=== PATIENT | female | born 1955 | race Caucasian/White ===

== ENCOUNTER 2019-11-09 16:48 | Inpatient (IN) | payer MEDICARE, OTHER ==
[~2019-11-09] VITALS: Ht 170.2 cm; Wt 130.2 kg
[~2019-11-09 16:48] MED LIST: AMBIEN10 MG PO; ATORVASTATIN CA20 MG PO; CARBAMAZEPINE200 MG PO; CIPRO500 MG PO; DIAZEPAM5 MG PO; DIAZEPAM5 MG/1 M1 IV; DOXYCYCLINE HY100 MG PO; FUROSEMIDE40 MG PO; GLIPIZIDE ER5 MG PO; HYDROCODON-ACE1 EAC9 PO; INVOKANA PO; LEVOCETIRIZINE D5 MG PO; LOSARTAN POTAS100 MG PO; METFORMIN HCL500 MG PO; POTASSIUM99 M1 PO; PRENATAL FORMU1 EACH PO; PROMETHAZINE12.5 M1 PO; SOMA350 MG PO
--- OUTSIDE RECORDS SUMMARY | 2019-11-09 16:52 | XMS REPORT ---
Author Author [facility] Organization [facility] Address [address] [place] [address] Phone Unavailable Care Team Providers Care Alterations Supervisor Name Role Phone HALIMA SOMMERS, S (NS) BARRY PCP DAHU, S JIRIES Attphys Unavailable Nunu Howell Attphys TuesdayYvonne Attphys DAJOAO, S JIRIES Admphys Unavailable Payers Payer Name Policy Type Policy Number Effective Date Expiration Date Venita alvarez [facility] [id number] 2017 00:00:00 MICHELLE Nathan [facility] Medicare A & B [id number] 2002 00:00:00 [facility] Problems Condition Name Condition Details Condition Category Status Onset Date Resolution Date Last Treatment Date Treating Clinician Comments Source Congestive heart failure CHF (congestive heart failure) Problem Active [facility] Dyspnea Dyspnea Problem Active [facility] Fever Fever Problem Active [facility] Hypertension Hypertension Problem Active [facility] Obesity Obesity Problem Active [facility] Osteomyelitis Osteomyelitis Problem Active [facility] Type 2 diabetes mellitus Type 2 diabetes mellitus Problem Active [facility] Urinary tract infection UTI (urinary tract infection) Problem Active [facility] Allergies, Adverse Reactions, Alerts Allergy Name Allergy Type Status Severity Reaction(s) Onset Date Inacti ve Date Treating Clinician Comments Source Lisinopril Allergy to Substance Active Unknown 2019-05-23 00:00:00 [facility] Albuterol Allergy to Substance Active Unknown 2019-05-23 00:00:00 [facility] Topiramate Allergy to Substance Active Moderate 2019-05-23 00:00:0 0 [facility] Medications Ordered Medication Name Filled Medication Name Start Date Stop Da te Current Medication? Ordering Clinician Indication Dosage Frequency Signature (SIG) Comments Components Source Atorvastatin Calcium 20 Mg Tablet Atorvastatin Calcium 20 Mg Tablet Yes 20 Bedtime [facility] Carbamazepine 200 Mg Tablet Carbamazepine 200 Mg Tablet Yes [address] [facility] Carisoprodol (Soma) 350 Mg Tablet Carisoprodol (Soma) 350 Mg Tablet Yes 350 Every 6 Hours [facility] Ciprofloxacin Hcl (Cipro) 500 Mg Tablet Ciprofloxacin Hcl (C ipro) 500 Mg Tablet Yes 500 Every 12 Hours [facility] Diazepam 5 Mg Tablet Diazepam 5 Mg Tablet Yes 10 Twice A Day [facility] Doxycycline Hyclate 100 Mg Capsule Doxycycline Hyclate 100 Mg Capsule Yes 100 Twice A Day [facility] Furosemide 40 Mg Tablet Furosemide 40 Mg Tablet Yes 40 Daily [facility] Glipizide (Glipizide Er) 5 Mg Tab.er.24 Glipizide (Glipizide Er) 5 Mg Tab.er.24 Yes 10 Before Supper [facility] Hydrocodone Bit/Acetaminophen (Hydrocodon-Acetaminophn 10-325) 1 Each Tablet Hydrocodone Bit/Acetaminophen (Hydrocodon-Acetaminophn 10-325) 1 Each Tablet Yes Four Times Daily as needed for P ain [facility] Invokana Invokana Yes 100 Before Lunch [facility] Losartan Potassium 100 Mg Tablet Losartan Potassium 100 Mg Tablet Yes 50 Daily for High Blood Pressure [facility] Metformin Hcl 500 Mg Tablet Metformin Hcl 500 Mg Tablet Yes [address] [facility] Potassium Gluconate (Potassium) 99 Mg Tablet Potassium Gluconate (Potassium) 99 Mg Tablet Yes 99 Daily [facility] Vits W-Ca,Fe,Fa(<1MG) ( Formula) 1 Ea ch Tablet Vits W- Ca,Fe,Fa(<1MG) ( Formula) 1 Each Tablet Yes Daily [facility] Promethazine Hcl 12.5 Mg Tablet Promethazine Hcl 12.5 Mg Tablet Yes 12.5 As Needed as needed for Nausea [facility] Zolpidem Tartrate (Ambien) 10 Mg Tablet Zolpidem Tartrate (A mbien) 10 Mg Tablet Yes 10 Bedtime as needed for Insomnia [facility] Levocetirizine Dihydrochloride 5 Mg Tablet, 5 Mg Oral Levocetirizine Dihydrochloride 5 Mg Tablet, 5 Mg Oral 2017-06-23 00:00:00 No [address] [facility] Diazepam 5 Mg/1 Ml Vial, 5 Mg Intraven Diazepam 5 Mg/1 Ml Vial, 5 Mg Intraven 2016-09-23 00:00:00 No 5 As Needed as needed for Anxiety [facility] Procedures Procedure Date / Time Performed Performing Clinician [facility] Excision of neuroma 2019-05-31 00:00:00 DORIE MARQUEZ [facility] MRI (magnetic resonance imaging) 2019-05-30 00:00:00 MANOJ MOBLEY [facility] Computed tomography, lower extremity; with contrast aidan fields(s) 2019-05-28 00:00:00 RAIZA IBARRA S [facility] Computed tomography of chest with contrast 2019-05-23 00:00:00 H MARYBEL LUIS [facility] Encounters Start Date/Time End Date/Time Encounter Type Admission Type Attendi [facility] Care Department Encounter ID Source 2019-05-23 18:32:00 2019-06-01 16:15:00 Discharged Inpatient 1 RAIZA IBARRA [facility] [id number] [facility] 2016-09-03 10:44:00 2016-09-03 23:59:00 Outpatient Harsh Howell [facility] [id number] [facility] 2016-08-25 11:06:00 2016-08-25 23:59:00 Outpatient Harsh Howell [facility] [id number] [facility] 2014-04-12 11:52:00 2014-04-12 23:59:00 Outpatient Tuesday, Rosy Russell BALAJIMAHarsh [facility] [id number] 2014-03-25 08:44:00 2014-03-25 23:59:00 Outpatient Tuesday, Rosy Russell [facility] [id number] Results Test Description Test Time Test Comments Results Result Comments Source Bedside Glucose 2019-06-01 16:15:00 Test Item Bedside Glucose (test code = 49343-8) 133 70-120 Meter ID: [id number] [facility] 2019-06-01 07:03:00* Test Item Value Reference Range Interpretation Comments Sodium Level (test code = 2951-2) 134 136-145 [facility]assium Lbhhn6652-52-64 07:03:00* Test Item Value Reference Range Interpretation Comments Potassium Level (test code = 2823-3) 3.2 3.5-5.1 [facility]Chloride Kpqot7675-72-10 07:03:00* Test Item Value Reference Range Interpretation Comments Chloride Level (test code = 2075-0) 104 98-107 [facility] HeightsCarbon Dioxide Sglus8198-95-23 07:03:00* Test Item Value Reference Range Interpretation Comments Carbon Dioxide Level (test code = 2028-9) 23 22-29 [facility] HeightsAnion Ohc6481-10-25 07:03:00* Test Item Value Reference Range Interpretation Comments Anion Gap (test code = 26372-9) 10.2 8-16 [facility] Urea Nytsefms5043-10-87 07:03:00* Test Item Value Reference Range Interpretation Comments Blood Urea Nitrogen (test code = 3094-0) 10 7-26 [facility]Creatinine2019-12-06 07:03:00* Test Item Value Reference Range Interpretation Comments Creatinine (test code = 2160-0) 0.59 0.57-1.11 [facility]UN/Creatinine Yvwpn5791-86-96 07:03:00* Test Item Value Reference Range Interpretation Comments BUN/Creatinine Ratio (test code = 3097-3) 17 6 [facility] HeightsEstimat Glomerular Filtration Rate 2019-06-01 07:03:00* Test Item Value Reference Range Interpretation Comments Estimat Glomerular Filtration Rate (test code = 875123848) > 60 >60 Ranges were taken from the National Kidney Disease Education Program and the [facility] literature.Reference ranges:60 or greater: Hyyevq27-39 ( for 3 consecutive months): Chronic kidney disease 15 or less: Kidney failureSet[facility] HeightsGlucose Tlnuw8046-25-27 07:03:00* Test Item Value Reference Range Interpretation Comments Glucose Level (test code = FMM2866) 148 74-118 [facility] HeightsCalcium Jliby2792-25-35 07:03:00* Test Item Value Reference Range Interpretation Comments Calcium Level (test code = 64600-6) 8.0 8.4-10.2 [facility] HeightsVancomycin Level Usuupa7144-66-00 06:33:00* Test Item Value Reference Range Interpretation Comments Vancomycin Level Trough (test code = 4092-3) 14.1 5.0-10.0 Results repeated and called to ABDIAS REYNOSO at 0633 on 06/01/19 by Flakito Robertson . Read back and verified.[facility] HeightsWhite Blood Xhzmu9883-99-15 06:17:00* Test Item Value Reference Range Interpretation Comments White Blood Count (test code = 6690-2) 6.80 4.8-10.8 [facility] HeightsRed Blood Jfgli9779-90-69 06:17:00* Test Item Value Reference Range Interpretation Comments Red Blood Count (test code = 789-8) 3.46 3.6-5.1 [facility]Hemoglobin2019-12-06 06:17:00* Test Item Value Reference Range Interpretation Comments Hemoglobin (test code = 08108-4) 10.8 12.0-16.0 [facility] HeightsHematocrit2019-12-06 06:17:00* Test Item Value Reference Range Interpretation Comments Hematocrit (test code = 4544-3) 34.6 34.2-44.1 [facility] HeightsMean Corpuscular Zdsmuv0335-36-71 06:17:00* Test Item Value Reference Range Interpretation Comments Mean Corpuscular Volume (test code = 787-2) 100.0 81-99 [facility] HeightsMean Corpuscular Erwroluznc9008-40-59 06:17:00* Test Item Value Reference Range Interpretation Comments Mean Corpuscular Hemoglobin (test code = 785-6) 31.2 28-32 [facility] HeightsMean Corpuscular Hemoglobin Concent 2019-06-01 06:17:00* Test Item Value Reference Range Interpretation Comments Mean Corpuscular Hemoglobin Concent (test code = 786-4) 31.2 31-35 [facility] HeightsRed Cell Distribution Ynbtd2010-07-09 06:17:00* Test Item Value Reference Range Interpretation Comments Red Cell Distribution Width (test code = 21648-1) 13.8 11.7 -14.4 [facility] HeightsPlatelet Xnycd3585-31-92 06:17:00* Test Item Value Reference Range Interpretation Comments Platelet Count (test code = 777-3) 236 140-360 [facility] HeightsNeutrophils (%) (Auto)2019-06-01 06:17:00 * Test Item Value Reference Range Interpretation Comments Neutrophils (%) (Auto) (test code = 32540-0) 69.5 38.7-80.0 [facility] HeightsLymphocytes (%) (Auto)2019-06-01 06:17:00 * Test Item Value Reference Range Interpretation Comments Lymphocytes (%) (Auto) (test code = 736-9) 16.8 18.0-39.1 [facility]Monocytes (%) (Auto)2019-06-01 06:17:00* Test Item Value Reference Range Interpretation Comments Monocytes (%) (Auto) (test code = 5905-5) 9.6 4.4-11.3 [facility]Eosinophils (%) (Auto)2019-06-01 06:17:00 * Test Item Value Reference Range Interpretation Comments Eosinophils (%) (Auto) (test code = 713-8) 1.8 0.0-6.0 [facility]Basophils (%) (Auto)2019-06-01 06:17:00* Test Item Value Reference Range Interpretation Comments Basophils (%) (Auto) (test code = 706-2) 0.4 0.0-1.0 [facility] HeightsIM GRANULOCYTES %2019-06-01 06:17:00* Test Item Value Reference Range Interpretation Comments IM GRANULOCYTES % (test code = IM GRANULOCYTES %) 1.9 0.0- 1.0 [facility] HeightsNeutrophils # (Auto)2019-06-01 06:17:00* Test Item Value Reference Range Interpretation Comments Neutrophils # (Auto) (test code = 751-8) 4.7 2.1-6.9 [facility] HeightsLymphocytes # (Auto)2019-06-01 06:17:00* Test Item Value Reference Range Interpretation Comments Lymphocytes # (Auto) (test code = 69812-2) 1.1 1.0-3.2 [facility] HeightsMonocytes # (Auto)2019-06-01 06:17:00* Test Item Value Reference Range Interpretation Comments Monocytes # (Auto) (test code = 742-7) 0.7 0.2-0.8 [facility]Eosinophils # (Auto)2019-06-01 06:17:00* Test Item Value Reference Range Interpretation Comments Eosinophils # (Auto) (test code = 711-2) 0.1 0.0-0.4 [facility]Basophils # (Auto)2019-06-01 06:17:00* Test Item Value Reference Range Interpretation Comments Basophils # (Auto) (test code = 704-7) 0.0 0.0-0.1 [facility] HeightsAbsolute Immature Granulocyte (auto 2019-06-01 06:17:00* Test Item Value Reference Range Interpretation Comments Absolute Immature Granulocyte (auto (anil t code = Absolute Immature Granulocyte (auto) 0.13 0-0.1 [facility] HeightsClostridium Difficile Toxin A & B 2019-05-31 14:19:00* Test Item Value Reference Range Interpretation Comments Clostridium Difficile Toxin A & B (test code = 376293436) POSI TIVE NEGATIVE Results called to JOHNNY THOMPSON at 1418 on 05/31/19 by Dominique Hagan. RB OK.Resu lts called to ARMANDO LUNA in infection control at 1418 on 05/31/19 by Dominique orona.PT had 3 bm in 24 hours;no previous positiveTesting on stool aspirate spe cimens is outside industrial accountant claims since specimen type not validated on this assay.[facility] HeightsTotal Tztpdndlr2221-44-25 06:14:00 * Test Item Value Reference Range Interpretation Comments Total Bilirubin (test code = 1975-2) 0.3 0.2-1.2 [facility] HeightsAspartate Amino Transf (AST/SGOT) 2019-05-31 06:14:00* Test Item Value Reference Range Interpretation Comments Aspartate Amino Transf (AST/SGOT) (test code = Aspartate Amino Transf (AST/SGOT)) 22 5-34 [facility] HeightsAlanine Aminotransferase (ALT/SGPT) 2019-05-31 06:14:00* Test Item Value Reference Range Interpretation Comments Alanine Aminotransferase (ALT/SGPT) (test code = 1742-6) 19 0-55 [facility] HeightsTotal Csraqix3440-25-55 06:14:00* Test Item Value Reference Range Interpretation Comments Total Protein (test code = 2885-2) 6.7 6.5-8.1 [facility] HeightsAlbumin2019-12-05 06:14:00* Test Item Value Reference Range Interpretation Comments Albumin (test code = 1751-7) 2.3 3.5-5.0 [facility] HeightsGlobulin2019-12-05 06:14:00* Test Item Value Reference Range Interpretation Comments Globulin (test code = 60755-3) 4.4 2.3-3.5 [facility] HeightsAlbumin/Globulin Wtceh9237-11-96 06:14:00 * Test Item Value Reference Range Interpretation Comments Albumin/Globulin Ratio (test code = 1759-0) 0.5 0.8-2.0 [facility] HeightsAlkaline Gfwkfmdwmnm1101-49-25 06:14:00* Test Item Value Reference Range Interpretation Comments Alkaline Phosphatase (test code = 6768-6) 80 40-150 [facility] HeightsDifferential Total Cells Counted 2019-05-30 08:15:00* Test Item Value Reference Range Interpretation Comments Differential Total Cells Counted (test code = Differeleuterio tial Total Cells Counted) 100 [facility] HeightsNeutrophils % (Manual)2019-05-30 08:15:00 * Test Item Value Reference Range Interpretation Comments Neutrophils % (Manual) (test code = 86953-3) 72 40-74 [facility] HeightsBand Neutrophils %2019-05-30 08:15:00* Test Item Value Reference Range Interpretation Comments Band Neutrophils % (test code = 764-1) 3 [facility]Lymphocytes % (Manual)2019-05-30 08:15:00 * Test Item Value Reference Range Interpretation Comments Lymphocytes % (Manual) (test code = 737-7) 13 19-48 [facility]Monocytes % (Manual)2019-05-30 08:15:00* Test Item Value Reference Range Interpretation Comments Monocytes % (Manual) (test code = 744-3) 10 3.4-9.0 [facility]Eosinophils % (Manual)2019-05-30 08:15:00 * Test Item Value Reference Range Interpretation Comments Eosinophils % (Manual) (test code = 714-6) 2 0-7 [facility] HeightsPlatelet Dylgrzpc1072-94-55 08:15:00* Test Item Value Reference Range Interpretation Comments Platelet Estimate (test code = 89399-0) ADEQUATE [facility] HeightsPlatelet Morphology Wgrdfyf0179-99-07 08:15:00* Test Item Value Reference Range Interpretation Comments Platelet Morphology Comment (test code = 31828-9) NORMAL [facility] HeightsPoikilocytosis2019-12-04 08:15:00* Test Item Value Reference Range Interpretation Comments Poikilocytosis (test code = 779-9) SLIGHT [facility] HeightsAnisocytosis2019-12-04 08:15:00* Test Item Value Reference Range Interpretation Comments Anisocytosis (test code = 702-1) SLIGHT [facility] HeightsOvalocytes2019-12-04 08:15:00* Test Item Value Reference Range Interpretation Comments Ovalocytes (test code = 774-0) FEW [facility] HeightsRed Cell Morphology Bmwwobo4585-48-44 08:15:00* Test Item Value Reference Range Interpretation Comments Red Cell Morphology Comment (test code = 6742-1) ABNORMAL [facility] HeightsBlood Yuccdet4166-66-49 12:32:00* Test Item Value Reference Range Interpretation Comments Blood Culture (test code = 31818016) NO GROWTH AFTER 5 DAYS, FINAL REPORT [facility] HeightsCT FOOT LEFT [id number] 13:12:00 [place] [address] Patient Name: ALEXANDRE HARDY MR #: [id number] : 1955 Age/Sex: 63/F Req #: [id number] Adm Physician: RAIZA IBARRA MD Ordered by: RAIZA IBARRA MD Report #: [id number] Location: MED/SURG2 Room/Bed: [facility] Procedure: [id number] C T/CT FOOT LEFT W Exam Date: 05/28/19 Exam Time: 1215 REPORT STATUS: Signed TECHNIQUE: Computed tomography imaging of the LEFT foot was performed with injected c ontrast. 100 cc of Isovue-370.Dose modulation, iterative reconstruction, and/o r weight based adjustment of the mA/kV was utilized to reduce the radiation do se to as low as reasonably achievable. HISTORY: Pain, evaluate for infecti on COMPARISON: None available. DISCUSSION: Soft tissue ulceration o f the lateral foot extending to the underlying bone. The cortical erosion a nd periostitis involving the anterolateral calcaneus, lateral cuboid, and fift h metatarsal base. Soft tissue phlegmon/small abscess measuring approximate ly 1.3 cm adjacent to the calcaneus. Skin thickening. Joint soft tissue s welling. IMPRESSION: Soft tissue ulceration of the lateral foot with osteomyelitis of the calcaneus, cuboid, and fifth metatarsal base Signed by: Dr. Marcelino Stewart M.D. on 05/28/2019 1:18 PM Dictated By: MARCELINO SCHULTZ MD 1318 Trans cribed By: INDU on 05/28/19 1318 COPY TO: RAIZA IBARRA MD Reactive Pyprenooqum4239-09-60 08:50:00* Test Item Value Reference Range Interpretation Comments Reactive Lymphocytes (test code = 81684-2) 1 [facility] HeightsCreatine Kinase UG4134-70-00 18:03:00* Test Item Value Reference Range Interpretation Comments Creatine Kinase MB (test code = 56642-0) 1.60 0-5.0 [facility] HeightsTroponin P0074-60-37 18:03:00* Test Item Value Reference Range Interpretation Comments Troponin I (test code = IYX6750) 0.028 0-0.300 [facility] HeightsCreatine Uhyoij2444-04-69 17:56:00* Test Item Value Reference Range Interpretation Comments Creatine Kinase (test code = 2157-6) 288 29-168 [facility] HeightsTriglycerides Qkpjn7792-76-88 09:45:00* Test Item Value Reference Range Interpretation Comments Triglycerides Level (test code = 2571-8) 113 0-149 [facility] HeightsCholesterol Bhbpe8683-81-17 09:45:00* Test Item Value Reference Range Interpretation Comments Cholesterol Level (test code = 2093-3) 92 0-199 Less than 200 mg/dL Low Mdbn752 - 239 mg/dL Borderline Scro097 m g/dl and greater High Risk [facility] HeightsLDL Ydfazcjiqac2437-20-26 09:45:00* Test Item Value Reference Range Interpretation Comments LDL Cholesterol (test code = 2089-1) 54 60-130 [facility] HeightsHDL Jtteunrrely5527-26-86 09:45:00* Test Item Value Reference Range Interpretation Comments HDL Cholesterol (test code = 2085-9) 15 40-60 [facility] HeightsCholesterol/HDL Yuegs9411-10-04 09:45:00 * Test Item Value Reference Range Interpretation Comments Cholesterol/HDL Ratio (test code = 9830-1) 6.1 3.0-3.6 [facility] HeightsArterial Blood bP6191-61-05 09:13:00* Test Item Value Reference Range Interpretation Comments Arterial Blood pH (test code = 2744-1) 7.46 7.31-7.41 [facility] HeightsArterial Blood Partial Pressure CO2 2019-05-26 09:13:00* Test Item Value Reference Range Interpretation Comments Arterial Blood Partial Pressure CO2 (test code = 2019-01) 47 41-51 [facility] HeightsArterial Blood Partial Pressure O2 2019-05-26 09:13:00* Test Item Value Reference Range Interpretation Comments Arterial Blood Partial Pressure O2 (test code = 2019-8) 91 80-105 [facility] HeightsArterial Blood IQO59629-36-14 09:13:00* Test Item Value Reference Range Interpretation Comments Arterial Blood HCO3 (test code = 1960-4) 33 23-28 [facility] HeightsArterial Blood Base Ogdhhj8745-26-79 09:13:00* Test Item Value Reference Range Interpretation Comments Arterial Blood Base Excess (test code = 1925-7) 9.0 -2-3 [facility] HeightsArterial Blood Oxygen Saturation 2019-05-26 09:13:00* Test Item Value Reference Range Interpretation Comments Arterial Blood Oxygen Saturation (test code = 2708-6) 97.0 95-98 [facility] HeightsFiO22019-11-30 09:13:00* Test Item Value Reference Range Interpretation Comments FiO2 (test code = FiO2) 36 [facility] GOPOFXNQ2166-30-48 15:42:00 [place] [address] Patient Name: ALEXANDRE HARDY MR #: [id number] : 1955 Age/Sex: 63/F Req #: [id number] Adm Physician: RAIZA IBARRA MD Ordered by: DORIE MARQUEZ DPM Report #: [id number] Location: ICU Room/Bed: [place] [address] Procedure: [id number] DX/FOOT LEFT COMPLETE Exam Date: Exam Time: REPORT STATUS: Signed EXAMINATION: FO OT LEFT COMPLETE INDICATION: Lateral foot wound COMPARISON: None FINDINGS: Portable radiographs of the left foot were obtained. The re are erosive changes along the base of the fifth metatarsal and the proximal fifth metatarsal shaft width sclerosis suggesting a component of chronic oste omyelitis as well as periosteal reaction suggesting possible acute component. There is extensive associated diffuse soft tissue swelling. No acute fracture or dislocation. Scattered degenerative changes. IMPRESSION: Erosion, s clerotic changes, and periosteal reaction along the base of the fifth metatars al concerning can be seen with acute on chronic osteomyelitis. Significant ass ociated diffuse soft tissue swelling. Signed by: Gianluca Hurt MD on 05/25/20 3:45 PM Dictated By: GIANLUCA HURT MD 44 Transcribed By: INDU on 05/25/191544 COPY TO: DOIRE MARQUEZ DPM Magnesium Oydpy1909-07-77 06:47:00* Test Item Value Reference Range Interpretation Comments Magnesium Level (test code = 83599-5) 1.8 1.3-2.1 [facility] SINGLE (PORTABLE)2019-05-24 13:33:00 [place] [address] Patient Name: ALEXANDRE HARDY MR #: [id number] : 1955 Age/Sex: 63/F Req #: [id number] Adm Physician: RAIZA IBARRA MD Ordered by: MARYBEL RIOJAS MD Report #: [id number] Location: ICU Room/Bed: [place] [address] Procedure: [id number] DX/ CHEST SINGLE (PORTABLE) Exam Date: 05/24/19 Exam Jaspal e: 1315 REPORT STATUS: Signed ` Examination: Single AP view of the chest. COMPARISON: Portable chest 2018 INDICATION: PICC placement IMPRESSION: 1. Lines and Tu bes: Interval placement of right-sided PICC line, which has its distal tip pro jecting in the mid SVC. 2. Otherwise, no interval change in low lung volumes, central venous congestion and bibasilar patchy airspace opacities, likely refl ecting atelectasis Signed by: Dr. Antonio Sun M.D. on 05/24/2019 1:3 9 PM Dictated By: ANTONIO SUN MD 133 Transcribed By: INDU on 05/24/19 1339 COPY TO : MARYBEL RIOJAS MD CHEST SINGLE (PORTABLE)2019-05-24 06:32:00 [place] [address] Patient Name: ALEXANDRE HARDY MR #: [id number] : 1955 Age/Sex: 63/F Req #: [id number] Adm Physician: RAIZA IBARRA MD Ordered by: VICKY SOMMERS, NICK SOMMERS Report #: [id number] Location: ICU Room/Bed: ICU [facility] Procedure: 1128-00 [id number] DX/CHEST SINGLE (PORTABLE) Exam Date: 05/24/19 Ex am Time: 0450 REPORT STATUS: Signed EXAMINATION: CHEST SINGLE (PORTABLE) INDICATION: CHF, pneumonia. COMPARISON: Chest radiograph 05/23/2019, CT Chest 05/23/2019. FINDINGS: AP view TUBES and LINES: None. LUNGS: Low lung volumes . There is perihilar fullness and indistinctness of the pulmonary vasculature . Linear and patchy opacities at the lung bases, likely atelectasis. No new co nsolidation. PLEURA: No pleural effusion or pneumothorax. HEART AND M EDIASTINUM: Unremarkable cardiomediastinal silhouette. BONES AND SOFT TISSU ES: No acute osseous lesion. Soft tissues are unremarkable. UPPER ABDOM EN: No free air under the diaphragm. IMPRESSION: Low lung volumes wi th mild pulmonary interstitial edema. Opacities at the lung bases, more likely atelectasis than pneumonia. Signed by: Dr. David Carreon MD on 05/24/2019 6: 34 AM Dictated By: DAVID CARREON MD 3 Transcribed By: INDU on 05/24/19633 COPY TO: NICK BARRAZA Carbamazepine (Tegretol) Wwmci6877-25-29 05:55:00* Test Item Value Reference Range Interpretation Comments Carbamazepine (Tegretol) Level (test code = 3432-2) 6.43 4. 0-12.0 [facility] [id number] 22:13:00 [place] [address] Patient Name: ALEXANDRE HARDY MR #: [id number] : 1955 Age/Sex: 63/F Req #: [id number] Adm Physician: RAIZA IBARRA MD Ordered by: MARYBEL RIOJAS MD Report #: [id number] Location: ICU Room/Bed: ICU [facility] Procedure: [id number] CT/ CT CHEST W Exam Date: 05/23/19 Exam Time: 2146 REPORT STATUS: Signed EXAM: CT Chest WITH contrast- Pulmonary Embolism Protocol INDICATION: Shortness of breath. COMPARISON: Chest radiograph 05/23/2019. TECHNIQUE: Chest was sca nned utilizing a multidetector helical scanner from the lung apex through the level of the diaphragm after administration of IV contrast. Thin section recon structions were obtained with special concentration on the pulmonary arteries. Coronal and sagittal reformations were obtained. Pulmonary embolism protocol was performed. IV CONTRAST: 100 cc of Isovue 370 RADIA TION DOSE: Total DLP: 551.3 mGy*cm Dose modulation, iterative r econstruction, and/or weight based adjustment of the mA/kV was utilized to red uce the radiation dose to as low as reasonably achievable. CO MPLICATIONS: None FINDINGS: LINES/ TUBES: None. PULMONARY ARTERIE S: Motion artifact and contrast opacification limits evaluation of the segment al and subsegmental pulmonary arteries. No evidence of main or lobar pulmonary embolism. Main pulmonary artery measures 3.7 cm in diameter. LUNGS AND A IRWAYS: The central airways are patent. Linear subsegmental atelectasis in the lung bases. Motion artifact limits evaluation for underlying pulmonary nodule. Mild smooth interlobular septal in the upper lobes with patchy ground glass opacities. PLEURA: The pleural spaces are clear. HEART AND MEDIASTINUM : The thyroid gland is normal. No mediastinal, hilar or axillary lymphadenopa thy. No cardiomegaly or pericardial effusion. Scattered coronary and aortic at herosclerotic calcifications. UPPER ABDOMEN: Limited contrast-enhanced view s of the upper abdomen. Reflux of contrast into the IVC, suggestive of right h eart dysfunction. BONES: No acute osseous abnormality. Bilateral cervical ribs. Old healed bilateral rib fractures. SOFT TISSUES: Unremarkable. IMPRESSION: Motion artifact and contrast opacification limits evaluation of the segmental and subsegmental pulmonary arteries. No evidence of main or lob ar pulmonary embolism. Dilated main pulmonary artery, suggestive of pulmo nary arterial hypertension. Coronary atherosclerosis. Mild pulmonary i nterstitial edema in the upper lobes. Signed by: Dr. David Carreon MD on 04/28 10:21 PM Dictated By: DAVID CARREON MD 20 Transcribed By: INDU on 05/23/192220 COPY TO: MARYBEL RIOJAS MD Influenza Virus Types A,B Fzkeqpv9979-04-62 20:31:00* Test Item Value Reference Range Interpretation Comments Influenza Virus Types A,B Antigen (test code = 73526-2) NEGATIVE NEGATIVE [facility] (PORTABLE)2019-05-23 19:28:00 [facility] [address] [place] [address] Patient Name: ALEXANDRE HARDY MR #: [id number] : 1955 Age/Sex: 63/F Req #: [id number] Adm Physician: RAIZA IBARRA MD Ordered by: NICK PERRY MD, MD Report #: [id number] Location: [facility] Room/Bed: [place] [address] Procedure: 1127-00 38 DX/CHEST SINGLE (PORTABLE) Exam Date: 05/23/19 Ex am Time: 1814 REPORT STATUS: Signed EXAMINATION: CHEST SINGLE (PORTABLE) INDICATION: ERMD OR SHERRIE [id number] Y COMPARISON: Chest radiograph 06/26/2017 FINDINGS: AP view TUBES and LINES: None. LUNGS: Low lung volumes. Bilateral interstitial edema. No lobar consolidations. PLEU RA: No pleural effusion or pneumothorax. HEART AND MEDIASTINUM: Mild enla rgement of the cardiac silhouette. BONES AND SOFT TISSUES: No acute osse ous lesion. Soft tissues are unremarkable. UPPER ABDOMEN: No free air un sherrie the diaphragm. IMPRESSION: Bilateral interstitial edema. Signed by: Dr. Joy Paez M.D. on 05/23/2019 7:29 PM Dicta ankush By: JOY PAEZ MD 28 Transcribed By: INDU on 05/23/191928 COPY T O: NICK PERRY Thyroid Stimulating Hormone (TSH)2019-05-23 18:21:00 * Test Item Value Reference Range Interpretation Comments Thyroid Stimulating Hormone (TSH) (test code = 80342-7) 0.406 0.350-4.940 [facility]-Type Natriuretic Twaghrx5936-32-75 18:14:00* Test Item Value Reference Range Interpretation Comments B-Type Natriuretic Peptide (test code = 84844-4) 116.4 0-100 [facility]2019-[facility] 17:59:00* Test Item Value Reference Range Interpretation Comments Lipase (test code = 3040-3) < 4 8-78 [facility] VFL3274-89-03 17:58:00* Test Item Value Reference Range Interpretation Comments Urine WBC (test code = 5821-4) 11-20 0-5 [facility] VFX1029-42-16 17:58:00* Test Item Value Reference Range Interpretation Comments Urine RBC (test code = 48723-5) 6-10 0-5 [facility] Exvepshm4355-29-88 17:58:00* Test Item Value Reference Range Interpretation Comments Urine Bacteria (test code = 29695-7) MANY NONE [facility] Epithelial Rwvkx7019-99-23 17:58:00 * Test Item Value Reference Range Interpretation Comments Urine Epithelial Cells (test code = 83738-1) NONE NONE [facility] Amorphous Bpthlxsg5465-80-23 17:58:00* Test Item Value Reference Range Interpretation Comments Urine Amorphous Sediment (test code = 8246-1) MODERATE FEW [facility] Xmdyj4016-42-21 17:54:00* Test Item Value Reference Range Interpretation Comments Lactic Acid Level (test code = Lactic Acid Level) 1.7 0.5- 2.0 [facility] Ervk8032-04-44 17:49:00* Test Item Value Reference Range Interpretation Comments Prothrombin Time (test code = 5902-2) 15.5 11.9-14.5 [facility] International Ratio 2019-05-23 17:49:00* Test Item Value Reference Range Interpretation Comments Prothromb Time International Ratio (test code = 6301-6) 1.17 Oral Anticoagulant Therapy INR Values:1. Low Intensity Therapy 1.5 - 2.02 . Moderate Intensity Therapy 2.0 - 3.03. High Intensity Therapy(1) 2.5 - 3. 54. High Intensity Therapy(2) 3.0 - 4.05. Panic Value INR > 5.0 [facility] Partial Thromboplast Time 2019-05-23 17:49:00* Test Item Value Reference Range Interpretation Comments Activated Partial Thromboplast Time (test code = 64616-9) 33.2 23.8-35.5 [facility] Xoylk1456-21-70 17:46:00* Test Item Value Reference Range Interpretation Comments Urine Color (test code = 5778-6) YELLOW YELLOW [facility] Tujkmje1454-24-07 17:46:00* Test Item Value Reference Range Interpretation Comments Urine Clarity (test code = 30066-1) CLOUDY CLEAR [facility] Specific Empufwy3559-03-64 17:46:00 * Test Item Value Reference Range Interpretation Comments Urine Specific [place] (test code = 5811-5) 1.020 1.010-1.02 5 [facility] yC9913-14-03 17:46:00* Test Item Value Reference Range Interpretation Comments Urine pH (test code = 64997-3) 6 5-7 [facility] Leukocyte Fztobiol5590-54-14 17:46:00* Test Item Value Reference Range Interpretation Comments Urine Leukocyte Esterase (test code = 29143-0) NEGATIVE NEGATIV E [facility] Werksel0457-81-05 17:46:00* Test Item Value Reference Range Interpretation Comments Urine Nitrite (test code = 45840-7) POSITIVE NEGATIVE [facility] Uglwgxl5734-12-50 17:46:00* Test Item Value Reference Range Interpretation Comments Urine Protein (test code = 26902-3) 2+ NEGATIVE [facility] Glucose (UA)2019-05-23 17:46:00* Test Item Value Reference Range Interpretation Comments Urine Glucose (UA) (test code = 91070-8) 2+ NEGATIVE [facility] Faqyerm9303-84-80 17:46:00* Test Item Value Reference Range Interpretation Comments Urine Ketones (test code = 73484-4) 1+ NEGATIVE [facility] Hlhmhwebeyri8416-35-73 17:46:00* Test Item Value Reference Range Interpretation Comments Urine Urobilinogen (test code = 46394-3) 0.2 0.2-1 [facility] Gmrngmemr5809-14-39 17:46:00* Test Item Value Reference Range Interpretation Comments Urine Bilirubin (test code = 1977-8) NEGATIVE NEGATIVE [facility] Gltgy1736-73-45 17:46:00* Test Item Value Reference Range Interpretation Comments Urine Blood (test code = 95295-5) 1+ NEGATIVE [facility] [address] [place] [address] Patient Name: ALEXANDRE HARDY MR #: [id number] : 1955 Age/Sex: 61/F Req #: [id number] Adm Physician: RAIZA IBARRA MD Ordered by: RAIZA IBARRA MD Report #: [id number] [facility]: [facility] Room/Bed: [facility] Procedure: [id number] M RI/MRI FOOT LEFT WOW Exam Date: 06/28/17 Exam Time: 1015 REPORT STATUS: Signed MRI of the left foot with and without contra st. History: Foot pain. Osteomyelitis. Infection. Technique: Multiplan ar multisequence MRI of the foot with and without intravenous contrast. 10 cc IV gadolinium contrast material was administered. Comparison: Radiographs 06/23/2017. MRI 09/24/2016 Findings: There is a large skin defect/ulcera tion at the lateral aspect of the foot at the level of the proximal fifth meta tarsal and cuboid bone. There is adjacent abnormal soft tissue edema. Th ere is adjacent abnormal contrast enhancement and a small amount of air within the soft tissues. The abnormal contrast enhancement of the surrounding soft t issues extends to the level of the adjacent bone. There is what appears to be an adjacent phlegmon. No well-formed abscess is seen. There is abnormal adj acent cortical destruction and bone marrow edema involving the cuboid bone and proximal fifth metatarsal. This is consistent with osteomyelitis. Additi onally, there is abnormal bone marrow edema in the anterior lateral calcaneus and in the cuneiform bones. This may be stress related. There is bone marrow e josh in the proximal second, third and fourth metatarsals which also could be stress related. There is diffuse muscle atrophy. Impression: Skin de fect/ulceration with associated cellulitis, phlegmon and osteomyelitis as desc ribed above. This predominantly involves the lateral aspect of the foot at the level of the proximal fifth metatarsal and adjacent cuboid bones. This is wor se when compared with the prior MRI dated 09/24/2016. Signed by: Dr. Renee Siegel M.D. on 06/28/2017 11:59 AM Dictated By: YARI SIEGEL MD, MD Elec tronically Signed By: YARI SIEGEL MD, MD on 06/28/17 115 Transcribed By: ISSA ARELLANO on 06/28/17 1159 COPY TO: RAIZA IBARRA MD CHEST XRAY LINE PLACEMENT [place] [address] Patient Name: ALEXANDRE HARDY MR #: [id number] : 1955 Age/Sex: 61/F Req #: [id number] Adm Physician: RAIZA IBARRA MD Ordered by: DARIUS RYAN MD Report #: [id number] Location: MED/SURG3 Room/Bed: [facility] Procedure: [id number] DX /CHEST XRAY LINE PLACEMENT Exam Date: 06/26/17 Exam Time: 0945 REPORT STATUS: Signed Portable chest x-ray CPT code 71 010 INDICATION: Line placement COMPARISON: Chest x-ray 09/24/2016 FINDINGS: Frontal view of the chest obtained at 0728 hours. The cardiac silhouette is top normal in size and stable. Right PICC line terminates in the SVC without pneumothorax. The pulmonary vascular marking are normal. T he lungs demonstrate chronic subsegmental atelectasis of the lingula and right lung base. No evidence of infiltrate or mass. There is blunting of the r ight lateral costophrenic angle. Blunting of the left lateral costophrenic ang le is stable. The osseous structures are stable. IMPRESSION: 1. Right PICC line as described above. No pneumothorax. 2. New blunting of the right lateral costophrenic angle is suggestive of pleural thickening or effusi on. 3. Subsegmental atelectasis of the lingula is stable. Signed by: Dr. Leonardo Lema MD on 06/26/2017 10:08 AM Dictated By: LEONARDO MCMAHON MD 1008 Transcri bed By: INDU on 06/26/17 1008 COPY TO: DARIUS RYAN MD [place] [address] Patient Name: ALEXANDRE HARDY MR #: [id number] : 1955 Age/Sex: 61/F Req #: [id number] Adm Physician: Ordered by: MEHDI PEREZ MD Report #: [id number] Location: ER Room/Bed: Procedure: [id number] DX/FOOT LEFT COMPLETE Exam Da te: 06/23/17 Exam Time: 1505 REPORT STATUS: Sig audi PROCEDURE: X-RAY LEFT FOOT, COMPLETE COMPARISON: None. IN DICATIONS: CELLULITIS FINDINGS: Markedly decreased mineralization, which limits evaluation of bony structures. Cortical erosion/destruction/ly sis involving the base of the fourth and fifth metatarsal bones, cuboid bone and possibly lateral aspect of the lateral cuneiform bone.. Other cortical surfaces are intact. No acute displaced fracture or dislocation. Large soft tissue defect in the plantar aspect of the foot at the level of the above-charlene cribed changes. Marked generalized soft tissue swelling CONCLUSION: Findings consistent with osteomyelitis involving the fourth and fifth met atarsal bones, cuboid bone, and possibly the lateral aspect of the lateral cu neiform bone. Antonio Sun M.D. Dictated by: Antonio Sun M.D. on 06/23/2017 at 15:54 Electronically approved by: Antonio peralta M.D. on 06/23/2017 at 15:54 Dictated By: NATONIO Jalloh [id number] Transcribed By: MANISH on 06/23/17 6213 COPY TO: MEHDI PEREZ MD
--- OUTSIDE RECORDS SUMMARY | 2019-11-09 16:52 | XMS REPORT | Continuity of Care Document ---
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 11/13/2013 [facility] [place] WHEELCHAIR FINAL FITTING Active 06/27/2000 [facility] PARAPLEGIA NOS Active [facility] LESION OF SCIATIC NERVE, RIGHT LOWER SHANKAR Active [facility] OTHER ABNORMALITIES OF GAIT AND MOBILITY Active [facility] Medications No Data Provided for This Section Allergies, Adverse Reactions, Alerts No Known Medication Allergies Immunizations No Data Provided for This Section Results No Data Provided for This Section Pathology Reports No Data Provided for This Section Diagnostic Reports Report Value Date Source Brain w/wo contrast MRI MRI BR AIN WITHOUT AND WITH CONTRAST COMPARISON: 03/25/2014 CT, 03/26/2011 MRI exam. COMMENTS: No acute intracranial hemorrhage, acute ischemia, or mass identified. No diffusion restriction is identified. Mild cerebral atrophy and partially empty sella turcica configuration are stable since 03/26/2011. Right anterior temporal small developmental venous anomaly or angioma is stable. Minimal right lateral temporal cortical gliosis is also stable, and likely due to prior surgical intervention. Dilated perivascular spaces are seen within the bilateral lentiform nuclei. The brainstem and cerebellum are free of signal abnormality. Mild paranasal sinus mucosal disease is seen without air-fluid level. The mastoid air cells are well aerated. IMPRESSION: 1. No acute hemorrhage, acute ischemia, or mass. 2. Stable right temporal small developme ntal venous anomaly or angioma and small cortical gliosis. 3. Mild paranasal sinusitis. 06/10/2014 [facility] [place] Carotid artery Doppler bilat US Exam: Bilateral Carotid Doppler Ultrasound Reason for Exam: Carotid stenosis Comparison Exam: None Discussion: Real time grayscale, color Doppler imaging, and spectral waveform analysis was performed of the bilateral extracranial carotid arterial system. Right: No significant intimal thickening or plaques seen within the right common carotid artery. Mild amount of plaque seen within the proximal ICA. The waveforms are within normal limits. The right vertebral artery is antegrade in flow. The highest velocity within the right ICA system is 88 cm/sec. The ICA/CCA ratio is 0.91. Left: No significant intimal thickening or plaques seen within the left common carotid artery. Mild amount of plaque seen within the proximal ICA. The waveforms are within normal limits. The left vertebral artery is antegrade in flow. The highest velocity within the left ICA system is 92 cm/sec. The ICA/CCA ratio is 0.71. Impression: 1. Mild amount of plaque seen within th e proximal right and left ICAs, without evidence for significant stenoses. 2. Vertebral arteries are antegrade in flow. 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 There is focal encephalomalacia of the right temporal lobe. The postcontrast sequence demonstrates a right temporal developmental venous anomaly, visible in the comparison MRI. No other enhancing abnormalities are seen. There are prominent perivascular spaces of the region of the bilateral basal ganglia. There is no evidence of acute vascular insults, space occupying lesions, hemorrhage, hydrocephalus, midline shift, or extra- axial collections. IMPRESSION: 1. Right temporal developmental venous a nomaly. 2. Focal encephalomalacia of the the rig ht temporal lobe. 3. No acute intracranial abnormalities a re visualized. SL: 16 03/25/2014 [facility] [place] Consultation Notes No Data Provided for This Section Discharge Summaries No Data Provided for This Section History and Physicals No Data Provided for This Section Vital Signs No Data Provided for This Section Encounters Location Location Details Encounter Type Encounter Number Reason For Visit Attending Provider ADM Date DC Date Status Source [facility] [place] [facility] [id number] Tuesday03/25/2014 03/26/2014 ERIC Magana [facility] - [place] [facility] [id number] 06 Rosy Tuesday04/12/2014 04/13/2014 [facility] [place] [facility] Outpatient [id number] Aston Howell 08/25/2016 08/26/2016 [facility] - [place] [facility] [id number] Aston Howell 09/03/2016 09/04/2016 [facility] [place] Procedures No Data Provided for This Section Assessment and Plan No Data Provided for This Section Plan of Care No Data Provided for This Section Social History Social History Date Source No data available for this section 09/04/2016 [facility] [place] No data available for this section 08/26/2016 [facility] Family History No Data Provided for This Section Advance Directives No Data Provided for This Section Functional Status No Data Provided for This Section
--- OUTSIDE RECORDS SUMMARY | 2019-11-09 16:52 | XMS REPORT | Summary of Care ---
Author Author [facility] Organization [facility] Address Unknown Phone Unavailable Encounter [facility] Jackyntr_cari(FIN) [id number] Date(s): 08/25/16 - 08/25/16 [facility] [address] [place] [address]- Discharge Disposition: Home or Self Care Attending Physician: Aston Howell MD Referring Physician: Aston Howell MD Vital Signs No data available for this section Problem List No data available for this section Allergies, Adverse Reactions, Alerts Substance Reaction Severity Status NKDA Active Medications No data available for this section Results No data available for this section Immunizations No data available for this section Procedures No data available for this section Social History No data available for this section Assessment and Plan No data available for this section
--- OUTSIDE RECORDS SUMMARY | 2019-11-09 16:52 | XMS REPORT | Summary of Care ---
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
--- OUTSIDE RECORDS SUMMARY | 2019-11-09 16:52 | XMS REPORT | Summary of Care ---
Author Author [facility] Outpatient Imaging - [facility] Organization [facility] Outpatient Imaging - [facility] Address Unknown Phone Unavailable Encounter [facility] Jackyntr_cari([facility]) [id number] Date(s): 09/03/16 - 09/03/16 [facility] Outpatient Imaging - [place] [address] [place] [phone] Discharge Disposition: Home or Self Care Attending Physician: Aston Howell MD Vital Signs No [...]
[2019-11-09] MEDS ORDERED: ONDANSETRON HCL INJ 2MG/ML 2ML 2 MG/ML VIAL IV STA (17:04)
[2019-11-09] MEDS ORDERED: MORPHINE SULFATE 2 MG/ML SYR 1ML IV STA (17:04)
[2019-11-09] MEDS ORDERED: PIPER-TAZ 3.375 GM 50 ML IV STA (17:04)
[2019-11-09] MEDS ORDERED: SODIUM CHLORIDE 0.9% 1000ML 1,000 ML IV STA ×2 (17:04→18:53)
[2019-11-09] MEDS ORDERED: MEROPENEM 1GRAM 1 GM in SODIUM CHLORIDE 0.9% 100 ML 100 ML IV STA (17:18)
[2019-11-09 17:30] LABS: BASOPHILS # (AUTO) 0.1 (0.0-0.1); BASOPHILS % 0.3 % (0.0-1.0); EOSINOPHILS # (AUTO) 0.2 (0.0-0.4); EOSINOPHILS % 1.1 % (0.0-6.0); HEMATOCRIT 36.2 % (34.2-44.1); HEMOGLOBIN 11.7 g/dL (12.0-16.0); LYMPHOCYTES # (AUTO) 0.7 (1.0-3.2); LYMPHOCYTES % 4.3 % (18.0-39.1); MEAN CORPUSCULAR HEMOGLOBIN 30.5 pg (28-32); MEAN CORPUSCULAR HGB CONC 32.3 g/dL (31-35); MEAN CORPUSCULAR VOLUME 94.5 fL (81-99); MONOCYTES % 6.3 % (4.4-11.3); NEUTROPHILS # (AUTO) 13.9 (2.1-6.9); NEUTROPHILS % 87.2 % (38.7-80.0); PLATELET COUNT 353 x10e3/uL (140-360); RED BLOOD COUNT 3.83 x10e6/uL (3.6-5.1); RED CELL DISTRIBUTION WIDTH 14.6 % (11.7-14.4)
[2019-11-09] MEDS ORDERED: MEROPENEM 1GM 100 ML IV ONE (17:30)
[2019-11-09] MEDS ORDERED: VANCOMYCIN 1GM/NS 250 ML 250 ML IV ONE (18:00)
[2019-11-09 18:45] LABS: INR 1.21; PROTHROMBIN TIME 16.1 seconds (11.9-14.5)
[2019-11-09] MEDS ORDERED: ONDANSETRON HCL INJ 2MG/ML 2ML 2 MG/ML VIAL IV PRN (18:45)
[2019-11-09] MEDS ORDERED: MORPHINE SULFATE INJ 4 MG/ML INJ 1ML IV PRN (18:45)
[2019-11-09 18:46] LABS: PARTIAL THROMBOPLASTIN TIME 39.6 seconds (23.8-35.5)
--- NOTE | 2019-11-09 18:46 | Diagnostic Imaging Report ---
ANKLE 3+ VIEWS LEFT - 3 views HISTORY: Pain COMPARISON: None available. FINDINGS: See impression. IMPRESSION: No definite evidence of acute displaced fracture. Subtalar and tarsometatarsal joints are obscured, consistent with Charcot arthropathy. Evaluation for underlying small erosions in these areas is limited due to deformities, however erosions along the lateral aspect of the tarsal bones are suspected. Diffuse soft tissue swelling. Signed by: Dr. Ross Vazquez MD on 11/09/2019 6:43 PM
--- NOTE | 2019-11-09 18:50 | Diagnostic Imaging Report ---
FOOT LEFT COMPLETE - 3 views HISTORY: Pain COMPARISON: 05/25/2019 FINDINGS: See impression. IMPRESSION: Diffuse soft tissue swelling, especially in the hindfoot and ankle area. Large soft tissue defect is seen in the lateral aspect of the hindfoot with underlying erosive changes of the base of the fifth metatarsal and lateral tarsal bones. Signed by: Dr. Ross Vazquez MD on 11/09/2019 6:47 PM
[2019-11-09 18:51] LABS: ALANINE AMINOTRANSFERASE 19 IU/L (0-55); ALBUMIN 1.6 g/dL (3.5-5.0); ALBUMIN/GLOBULIN RATIO 0.3 (0.8-2.0); ALKALINE PHOSPHATASE 95 IU/L (40-150); ANION GAP 17.6 mmol/L (8-16); BLOOD UREA NITROGEN 14 mg/dL (7-26); BUN/CREATININE RATIO 18 (6-25); CARBON DIOXIDE 27 mmol/L (22-29); CHLORIDE 94 mmol/L (98-107); CREATININE, SERUM 0.76 mg/dL (0.57-1.11); EST GLOMERULAR FILTRATION RATE > 60 ML/MIN (60-); GLUCOSE 209 mg/dL (74-118); SODIUM 136 mmol/L (136-145)
--- NOTE | 2019-11-09 18:52 | Diagnostic Imaging Report ---
EXAMINATION: CHEST SINGLE (PORTABLE) INDICATION: ^ERMD ORDER ^[id number] ^1820 ^Y COMPARISON: 05/24/2019 FINDINGS: AP view TUBES and LINES: None. LUNGS: Limited by low lung volumes and body habitus. Central vascular congestion. Unchanged left mid to lower lung field linear opacities, likely scarring. PLEURA: No significant pleural effusion or pneumothorax. HEART AND MEDIASTINUM: The cardiomediastinal silhouette is enlarged. BONES AND SOFT TISSUES: No acute osseous lesion. Soft tissues are unremarkable. UPPER ABDOMEN: No free air under the diaphragm. IMPRESSION: Limited as above. Enlarged cardiomediastinal silhouette and central vascular congestion, accentuated by low lung volumes. Left mid to lower lung field linear opacities, unchanged from prior exam, likely scarring. Signed by: Dr. Ross Vazquez MD on 11/09/2019 6:49 PM
[2019-11-09 18:58] LABS: CREATINE KINASE MB 0.4 ng/mL (0-5.0)
--- NOTE | 2019-11-09 19:00 | Emergency Department Note ---
History of Present Illnes History of Present Illness History of Present Illness This is a 63 year old female . c/o infected wound to left foot c/o pain to left foot hx chronic wound foul smelling oozing Historian: Patient Arrival Mode: ems Onset (how long ago): month(s) Radiation: extremity Severity: moderate Onset quality: unable to specify Duration (how long): month(s) Timing of current episode: constant Progression: worsening Relieving factors: none Exacerbating factors: none Associated symptoms: denies other symptoms Treatments prior to arrival: none Previous service: other Past Medical/Family History Physician Review I have reviewed the patient's past medical and family history. Any updates have been documented here. Past Medical History Recent Fever: No New/Unexplained Change in Ment: No Past Medical History: Hypertension, Diabetes, CHF, Hyperlipedemia, Chronic Back Pain Other Medical History: chronic infected left foot wound Past Surgical History: Appendectomy, Hernia Repair, Back Surgery Other Surgery: HERNIA REPAIR Social History Smoking Cessation: Never Smoker Alcohol Use: None Any Illegal Drug Use: No TB Exposure/Symptoms: No Physically hurt or threatened: No Family History Family history of heart diseas: No Other Last Tetanus: UNK Any Pre-Existing Lines (PICC,: No Review of Systems Review of Systems Constitutional: as per HPI EENTM: no symptoms Cardiovascular: no symptoms Respiratory: cough Gastrointestinal: no symptoms Genitourinary: no symptoms Musculoskeletal: other (noted chronic left foot wound stage 3 ulcer / lateral left foot area - foot swollen and red/ wound draining serious fluid and has foul oder) Neurological: no symptoms Psychological: no symptoms Endocrine: no symptoms Hematological/Lymphatic: no symptoms Review of other systems All other systems reviewed and negative. Physical Exam Related Data Allergies: Coded Allergies: topiramate (Verified Allergy, Intermediate, 05/23/19) albuterol (Verified Allergy, Unknown, 05/23/19) lisinopril (Verified Allergy, Unknown, 05/23/19) Triage Vital Signs Vital Signs Date Time Temp Pulse Resp B/P (MAP) Pulse Ox O2 Delivery O2 Flow Rate FiO2 11/09/19 17:09 99.6 89 20 150/68 99 Vital signs reviewed: Yes Physical Exam CONSTITUTIONAL Constitutional: obese HENT HENT: normocephalic, atraumatic, oropharynx clear/moist, nose normal HENT L/R: left ext ear normal, right ext ear normal EYES Eyes: conjunctivae normal, EOM normal NECK Neck: ROM normal PULMONARY Pulmonary: effort normal, breath sounds normal CARDIOVASCULAR Cardiovascular: regular rhythm, heart sounds normal, capillary refill normal, normal rate GASTROINTESTINAL Abdominal: soft, nontender, bowel sounds normal GENITOURINARY Genitourinary: exam deferred SKIN Skin: other (noted chronic left foot wound stage 3 ulcer / lateral left foot area - foot swollen and red/ wound draining serious fluid and has foul oder) MUSCULOSKELETAL Musculoskeletal: other (noted chronic left foot wound stage 3 ulcer / lateral left foot area - foot swollen and red/ wound draining serious fluid and has foul oder) NEUROLOGICAL Neurological: alert, oriented x 3 PSYCHOLOGICAL Psychological: mood/affect normal, judgement normal Results Laboratory Laboratory Laboratory Tests Test 11/09/19 18:21 11/09/19 17:40 11/09/19 17:10 Prothrombin Time 16.1 seconds (11.9-14.5) Prothromb Time International Ratio 1.21 Activated Partial Thromboplast Time 39.6 seconds (23.8-35.5) Sodium Level 136 mmol/L (136-145) Potassium Level 2.6 mmol/L (3.5-5.1) Chloride Level 94 mmol/L (98-107) Carbon Dioxide Level 27 mmol/L (22-29) Anion Gap 17.6 mmol/L (8-16) Blood Urea Nitrogen 14 mg/dL (7-26) Creatinine 0.76 mg/dL (0.57-1.11) Estimat Glomerular Filtration Rate > 60 ML/MIN (60-) BUN/Creatinine Ratio 18 (6-25) Glucose Level 209 mg/dL (74-118) Lactic Acid Level 2.9 mmol/L (0.5-2.0) Calcium Level 8.0 mg/dL (8.4-10.2) Total Bilirubin 0.4 mg/dL (0.2-1.2) Aspartate Amino Transf (AST/SGOT) 54 IU/L (5-34) Alanine Aminotransferase (ALT/SGPT) 19 IU/L (0-55) Alkaline Phosphatase 95 IU/L (40-150) Creatine Kinase 26 IU/L (29-168) Creatine Kinase MB 0.40 ng/mL (0-5.0) Troponin I 0.011 ng/mL (0-0.300) Total Protein 7.2 g/dL (6.5-8.1) Albumin 1.6 g/dL (3.5-5.0) Globulin 5.6 g/dL (2.3-3.5) Albumin/Globulin Ratio 0.3 (0.8-2.0) White Blood Count 15.97 x10e3/uL (4.8-10.8) Red Blood Count 3.83 x10e6/uL (3.6-5.1) Hemoglobin 11.7 g/dL (12.0-16.0) Hematocrit 36.2 % (34.2-44.1) Mean Corpuscular Volume 94.5 fL (81-99) Mean Corpuscular Hemoglobin 30.5 pg (28-32) Mean Corpuscular Hemoglobin Concent 32.3 g/dL (31-35) Red Cell Distribution Width 14.6 % (11.7-14.4) Platelet Count 353 x10e3/uL (140-360) Neutrophils (%) (Auto) 87.2 % (38.7-80.0) Lymphocytes (%) (Auto) 4.3 % (18.0-39.1) Monocytes (%) (Auto) 6.3 % (4.4-11.3) Eosinophils (%) (Auto) 1.1 % (0.0-6.0) Basophils (%) (Auto) 0.3 % (0.0-1.0) Neutrophils # (Auto) 13.9 (2.1-6.9) Lymphocytes # (Auto) 0.7 (1.0-3.2) Monocytes # (Auto) 1.0 (0.2-0.8) Eosinophils # (Auto) 0.2 (0.0-0.4) Basophils # (Auto) 0.1 (0.0-0.1) Absolute Immature Granulocyte (auto 0.12 x10e3/uL (0-0.1) Laboratory Tests Test 11/09/19 18:21 11/09/19 17:40 11/09/19 17:10 Prothrombin Time 16.1 seconds (11.9-14.5) Prothromb Time International Ratio 1.21 Activated Partial Thromboplast Time 39.6 seconds (23.8-35.5) Lactic Acid Level 2.9 mmol/L (0.5-2.0) White Blood Count 15.97 x10e3/uL (4.8-10.8) Red Blood Count 3.83 x10e6/uL (3.6-5.1) Hemoglobin 11.7 g/dL (12.0-16.0) Hematocrit 36.2 % (34.2-44.1) Mean Corpuscular Volume 94.5 fL (81-99) Mean Corpuscular Hemoglobin 30.5 pg (28-32) Mean Corpuscular Hemoglobin Concent 32.3 g/dL (31-35) Red Cell Distribution Width 14.6 % (11.7-14.4) Platelet Count 353 x10e3/uL (140-360) Neutrophils (%) (Auto) 87.2 % (38.7-80.0) Lymphocytes (%) (Auto) 4.3 % (18.0-39.1) Monocytes (%) (Auto) 6.3 % (4.4-11.3) Eosinophils (%) (Auto) 1.1 % (0.0-6.0) Basophils (%) (Auto) 0.3 % (0.0-1.0) Neutrophils # (Auto) 13.9 (2.1-6.9) Lymphocytes # (Auto) 0.7 (1.0-3.2) Monocytes # (Auto) 1.0 (0.2-0.8) Eosinophils # (Auto) 0.2 (0.0-0.4) Basophils # (Auto) 0.1 (0.0-0.1) Absolute Immature Granulocyte (auto 0.12 x10e3/uL (0-0.1) Laboratory Tests Test 11/09/19 18:21 11/09/19 17:40 11/09/19 17:10 Prothrombin Time 16.1 seconds (11.9-14.5) Prothromb Time International Ratio 1.21 Activated Partial Thromboplast Time 39.6 seconds (23.8-35.5) Lactic Acid Level 2.9 mmol/L (0.5-2.0) White Blood Count 15.97 x10e3/uL (4.8-10.8) Red Blood Count 3.83 x10e6/uL (3.6-5.1) Hemoglobin 11.7 g/dL (12.0-16.0) Hematocrit 36.2 % (34.2-44.1) Mean Corpuscular Volume 94.5 fL (81-99) Mean Corpuscular Hemoglobin 30.5 pg (28-32) Mean Corpuscular Hemoglobin Concent 32.3 g/dL (31-35) Red Cell Distribution Width 14.6 % (11.7-14.4) Platelet Count 353 x10e3/uL (140-360) Neutrophils (%) (Auto) 87.2 % (38.7-80.0) Lymphocytes (%) (Auto) 4.3 % (18.0-39.1) Monocytes (%) (Auto) 6.3 % (4.4-11.3) Eosinophils (%) (Auto) 1.1 % (0.0-6.0) Basophils (%) (Auto) 0.3 % (0.0-1.0) Neutrophils # (Auto) 13.9 (2.1-6.9) Lymphocytes # (Auto) 0.7 (1.0-3.2) Monocytes # (Auto) 1.0 (0.2-0.8) Eosinophils # (Auto) 0.2 (0.0-0.4) Basophils # (Auto) 0.1 (0.0-0.1) Absolute Immature Granulocyte (auto 0.12 x10e3/uL (0-0.1) Laboratory Tests Test 11/09/19 17:40 11/09/19 17:10 White Blood Count 15.97 x10e3/uL (4.8-10.8) Red Blood Count 3.83 x10e6/uL (3.6-5.1) Hemoglobin 11.7 g/dL (12.0-16.0) Hematocrit 36.2 % (34.2-44.1) Mean Corpuscular Volume 94.5 fL (81-99) Mean Corpuscular Hemoglobin 30.5 pg (28-32) Mean Corpuscular Hemoglobin Concent 32.3 g/dL (31-35) Red Cell Distribution Width 14.6 % (11.7-14.4) Platelet Count 353 x10e3/uL (140-360) Neutrophils (%) (Auto) 87.2 % (38.7-80.0) Lymphocytes (%) (Auto) 4.3 % (18.0-39.1) Monocytes (%) (Auto) 6.3 % (4.4-11.3) Eosinophils (%) (Auto) 1.1 % (0.0-6.0) Basophils (%) (Auto) 0.3 % (0.0-1.0) Neutrophils # (Auto) 13.9 (2.1-6.9) Lymphocytes # (Auto) 0.7 (1.0-3.2) Monocytes # (Auto) 1.0 (0.2-0.8) Eosinophils # (Auto) 0.2 (0.0-0.4) Basophils # (Auto) 0.1 (0.0-0.1) Absolute Immature Granulocyte (auto 0.12 x10e3/uL (0-0.1) Lab results reviewed: Yes Imaging Imaging results reviewed: Yes Impressions left foot IMPRESSION: Diffuse soft tissue swelling, especially in the hindfoot and ankle area. Large soft tissue defect is seen in the lateral aspect of the hindfoot with underlying erosive changes of the base of the fifth metatarsal and lateral tarsal bones. Signed by: Dr. Ross Daley MD on 11/09/2019 6:47 PM Dictated By: ROSS DALEY MD 46 Transcribed By: INDU on 11/09/191846 ANKLE 3+ VIEWS LEFT - 3 views HISTORY: Pain COMPARISON: None available. FINDINGS: See impression. IMPRESSION: No definite evidence of acute displaced fracture. Subtalar and tarsometatarsal joints are obscured, consistent with Charcot arthropathy. Evaluation for underlying small erosions in these areas is limited due to deformities, however erosions along the lateral aspect of the tarsal bones are suspected. Diffuse soft tissue swelling. Signed by: Dr. Ross Daley MD on 11/09/2019 6:43 PM Dictated By: ROSS DALEY MD 42 Transcribed By: INDU on 11/09/191842 cxr IMPRESSION: Limited as above. Enlarged cardiomediastinal silhouette and central vascular congestion, accentuated by low lung volumes. Left mid to lower lung field linear opacities, unchanged from prior exam, likely scarring. Signed by: Dr. Ross Daley MD on 11/09/2019 6:49 PM Assessment & Plan Assessment & Plan Problems: (1) Cellulitis of left foot (2) Diabetic ulcer of foot associated with diabetes mellitus due to underlying condition, with fat layer exposed (3) Sepsis (4) Hypokalemia Assessment & Plan suspected sepsis blood cultures lactic ordered at triage pt medicated w/ meropenem and vancomycin source left foot diabetic ulcer no SIRS criteria at this time 1710 wbs 15.97 1852 lactic 2.9 - pt given 2nd liter bolus 1941 lactic 2.5 bedside fluid reassessment done Dr Mendez spoke w/ Dr Floyd will consult Dr Mendez spoke w/ Dr Cárdenas will admit Depart Disposition: ADMITTED Last Vital Signs Vital Signs Date Time Temp Pulse Resp B/P (MAP) Pulse Ox O2 Delivery O2 Flow Rate FiO2 11/09/19 19:04 85 18 127/65 100 11/09/19 17:46 86 18 143/66 100 11/09/19 17:09 99.6 89 20 150/68 99 Home Meds Reported Medications [Invokana] No Conflict Check, 100 MG PO ACL 06/23/17 Doxycycline Hyclate (DOXYCYCLINE HYCLATE) 100 Mg Capsule, 100 MG PO BID, CAP 06/23/17 Ciprofloxacin Hcl (CIPRO) 500 Mg Tablet, 500 MG PO Q12H, #30 TAB 06/23/17 Potassium Gluconate (POTASSIUM) 99 Mg Tablet, 99 MG PO DAILY 09/23/16 Vits W-Ca,Fe,Fa(<1MG) ( FORMULA) 1 Each Tablet, PO DAILY 09/23/16 Metformin Hcl (METFORMIN HCL) 500 Mg Tablet, 1000 MG PO BID, #60 TAB 09/23/16 Zolpidem Tartrate (AMBIEN) 10 Mg Tablet, 10 MG PO HS PRN for INSOMNIA, #30 TAB 09/23/16 Diazepam (DIAZEPAM) 5 Mg Tablet, 10 MG PO BID, #30 TAB 09/23/16 Hydrocodone Bit/Acetaminophen (HYDROCODON-ACETAMINOPHN 10-325) 1 Each Tablet, 10-325 PO QID PRN for PAIN 09/23/16 Carisoprodol (SOMA) 350 Mg Tablet, 350 MG PO Q6H, TAB 09/23/16 Carbamazepine (CARBAMAZEPINE) 200 Mg Tablet, 400 MG PO BID, #30 TAB 09/23/16 Glipizide (GLIPIZIDE ER) 5 Mg Tab.er.24, 10 MG PO ACS 09/23/16 Atorvastatin Calcium (ATORVASTATIN CALCIUM) 20 Mg Tablet, 20 MG PO HS, #30 TAB 09/23/16 Furosemide (FUROSEMIDE) 40 Mg Tablet, 40 MG PO Daily, #30 TAB 09/23/16 Losartan Potassium (LOSARTAN POTASSIUM) 100 Mg Tablet, 50 MG PO DAILY for HIGH BLOOD PRESSURE, TAB 09/23/16 Promethazine Hcl (PROMETHAZINE HCL) 12.5 Mg Tablet, 12.5 MG PO PRN PRN for NAUSEA 09/23/16 DANDRE MENDOZA [employer] November 09, 2019 17:16
--- OUTSIDE RECORDS SUMMARY | 2019-11-09 19:06 | XMS REPORT | Continuity of Care Document ---
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 3. Mild paranasal sinusitis. 06/10/2014 [facility] [place] Carotid artery Doppler bilat US Exam: Bilateral [...] Provider ADM Date DC Date Status Source [facility] [place] [facility] [id number] Tuesday03/25/2014 03/26/2014 ERIC Magana [facility] - [place] [facility] [id number] 06 [place] Tuesday04/12/2014 04/13/2014 [facility] [place] [facility] [id number] [place] 08/25/2016 08/26/2016 [facility] - [place] [facility] [id number] 08 [place] 09/03/2016 09/04/2016 [facility] [place] Procedures No Data Provided for This Section Assessment and Plan No Data Provided for This Section Plan of Care No Data Provided for This Section Social History Social History Date Source No data available for this section 09/04/2016 [facility] [place] No data available for this section 08/26/2016 [facility] Family History No Data Provided for This Section Advance Directives No Data Provided for This Section Functional Status No Data Provided for This Section
--- OUTSIDE RECORDS SUMMARY | 2019-11-09 19:06 | XMS REPORT ---
Author Author [facility] Organization [facility] Address [address] [place] [address] Phone Unavailable Care Team Providers Care Community Education Coordinator Name Role Phone HALIMA SOMMERS, S (NS) BARYR PCP [phone] Venita QUICK Attphys Unavailable DAHU, S JIRIES Attphys Unavailable Nunu Howell Attphys TuesdayYvonne Attphys BUD QUIROZ Admphys Unavailable DAHU, S JIRIES Admphys Unavailable Payers Payer Name Policy Type Policy Number Effective Date Expiration Date Venita alvarez [facility] [id number] 2017 00:00:00 MICHELLE [facility] Medicare A & B [id number] 2002 00:00:00 [facility] Problems Condition Name Condition Details Condition Category Status Onset Date Resolution Date Last Treatment Date Treating Clinician Comments Source Congestive heart failure CHF (congestive heart failure) Problem Active [facility] Dyspnea Dyspnea Problem Active [facility] Fever Fever Problem Active [facility] Hypertension Hypertension Problem Active [facility] Obesity Obesity Problem Active [facility] Osteomyelitis Osteomyelitis Problem Active [facility] Type 2 diabetes mellitus Type 2 diabetes mellitus Problem Active [facility] Urinary tract infection UTI (urinary tract infection) Problem Active [facility] Allergies, Adverse Reactions, Alerts Allergy Name Allergy Type Status Severity Reaction(s) Onset Date Inacti ve Date Treating Clinician Comments Source Lisinopril Allergy to Substance Active Unknown 2019-05-23 00:00:00 [facility] Albuterol Allergy to Substance Active Unknown 2019-05-23 00:00:00 [facility] Topiramate Allergy to Substance Active Moderate 2019-05-23 00:00:0 0 [facility] Medications Ordered Medication Name Filled Medication Name Start Date Stop Da te Current Medication? Ordering Clinician Indication Dosage Frequency Signature (SIG) Comments Components Source Atorvastatin Calcium 20 Mg Tablet Atorvastatin Calcium 20 Mg Tablet Yes 20 Bedtime [facility] Carbamazepine 200 Mg Tablet Carbamazepine 200 Mg Tablet Yes 400 Twice A Day [facility] Carisoprodol (Soma) 350 Mg Tablet Carisoprodol (Soma) 350 Mg Tablet Yes 350 Every 6 Hours [facility] Ciprofloxacin Hcl (Cipro) 500 Mg Tablet Ciprofloxacin Hcl (C ipro) 500 Mg Tablet Yes 500 Every 12 Hours [facility] Diazepam 5 Mg Tablet Diazepam 5 Mg Tablet Yes 10 Twice A Day [facility] Doxycycline Hyclate 100 Mg Capsule Doxycycline Hyclate 100 Mg Capsule Yes 100 Twice A Day [facility] Furosemide 40 Mg Tablet Furosemide 40 Mg Tablet Yes 40 Daily [facility] Glipizide (Glipizide Er) 5 Mg Tab.er.24 Glipizide (Glipizide Er) 5 Mg Tab.er.24 Yes 10 Before Supper [facility] Hydrocodone Bit/Acetaminophen (Hydrocodon-Acetaminophn 10-325) 1 Each Tablet Hydrocodone Bit/Acetaminophen (Hydrocodon-Acetaminophn 10-325) 1 Each Tablet Yes Four Times Daily as needed for P ain [facility] Invokana Invokana Yes 100 Before Lunch [facility] Losartan Potassium 100 Mg Tablet Losartan Potassium 100 Mg Tablet Yes 50 Daily for High Blood Pressure [facility] Metformin Hcl 500 Mg Tablet Metformin Hcl 500 Mg Tablet Yes 1000 Twice A Day [facility] Potassium Gluconate (Potassium) 99 Mg Tablet Potassium Gluconate (Potassium) 99 Mg Tablet Yes 99 Daily [facility] Vits W-Ca,Fe,Fa(<1MG) ( Formula) 1 Ea ch Tablet Vits W- Ca,Fe,Fa(<1MG) ( Formula) 1 Each Tablet Yes Daily [facility] Promethazine Hcl 12.5 Mg Tablet Promethazine Hcl 12.5 Mg Tablet Yes 12.5 As Needed as needed for Nausea [facility] Zolpidem Tartrate (Ambien) 10 Mg Tablet Zolpidem Tartrate (A mbien) 10 Mg Tablet Yes 10 Bedtime as needed for Insomnia [facility] Levocetirizine Dihydrochloride 5 Mg Tablet, 5 Mg Oral Levocetirizine Dihydrochloride 5 Mg Tablet, 5 Mg Oral 2017-06-23 00:00:00 No 5 Daily for Sinus [facility] Diazepam 5 Mg/1 Ml Vial, 5 Mg Intraven Diazepam 5 Mg/1 Ml Vial, 5 Mg Intraven 2016-09-23 00:00:00 No 5 As Needed as needed for Anxiety [facility] Procedures Procedure Date / Time Performed Performing Clinician [facility] Excision of neuroma 2019-05-31 00:00:00 DORIE MARQUEZ [facility] MRI (magnetic resonance imaging) 2019-05-30 00:00:00 MANOJ MOBLEY [facility] Computed tomography, lower extremity; with contrast aidan fields(s) 2019-05-28 00:00:00 RAIZA IBARRA S [facility] Computed tomography of chest with contrast 2019-05-23 00:00:00 H MARYBEL LUIS [facility] Encounters Start Date/Time End Date/Time [facility] ID Source 2019-05-23 18:32:00 2019-06-01 16:15:00 Discharged Inpatient 1 RAIZA IBARRA [facility] [id number] [facility] 2016-09-03 10:44:00 2016-09-03 23:59:00 Outpatient Harsh Howell [facility] [id number] [facility] Outpatient Imaging [facility] 2016-08-25 11:06:00 2016-08-25 23:59:00 [id number] 2014-04-12 11:52:00 2014-04-12 23:59:00 [id number] 2014-03-25 08:44:00 2014-03-25 23:59:00 [facility] Tuesday[facility] [id number] Results Test Description Test Time Test Comments Results Result Comments Source CHEST SINGLE (PORTABLE) 2019-11-09 18:47:00 [facility] [address] [place] [address] Patient Name: ALEXANDRE HARDY MR #: [id number] : 1955 Age/Sex: 63/F Req #: [id number] Adm Physician: Ordered by: DANDRE MENDOZA AIR QUALITY TECHNICIAN Report #: [id number] Location: ER Room/Bed: Procedure: [id number] DX/CHEST SINGLE (PORTABLE) Exam Date: 11/09/19 Exam Time: 1819 REPORT STATUS: Signed EXAMINATION: CHEST SINGLE (PORTABLE) INDICATION: ERMD ORDER [id number] 1819 Y COMPARISON: 05/24/2019 FINDINGS: AP view TUBES and LINES: None. LUNGS: Limited by low lung volumes and body habitus. Central vascular congestion. Unchanged left mid to lower lung field linear opacities, likely scarring. PLEURA: No significant pleural effusion or pneumothorax. HEART AND MEDIASTINUM: The cardiomediastinal silhouette is enlarged. BONES AND SOFT TISSUES: No acute osseous lesion. Soft tissues are unremarkable. UPPER ABDOMEN: No free air under the diaphragm. IMPRESSION: Limited as above. Enlarged cardiomediastinal silhouette and central vascular congestion, accentuated by low lung volumes. Left mid to lower lung field linear opacities, unchanged from prior exam, likely scarring. Signed by: Dr. Ross Daley MD on 11/09/2019 6:49 PM Dictated By: ROSS DALEY MD 48 Transcribed By: INDU on 11/09/191848 COPY TO: DANDRE MENDOZA AIR QUALITY TECHNICIAN FOOT LEFT COMPLETE 2019-11-09 18:43:00 [place] [address] Patient Name: ALEXANDRE HARDY MR #: [id number] : 1955 Age/Sex: 63/F Req #: [id number] Adm Physician: Ordered by: DANDRE MENDOZA AIR QUALITY TECHNICIAN Report #: [id number] Location: ER Room/Bed: Procedure: DX/FOOT LEFT COMPLETE Exam Date: 11/09/19 Exam Time: 1819 REPORT STATUS: Signed FOOT LEFT COMPLETE - 3 views HISTORY: Pain COMPARISON: 05/25/2019 FINDINGS: See impression. IMPRESSION: Diffuse soft tissue swelling, especially in the hindfoot and ankle area. Large soft tissue defect is seen in the lateral aspect of the hindfoot with underlying erosive changes of the base of the fifth metatarsal and lateral tarsal bones. Signed by: Dr. Ross Daley MD on 11/09/2019 6:47 PM Dictated By: ROSS DALEY MD 46 Transcribed By: INDU on 11/09/191846 COPY TO: DANDRE MENDOZA NP ANKLE 3+ VIEWS LEFT 2019-11-09 18:35:00 [place] [address] Patient Name: ALEXANDRE HARDY MR #: [id number] : 1955 Age/Sex: 63/F Req #: [id number] Adm Physician: Ordered by: DANDRE MENDOZA AIR QUALITY TECHNICIAN Report #: [id number] Location: ER Room/Bed: Procedure: [id number] DX/ANKLE 3+ VIEWS LEFT Exam Date: 11/09/19 Exam Time: 1819 REPORT STATUS: Signed ANKLE 3+ VIEWS LEFT - 3 views HISTORY: Pain COMPARISON: None available. FINDINGS: See impression. IMPRESSION: No definite evidence of acute displaced fracture. Subtalar and tarsometatarsal joints are obscured, consistent with Charcot arthropathy. Evaluation for underlying small erosions in these areas is limited due to deformities, however erosions along the lateral aspect of the tarsal bones are suspected. Diffuse soft tissue swelling. Signed by: Dr. Ross Daley MD on 11/09/2019 6:43 PM Dictated By: ROSS DALEY MD 42 Transcribed By: INDU on 11/09/191842 COPY TO: DANDRE MENDOZA NP Bedside Glucose 2019-06-01 16:15:00 Test Item Bedside Glucose (test code = 58601-0) 133 70-120 Meter ID: [id number] Level 2019-06-01 07:03:00* Test Item Value Reference Range Interpretation Comments Sodium Level (test code = 2951-2) 134 136-145 [facility]assium Pzzjc9478-32-96 07:03:00* Test Item Value Reference Range Interpretation Comments Potassium Level (test code = 2823-3) 3.2 3.5-5.1 [facility] AreaChloride Axxkt3599-05-55 07:03:00* Test Item Value Reference Range Interpretation Comments Chloride Level (test code = 2075-0) 104 98-107 [facility] AreaCarbon Dioxide Ytcud4592-74-60 07:03:00* Test Item Value Reference Range Interpretation Comments Carbon Dioxide Level (test code = 2028-9) 23 22-29 [facility] AreaAnion Iou5998-96-75 07:03:00* Test Item Value Reference Range Interpretation Comments Anion Gap (test code = 63923-8) 10.2 8-16 [facility] AreaBlood Urea Qtrahsmv5055-43-56 07:03:00* Test Item Value Reference Range Interpretation Comments Blood Urea Nitrogen (test code = 3094-0) 10 7-26 [facility] AreaCreatinine2019-12-06 07:03:00* Test Item Value Reference Range Interpretation Comments Creatinine (test code = 2160-0) 0.59 0.57-1.11 [facility] AreaBUN/Creatinine Btzaq6697-08-38 07:03:00* Test Item Value Reference Range Interpretation Comments BUN/Creatinine Ratio (test code = 3097-3) 17 6-25 [facility] AreaEstimat Glomerular Filtration Rate 2019-06-01 07:03:00* Test Item Value Reference Range Interpretation Comments Estimat Glomerular Filtration Rate (test code = 481620132) > 60 >60 Ranges were taken from the National Kidney Disease Education Program and the [facility] Foundation literature.Reference ranges:60 or greater: Rgwciu89-50 ( for 3 consecutive months): Chronic kidney disease 15 or less: Kidney failureCorpus Christi Medical Center Bay AreaGlucose Puvuq8666-66-12 07:03:00* Test Item Value Reference Range Interpretation Comments Glucose Level (test code = SZP5303) 148 74-118 [facility] AreaCalcium Bmhiy8819-63-69 07:03:00* Test Item Value Reference Range Interpretation Comments Calcium Level (test code = 53271-2) 8.0 8.4-10.2 [facility] AreaVancomycin Level Bjwxzy1625-26-66 06:33:00* Test Item Value Reference Range Interpretation Comments Vancomycin Level Trough (test code = 4092-3) 14.1 5.0-10.0 Results repeated and called to ABDIAS REYNOSO at 0633 on 06/01/19 by Flakito Robertson . Read back and verified.[facility] AreaWhite Blood Pmcsl0871-07-96 06:17:00* Test Item Value Reference Range Interpretation Comments White Blood Count (test code = 6690-2) 6.80 4.8-10.8 [facility] AreaRed Blood Fxivg9760-25-24 06:17:00* Test Item Value Reference Range Interpretation Comments Red Blood Count (test code = 789-8) 3.46 3.6-5.1 [facility] AreaHemoglobin2019-12-06 06:17:00* Test Item Value Reference Range Interpretation Comments Hemoglobin (test code = 95002-1) 10.8 12.0-16.0 [facility] AreaHematocrit2019-12-06 06:17:00* Test Item Value Reference Range Interpretation Comments Hematocrit (test code = 4544-3) 34.6 34.2-44.1 [facility] AreaMean Corpuscular Gsvibp2610-91-39 06:17:00* Test Item Value Reference Range Interpretation Comments Mean Corpuscular Volume (test code = 787-2) 100.0 81-99 [facility] AreaMean Corpuscular Nkpumpdxqz6186-82-36 06:17:00* Test Item Value Reference Range Interpretation Comments Mean Corpuscular Hemoglobin (test code = 785-6) 31.2 28-32 [facility] AreaMean Corpuscular Hemoglobin Concent 2019-06-01 06:17:00* Test Item Value Reference Range Interpretation Comments Mean Corpuscular Hemoglobin Concent (test code = 786-4) 31.2 31-35 [facility] AreaRed Cell Distribution Cjojz9498-82-81 06:17:00* Test Item Value Reference Range Interpretation Comments Red Cell Distribution Width (test code = 70953-7) 13.8 11.7 -14.4 [facility] AreaPlatelet Ewkcv6186-56-29 06:17:00* Test Item Value Reference Range Interpretation Comments Platelet Count (test code = 777-3) 236 140-360 [facility] AreaNeutrophils (%) (Auto)2019-06-01 06:17:00 * Test Item Value Reference Range Interpretation Comments Neutrophils (%) (Auto) (test code = 19993-9) 69.5 38.7-80.0 [facility] AreaLymphocytes (%) (Auto)2019-06-01 06:17:00 * Test Item Value Reference Range Interpretation Comments Lymphocytes (%) (Auto) (test code = 736-9) 16.8 18.0-39.1 [facility] AreaMonocytes (%) (Auto)2019-06-01 06:17:00* Test Item Value Reference Range Interpretation Comments Monocytes (%) (Auto) (test code = 5905-5) 9.6 4.4-11.3 [facility] AreaEosinophils (%) (Auto)2019-06-01 06:17:00 * Test Item Value Reference Range Interpretation Comments Eosinophils (%) (Auto) (test code = 713-8) 1.8 0.0-6.0 [facility] AreaBasophils (%) (Auto)2019-06-01 06:17:00* Test Item Value Reference Range Interpretation Comments Basophils (%) (Auto) (test code = 706-2) 0.4 0.0-1.0 [facility] AreaIM GRANULOCYTES %2019-06-01 06:17:00* Test Item Value Reference Range Interpretation Comments IM GRANULOCYTES % (test code = IM GRANULOCYTES %) 1.9 0.0- 1.0 [facility] AreaNeutrophils # (Auto)2019-06-01 06:17:00* Test Item Value Reference Range Interpretation Comments Neutrophils # (Auto) (test code = 751-8) 4.7 2.1-6.9 [facility] AreaLymphocytes # (Auto)2019-06-01 06:17:00* Test Item Value Reference Range Interpretation Comments Lymphocytes # (Auto) (test code = 66734-0) 1.1 1.0-3.2 [facility] AreaMonocytes # (Auto)2019-06-01 06:17:00* Test Item Value Reference Range Interpretation Comments Monocytes # (Auto) (test code = 742-7) 0.7 0.2-0.8 [facility] AreaEosinophils # (Auto)2019-06-01 06:17:00* Test Item Value Reference Range Interpretation Comments Eosinophils # (Auto) (test code = 711-2) 0.1 0.0-0.4 [facility] AreaBasophils # (Auto)2019-06-01 06:17:00* Test Item Value Reference Range Interpretation Comments Basophils # (Auto) (test code = 704-7) 0.0 0.0-0.1 [facility] AreaAbsolute Immature Granulocyte (auto 2019-06-01 06:17:00* Test Item Value Reference Range Interpretation Comments Absolute Immature Granulocyte (auto (anil t code = Absolute Immature Granulocyte (auto) 0.13 0-0.1 [facility] AreaClostridium Difficile Toxin A & B 2019-05-31 14:19:00* Test Item Value Reference Range Interpretation Comments Clostridium Difficile Toxin A & B (test code = 817405986) POSI TIVE NEGATIVE Results called to JOHNNY THOMPSON at 1418 on 05/31/19 by Dominique Hagan. RB OK.Resu lts called to ARMANDO LUNA in infection control at 1418 on 05/31/19 by Dominique orona.PT had 3 bm in 24 hours;no previous positiveTesting on stool aspirate spe cimens is outside mechanical shovel operator claims since specimen type not validated on this assay.[facility] AreaTotal Tsfwtdubt2711-54-73 06:14:00 * Test Item Value Reference Range Interpretation Comments Total Bilirubin (test code = 1975-2) 0.3 0.2-1.2 [facility] AreaAspartate Amino Transf (AST/SGOT) 2019-05-31 06:14:00* Test Item Value Reference Range Interpretation Comments Aspartate Amino Transf (AST/SGOT) (test code = Aspartate Amino Transf (AST/SGOT)) 22 5-34 [facility] AreaAlanine Aminotransferase (ALT/SGPT) 2019-05-31 06:14:00* Test Item Value Reference Range Interpretation Comments Alanine Aminotransferase (ALT/SGPT) (test code = 1742-6) 19 0-55 [facility] AreaTotal Njzdayz6834-69-77 06:14:00* Test Item Value Reference Range Interpretation Comments Total Protein (test code = 2885-2) 6.7 6.5-8.1 [facility] AreaAlbumin2019-12-05 06:14:00* Test Item Value Reference Range Interpretation Comments Albumin (test code = 1751-7) 2.3 3.5-5.0 [facility] AreaGlobulin2019-12-05 06:14:00* Test Item Value Reference Range Interpretation Comments Globulin (test code = 95044-9) 4.4 2.3-3.5 [facility] AreaAlbumin/Globulin Uxfgv7531-07-74 06:14:00 * Test Item Value Reference Range Interpretation Comments Albumin/Globulin Ratio (test code = 1759-0) 0.5 0.8-2.0 [facility] AreaAlkaline Hagdlshtfze2008-05-53 06:14:00* Test Item Value Reference Range Interpretation Comments Alkaline Phosphatase (test code = 6768-6) 80 40-150 [facility] AreaDifferential Total Cells Counted 2019-05-30 08:15:00* Test Item Value Reference Range Interpretation Comments Differential Total Cells Counted (test code = Jamar tial Total Cells Counted) 100 [facility] AreaNeutrophils % (Manual)2019-05-30 08:15:00 * Test Item Value Reference Range Interpretation Comments Neutrophils % (Manual) (test code = 39091-9) 72 40-74 [facility] AreaBand Neutrophils %2019-05-30 08:15:00* Test Item Value Reference Range Interpretation Comments Band Neutrophils % (test code = 764-1) 3 [facility] AreaLymphocytes % (Manual)2019-05-30 08:15:00 * Test Item Value Reference Range Interpretation Comments Lymphocytes % (Manual) (test code = 737-7) 13 19-48 [facility] AreaMonocytes % (Manual)2019-05-30 08:15:00* Test Item Value Reference Range Interpretation Comments Monocytes % (Manual) (test code = 744-3) 10 3.4-9.0 [facility] AreaEosinophils % (Manual)2019-05-30 08:15:00 * Test Item Value Reference Range Interpretation Comments Eosinophils % (Manual) (test code = 714-6) 2 0-7 [facility] AreaPlatelet Fejwfwgt1375-89-16 08:15:00* Test Item Value Reference Range Interpretation Comments Platelet Estimate (test code = 82092-8) ADEQUATE [facility] AreaPlatelet Morphology Uqfibqf7693-33-24 08:15:00* Test Item Value Reference Range Interpretation Comments Platelet Morphology Comment (test code = 52533-2) NORMAL [facility] AreaPoikilocytosis2019-12-04 08:15:00* Test Item Value Reference Range Interpretation Comments Poikilocytosis (test code = 779-9) SLIGHT [facility] AreaAnisocytosis2019-12-04 08:15:00* Test Item Value Reference Range Interpretation Comments Anisocytosis (test code = 702-1) SLIGHT [facility] AreaOvalocytes2019-12-04 08:15:00* Test Item Value Reference Range Interpretation Comments Ovalocytes (test code = 774-0) FEW [facility] AreaRed Cell Morphology Uodsxnh4748-32-08 08:15:00* Test Item Value Reference Range Interpretation Comments Red Cell Morphology Comment (test code = 6742-1) ABNORMAL [facility] AreaBlood Seidxoh0786-43-19 12:32:00* Test Item Value Reference Range Interpretation Comments Blood Culture (test code = 32992482) NO GROWTH AFTER 5 DAYS, FINAL REPORT [facility] AreaCT FOOT LEFT F8842-66-11 13:12:00 [facility] [address] [place] [address] Patient Name: ALEXANDRE HARDY MR #: [id number] : 1955 Age/Sex: 63/F Req #: [id number] Adm Physician: RAIZA IBARRA MD Ordered by: RAIZA IBARRA MD Report #: [id number] Location: [facility] Room/Bed: [facility] Procedure: [id number] C T/CT FOOT LEFT W Exam Date: [...] 1318 COPY TO: RAIZA IBARRA MD Reactive Qmmrlonhwgu2940-57-60 08:50:00* Test Item Value Reference Range Interpretation Comments Reactive Lymphocytes (test code = 07661-5) 1 [facility] AreaCreatine Kinase YP8458-90-43 18:03:00* Test Item Value Reference Range Interpretation Comments Creatine Kinase MB (test code = 63038-0) 1.60 0-5.0 [facility] AreaTroponin Z9114-41-66 18:03:00* Test Item Value Reference Range Interpretation Comments Troponin I (test code = VEP0236) 0.028 0-0.300 [facility] AreaCreatine Yzmlse8096-67-00 17:56:00* Test Item Value Reference Range Interpretation Comments Creatine Kinase (test code = 2157-6) 288 29-168 [facility] AreaTriglycerides Qoyab0795-60-47 09:45:00* Test Item Value Reference Range Interpretation Comments Triglycerides Level (test code = 2571-8) 113 0-149 [facility] AreaCholesterol Xhbnw3488-88-35 09:45:00* Test Item Value Reference Range Interpretation Comments Cholesterol Level (test code = 2093-3) 92 0-199 Less than 200 mg/dL Low Jyhk374 - 239 mg/dL Borderline Thhr123 m g/dl and greater High Risk [facility] AreaLDL Fuwmabwjurk1129-01-16 09:45:00* Test Item Value Reference Range Interpretation Comments LDL Cholesterol (test code = 2089-1) 54 60-130 [facility] AreaHDL Vmmywnklayf1509-37-01 09:45:00* Test Item Value Reference Range Interpretation Comments HDL Cholesterol (test code = 2085-9) 15 40-60 [facility] AreaCholesterol/HDL Tplja8754-44-04 09:45:00 * Test Item Value Reference Range Interpretation Comments Cholesterol/HDL Ratio (test code = 9830-1) 6.1 3.0-3.6 [facility] AreaArterial Blood kE3245-04-92 09:13:00* Test Item Value Reference Range Interpretation Comments Arterial Blood pH (test code = 2744-1) 7.46 7.31-7.41 [facility] AreaArterial Blood Partial Pressure CO2 2019-05-26 09:13:00* Test Item Value Reference Range Interpretation Comments Arterial Blood Partial Pressure CO2 (test code = 2018-8) 47 41-51 [facility] AreaArterial Blood Partial Pressure O2 2019-05-26 09:13:00* Test Item Value Reference Range Interpretation Comments Arterial Blood Partial Pressure O2 (test code = 2018-8) 91 80-105 [facility] AreaArterial Blood GPT80771-42-35 09:13:00* Test Item Value Reference Range Interpretation Comments Arterial Blood HCO3 (test code = 1960-4) 33 23-28 [facility] AreaArterial Blood Base Nbtvks5088-53-80 09:13:00* Test Item Value Reference Range Interpretation Comments Arterial Blood Base Excess (test code = 1925-7) 9.0 -2-3 [facility] AreaArterial Blood Oxygen Saturation 2019-05-26 09:13:00* Test Item Value Reference Range Interpretation Comments Arterial Blood Oxygen Saturation (test code = 2708-6) 97.0 95-98 [facility] 09:13:00* Test Item Value Reference Range Interpretation Comments FiO2 (test code = FiO2) 36 Pt on 4L [facility] Area[facility] LEFT [id number] 15:42:00 [facility] [address] [place] [address] Patient Name: ALEXANDRE HARDY MR #: [id number] : 1955 Age/Sex: 63/F Req #: [id number] Adm Physician: RAIZA IBARRA MD Ordered by: DORIE MARQUEZ DPM Report #: [id number] Location: ICU Room/Bed: ICU [facility] Procedure: [id number] DX/FOOT LEFT COMPLETE Exam Date: Exam Time: [...] ociated diffuse soft tissue swelling. Signed by: Gialnuca Hurt MD on 05/25/20 3:45 PM Dictated By: GIANLUCA HURT MD 921 Transcribed By: INDU on 05/25/191544 COPY TO: DORIE MARQUEZ DPM Magnesium Lxnmj4347-69-18 06:47:00* Test Item Value Reference Range Interpretation Comments Magnesium Level (test code = 78652-3) 1.8 1.3-2.1 [facility] SINGLE (PORTABLE)2019-05-24 13:33:00 [facility] [address] [address] Patient Name: ALEXANDRE HARDY MR #: [id number] : 1955 Age/Sex: 63/F Req #: [id number] Adm Physician: RAIZA IBARRA MD Ordered by: MARYBEL RIOJAS MD Report #: [id number] Location: ICU Room/Bed: ICU [facility] Procedure: [id number] DX/ CHEST SINGLE (PORTABLE) Exam Date: 05/24/19 [...] 9 PM Dictated By: ANTONIO SUN MD 1336 Transcribed By: INDU on 05/24/19 1339 COPY TO : MARYBEL RIOJAS MD CHEST SINGLE (PORTABLE)2019-05-24 06:32:00 [place] [address] [address] Patient Name: ALEXANDRE HARDY MR #: [id number] : 1955 Age/Sex: 63/F Req #: [id number] Adm Physician: RAIZA IBARRA MD Ordered by: NICK PERRY MD, MD Report #: [id number] Location: ICU Room/Bed: ICU 189 Procedure: [id number] DX/CHEST SINGLE (PORTABLE) Exam [...] 34 AM Dictated By: DAVID CARREON MD Transcribed By: INDU on 05/24/19633 COPY TO: NICK BARRAZA Carbamazepine (Tegretol) Idsxc6096-38-41 05:55:00* Test Item Value Reference Range Interpretation Comments Carbamazepine (Tegretol) Level (test code = 3432-2) 6.43 4. 0-12.0 [facility] CHEST [id number] 22:13:00 [facility] [address] [place] [address] Patient Name: ALEXANDRE HARDY MR #: [id number] : 1955 Age/Sex: 63/F Req #: [id number] Adm Physician: RAIZA IBARRA MD Ordered by: MARYBEL RIOJAS MD Report #: [id number] Location: ICU Room/Bed: ICU [facility] Procedure: [id number] CT/ CT CHEST W Exam Date: 05/23/19 [...] MARYBEL RIOJAS MD Influenza Virus Types A,B Fqnrlbq0018-10-81 20:31:00* Test Item Value Reference Range Interpretation Comments Influenza Virus Types A,B Antigen (test code = 23446-2) NEGATIVE NEGATIVE [facility]2019-05-23 19:28:00 [place] [address] Patient Name: ALEXANDRE HARDY MR #: [id number] : 1955 Age/Sex: 63/F Req #: [id number] Adm Physician: RAIZA IBARRA MD Ordered by: VICKY SOMMERS, NICK SOMMERS Report #: [id number] Location: [facility] Room/Bed: [place] [address] Procedure: 38 DX/CHEST SINGLE (PORTABLE) Exam Date: 05/23/19 [...] Thyroid Stimulating Hormone (TSH) (test code = 63919-3) 0.406 0.350-4.940 [facility] Natriuretic Pbnpxlj2022-34-06 18:14:00* Test Item Value Reference Range Interpretation Comments B-Type Natriuretic Peptide (test code = 01899-0) 116.4 0-100 [facility] AreaLipase2019-11-27 17:59:00* Test Item Value Reference Range Interpretation Comments Lipase (test code = 3040-3) < 4 8-78 [facility] [id number] 17:58:00* Test Item Value Reference Range Interpretation Comments Urine WBC (test code = 5821-4) 11-20 0-5 [facility] ZOA6700-85-14 17:58:00* Test Item Value Reference Range Interpretation Comments Urine RBC (test code = 36558-9) 6-10 0-5 [facility] Cajhkcwc1575-09-90 17:58:00* Test Item Value Reference Range Interpretation Comments Urine Bacteria (test code = 25065-1) MANY NONE [facility] Epithelial Bcudk0968-99-14 17:58:00 * Test Item Value Reference Range Interpretation Comments Urine Epithelial Cells (test code = 81367-9) NONE NONE [facility] Amorphous Otnxecus2838-42-58 17:58:00* Test Item Value Reference Range Interpretation Comments Urine Amorphous Sediment (test code = 8246-1) MODERATE FEW [facility] AreaL[facility] Acid Fdvre3868-74-32 17:54:00* Test Item Value Reference Range Interpretation Comments Lactic Acid Level (test code = Lactic Acid Level) 1.7 0.5- 2.0 [facility] AreaProthrombin Uuxy4274-62-86 17:49:00* Test Item Value Reference Range Interpretation Comments Prothrombin Time (test code = 5902-2) 15.5 11.9-14.5 [facility] AreaProthromb Time International Ratio 2019-05-23 17:49:00* Test Item Value Reference Range Interpretation Comments Prothromb Time International Ratio (test code = 6301-6) 1.17 Oral Anticoagulant Therapy INR Values:1. Low Intensity Therapy 1.5 - 2.02 . Moderate Intensity Therapy 2.0 - 3.03. High Intensity Therapy(1) 2.5 - 3. 54. High Intensity Therapy(2) 3.0 - 4.05. Panic Value INR > 5.0 [facility]Act[facility] Partial Thromboplast Time 2019-05-23 17:49:00* Test Item Value Reference Range Interpretation Comments Activated Partial Thromboplast Time (test code = 12437-6) 33.2 23.8-35.5 [facility] Zxzvc1184-41-44 17:46:00* Test Item Value Reference Range Interpretation Comments Urine Color (test code = 5778-6) YELLOW YELLOW [facility] Dbygoav5913-43-38 17:46:00* Test Item Value Reference Range Interpretation Comments Urine Clarity (test code = 12570-8) CLOUDY CLEAR [facility] Specific Cclrera0348-73-95 17:46:00 * Test Item Value Reference Range Interpretation Comments Urine Specific [place] (test code = 5811-5) 1.020 1.010-1.02 5 [facility] yH4912-39-03 17:46:00* Test Item Value Reference Range Interpretation Comments Urine pH (test code = 06835-3) 6 5-7 [facility] Leukocyte Jznditbo0094-18-04 17:46:00* Test Item Value Reference Range Interpretation Comments Urine Leukocyte Esterase (test code = 11504-7) NEGATIVE NEGATIV E [facility] Ynzxemj7305-82-64 17:46:00* Test Item Value Reference Range Interpretation Comments Urine Nitrite (test code = 44295-8) POSITIVE NEGATIVE [facility] Omleyew0035-51-33 17:46:00* Test Item Value Reference Range Interpretation Comments Urine Protein (test code = 16274-6) 2+ NEGATIVE [facility] Glucose (UA)2019-05-23 17:46:00* Test Item Value Reference Range Interpretation Comments Urine Glucose (UA) (test code = 14257-4) 2+ NEGATIVE [facility] Ltubmio5992-27-55 17:46:00* Test Item Value Reference Range Interpretation Comments Urine Ketones (test code = 97193-0) 1+ NEGATIVE [facility] Ttkeyeheetgy8118-62-87 17:46:00* Test Item Value Reference Range Interpretation Comments Urine Urobilinogen (test code = 59418-4) 0.2 0.2-1 [facility] Htgoyqusl8858-25-49 17:46:00* Test Item Value Reference Range Interpretation Comments Urine Bilirubin (test code = 1977-8) NEGATIVE NEGATIVE [facility] Rixsy2119-19-33 17:46:00* Test Item Value Reference Range Interpretation Comments Urine Blood (test code = 97070-5) 1+ NEGATIVE [facility] AreaMRI FOOT LEFT WOW [facility] [address] [place] [address] Patient Name: ALEXANDRE HARDY MR #: [id number] : 1955 Age/Sex: 61/F Req #: [id number] Adm Physician: RAIZA IBARRA MD Ordered by: RAIZA IBARRA MD Report #: [id number] Location: MED/SURG3 Room/Bed: [facility] Procedure: [id number] M RI/MRI FOOT LEFT WOW Exam Date: [...] By: YARI SIEGEL MD, MD on 06/28/17 0665 Transcribed By: ISSA RAN on 06/28/17 1151 COPY TO: RAIZA IBARRA MD CHEST XRAY LINE PLACEMENT [place] [address] Patient Name: ALEXANDRE HARDY MR #: [id number] : 1955 Age/Sex: 61/F Req #: [id number] Adm Physician: RAIZA IBARRA MD Ordered by: DARIUS RYAN MD Report #: [id number] Location: [facility] Room/Bed: [facility] Procedure: [id number] DX /CHEST XRAY LINE PLACEMENT Exam Date: [...] 06/26/17 1008 COPY TO: DARIUS RYAN MD FOOT LEFT COMPLETE [facility] [address] [address] Patient Name: ALEXANDRE HARDY MR #: [id number] : 1955 Age/Sex: 61/F Req #: [id number] Adm Physician: Ordered by: MEHDI PEREZ MD Report #: [id number] Location: ER Room/Bed: Procedure: [id number] DX/FOOT LEFT COMPLETE Exam Da te: 06/23/17 [...] M.D. on 06/23/2017 at 15:54 Dictated By: ANTONIO Jalloh 9073 Transcribed By: MANISH on 06/23/17 0169 COPY TO: MEHDI PEREZ MD
[2019-11-09 19:09] LABS: POTASSIUM 2.6 mmol/L (3.5-5.1)
[2019-11-09] MEDS ORDERED: POTASSIUM CHLORIDE 20 MEQ TAB CR PO STA (19:09)
[2019-11-09] MEDS ORDERED: SODIUM CHLORIDE 0.9% 1000ML 1,000 ML IV ONE (20:15)
[2019-11-09 20:30] VITALS: BP 136/55
[2019-11-09] MEDS ORDERED: DEXTROSE 50% SYRINGE 50 ML IV PRN (22:00)
[2019-11-10] VITALS (8 sets, daily range): BP systolic 119–147; BP diastolic 42–97
[2019-11-10] MEDS ORDERED: SODIUM CHLORIDE 0.9% 1000ML 1,000 ML IV ONE (01:30)
[2019-11-10] MEDS: ONDANSETRON HCL INJ 2MG/ML 2ML 2 MG/ML VIAL IV PRN ×3 (02:14→15:50)
[2019-11-10] MEDS: MORPHINE SULFATE INJ 4 MG/ML INJ 1ML IV PRN ×3 (02:14→15:50)
[2019-11-10] MEDS: INSULIN REGULAR, HUMAN 100 UNIT/1 ML 3ML VIAL SQ SCH ×4 (07:30→21:00)
[2019-11-10] MEDS: VANCOMYCIN 1GM/NS 250 ML 250 ML IV SCH ×2 (10:50→21:54)
[2019-11-10] MEDS ORDERED: HYDRALAZINE HCL 20 MG/ML VIAL IV PRN (13:45)
[2019-11-10] MEDS ORDERED: ACETAMINOPHEN 325 MG TAB PO PRN (13:45)
[2019-11-10] MEDS: PIPER-TAZ 3.375 GM 50 ML IV SCH ×2 (14:22→22:30)
[2019-11-10 16:32] LABS: COLOR,URINE YELLOW (YELLOW)
[2019-11-10 16:33] LABS: CLARITY,URINE CLEAR (CLEAR); LEUKOCYTE ESTERASE ,URINE NEGATIVE (NEGATIVE); NITRITE,URINE NEGATIVE (NEGATIVE)
[2019-11-10 16:34] LABS: BILIRUBIN,URINE SMALL (NEGATIVE); KETONES,URINE NEGATIVE (NEGATIVE); PROTEIN,URINE DIPSTICK >=300 (NEGATIVE); URINE UROBILINOGEN 1 mg/dL (0.2 - 1)
[2019-11-10 17:06] LABS: BACTERIA,URINE RARE /HPF
[2019-11-10 17:07] LABS: EPITHELIAL CELLS,URINE FEW /LPF
[2019-11-10] MEDS: ATORVASTATIN 20 MG TAB PO SCH (21:54)
--- NOTE | 2019-11-10 23:04 | Consultation ---
DATE OF CONSULTATION: Infectious Disease Consultation REASON FOR CONSULTATION: Infected foot and sepsis, present on admission. HISTORY OF PRESENT ILLNESS: This patient who is a 63-year-old white female with history of morbidly obese patient, bilateral lower extremities lymphedema, and history of Charcot joint, comes in with ulcer on her left foot, getting progressively worse. She had a bad smell to it. I was able to smell it when I walked into the emergency room. The patient who has history of diabetes mellitus, congestive heart failure, hypertension, neuropathy, hyperlipidemia, and chronic back pain. PAST SURGICAL HISTORY: Multiple wound debridements, back surgery, hernia repair, and appendectomy. SOCIAL HISTORY: There is no smoking, drug abuse, or alcohol abuse. FAMILY HISTORY: Diabetes mellitus. REVIEW OF SYSTEMS: HEENT: Negative. PULMONARY: Negative. CARDIAC: Negative. : Negative. SKIN: There are no other rashes. LABORATORY DATA: White count 13.9 and hemoglobin 11.7. Her creatinine 0.76. PHYSICAL EXAMINATION: GENERAL: Currently alert and oriented, does not seem to be in acute distress. VITAL SIGNS: Stable, currently afebrile. HEENT: Not icteric. NECK: Supple. CHEST: Clear. HEART: S1 and S2. No S3, S4, or murmurs. ABDOMEN: Soft, obese. EXTREMITIES: The foot, there is an open wound ulcer noted on her left foot at the heel. IMPRESSION: Infection of the foot, sepsis on admission, concern osteomyelitis, concern peripheral vascular disease. The patient is at risk for amputation. Discussed with the patient at length. Given vancomycin and Zosyn. Obtain blood cultures. kidney function. Please refer to my note in the chart. The patient is discussed with the ER physician and discussed . MD FARHAN Mathews/MODL /[id number]
[2019-11-11] VITALS (7 sets, daily range): BP systolic 118–149; BP diastolic 60–76
[2019-11-11] MEDS: ACETAMINOPHEN/CODEINE 300MG - 30MG TAB PO PRN (02:28)
[2019-11-11] MEDS: PIPER-TAZ 3.375 GM 50 ML IV SCH ×2 (06:35→14:38)
[2019-11-11 06:37] LABS: BASOPHILS % 0.3 % (0.0-1.0); EOSINOPHILS # (AUTO) 0.2 (0.0-0.4); EOSINOPHILS % 2.2 % (0.0-6.0); HEMATOCRIT 32.7 % (34.2-44.1); HEMOGLOBIN 9.9 g/dL (12.0-16.0); LYMPHOCYTES # (AUTO) 0.8 (1.0-3.2); LYMPHOCYTES % 8.1 % (18.0-39.1); MEAN CORPUSCULAR HEMOGLOBIN 30.5 pg (28-32); MEAN CORPUSCULAR HGB CONC 30.3 g/dL (31-35); MEAN CORPUSCULAR VOLUME 100.6 fL (81-99); MONOCYTES # (AUTO) 0.9 (0.2-0.8); MONOCYTES % 8.9 % (4.4-11.3); NEUTROPHILS # (AUTO) 7.7 (2.1-6.9); NEUTROPHILS % 79.8 % (38.7-80.0); PLATELET COUNT 301 x10e3/uL (140-360); RED BLOOD COUNT 3.25 x10e6/uL (3.6-5.1); RED CELL DISTRIBUTION WIDTH 14.3 % (11.7-14.4)
[2019-11-11 07:08] LABS: ALANINE AMINOTRANSFERASE 19 IU/L (0-55); ALBUMIN 1.5 g/dL (3.5-5.0); ALBUMIN/GLOBULIN RATIO 0.3 (0.8-2.0); ALKALINE PHOSPHATASE 96 IU/L (40-150); ANION GAP 15.3 mmol/L (8-16); BLOOD UREA NITROGEN 14 mg/dL (7-26); BUN/CREATININE RATIO 22 (6-25); CALCIUM 8.7 mg/dL (8.4-10.2); CARBON DIOXIDE 28 mmol/L (22-29); CHLORIDE 101 mmol/L (98-107); CHOL/HDL RATIO 6.4 (3.0-3.6); CHOLESTEROL 83 MD/DL (0-199); CREATININE, SERUM 0.64 mg/dL (0.57-1.11); EST GLOMERULAR FILTRATION RATE > 60 ML/MIN (60-); GLUCOSE 132 mg/dL (74-118); HDL CHOLESTEROL 13 MG/DL (40-60); LDL CHOLESTEROL 49 MG/DL (60-130); MAGNESIUM 1.8 MG/DL (1.3-2.1); POTASSIUM 3.3 mmol/L (3.5-5.1); SODIUM 141 mmol/L (136-145); TRIGLYCERIDES 105 MG/DL (0-149)
[2019-11-11] MEDS: INSULIN REGULAR, HUMAN 100 UNIT/1 ML 3ML VIAL SQ SCH ×4 (07:30→21:00)
[2019-11-11 07:35] LABS: THYROID STIMULATING HORMONE 1.277 uIU/mL (0.350-4.940)
[2019-11-11] MEDS ORDERED: FUROSEMIDE 40 MG TAB PO SCH (09:00)
[2019-11-11] MEDS: MORPHINE SULFATE INJ 4 MG/ML INJ 1ML IV PRN (09:00)
[2019-11-11] MEDS: VANCOMYCIN 1GM/NS 250 ML 250 ML IV SCH (09:18)
[2019-11-11] MEDS ORDERED: MORPHINE SULFATE INJ 4 MG/ML INJ 1ML IV PRN (10:45)
[2019-11-11] MEDS: LOSARTAN POTASSIUM 100 MG TAB PO SCH (11:38)
[2019-11-11] MEDS ORDERED: MORPHINE SULFATE 2 MG/ML SYR 1ML IV PRN (12:15)
[2019-11-11] MEDS: MORPHINE SULFATE 2 MG/ML SYR 1ML IV PRN ×2 (12:18→21:25)
--- NOTE | 2019-11-11 15:47 | Consultation ---
DATE OF CONSULTATION: 11/11/2019 ADDITIONAL REFERRING PHYSICIAN: Latanya Floyd MD HISTORY OF PRESENT ILLNESS: The patient is a 63-year-old female with history of diabetes, who has a chronic wound on her left foot, says she has had that wound for seven years. She has developed an increasing deformity of the left foot. She says she can no longer put weight on it. She has been primarily confined to an electric wheelchair, uses the leg only to transfer and pivot. She was admitted to the hospital with increased redness and swelling in that foot. PAST MEDICAL HISTORY: Significant for type 2 diabetes, hypertension, hyperlipidemia, congestive heart failure. PAST SURGICAL HISTORY: Previous surgery for back surgery, hernia repair, appendectomy. ALLERGIES: SHE HAS NO KNOWN ALLERGIES. MEDICATIONS: Listed in the chart. FAMILY HISTORY: Noncontributory. SOCIAL HISTORY: Not available. REVIEW OF SYSTEMS: As stated above. She has not had any fever. PHYSICAL EXAMINATION: GENERAL: The patient is awake and alert. EXTREMITIES: Significant findings in the lower extremity. There is edema of the extremity below the knee. There is deformity and erythema of the left foot. There is a large open wound laterally extending to the heel which was about 5 x 8 cm with some fibrinous exudate. No necrotic tissue. ASSESSMENT: A 63-year-old female with deformities of the left foot, chronic wound on the left foot and no longer able to use the foot even for transfers. At this point, the patient will best be treated with amputation of the foot. Since she really is not ambulatory and with the way her leg is with edema in the lower extremity, I think she probably would best be treated with a left above-knee amputation. This was explained to the patient. She is considering this Thank you for asking me to see Ms. Mccray. MD JOSIE Perla/STEVE /[id number]
--- NOTE | 2019-11-11 17:53 | Progress Note ---
DATE: SUBJECTIVE: Ms. Mccray is lying in bed comfortably. Discussed with surgery earlier today. REVIEW OF SYSTEMS: HEENT: Negative. PULMONARY: Negative. CARDIAC: Negative. PHYSICAL EXAMINATION: GENERAL: Currently alert, oriented, does not seem in acute distress. VITAL SIGNS: Stable, currently afebrile. LABORATORY DATA: Her blood culture is showing Staphylococcus aureus. Her wound is showing Staphylococcus aureus, sensitivity remains pending. Her white count came down to 9.6, hemoglobin 9.9. Sodium 141, potassium 3.3. IMPRESSION: 1. Sepsis, present on admission, infection in the foot. Discussed with Dr. Oneill. He is recommending eplqc-phh-igrg amputation. 2. Peripheral vascular disease. 3. Obesity. 4. Continue with vancomycin. Continue with Zosyn for the time being till we get sensitivity. 5. Obtain vancomycin trough and we will reassess in the morning. MD FARHAN Mathews/STEVE /[id number]
[2019-11-11] MEDS: FUROSEMIDE INJ 10 MG/ML 4 ML VIAL IV SCH (18:00)
--- NOTE | 2019-11-11 19:08 | Consultation ---
DATE OF CONSULTATION: Covering for Dr. Mcdonald. REASON FOR CONSULTATION: Wound, left foot. CHIEF COMPLAINT/HISTORY OF PRESENT ILLNESS: This is a pleasant 63-year-old diabetic female, who was admitted for chronic wound in the patient's left lower extremity. The patient is currently being seen by Dr. Eve Brooks in the outpatient setting. At this point in time, she states that she has had a 7-year history of a chronic ulceration. She states approximately one month ago, she fell on her foot and made it worse, started to bleed. At this point in time, has progressively worsened overtime. She states, however, started from a small ulceration 7 years ago and this has worsened overtime. She has also recommended below-knee amputation multiple times in the past, however. At this point in time, she is unclear as to whether or not there is a proper approach. At this point in time, she denies any nausea, vomiting, fever, chills, thigh pain, chest pain, calf pain, or shortness of breath. PAST MEDICAL HISTORY: Significant for: 1. Hypertension. 2. Type 2 diabetes. 3. Anxiety. 4. Chronic CHF. 5. Insomnia. 6. Morbid obesity. 7. Peripheral arterial disease. MEDICATIONS: See list. ALLERGIES: SEE LIST. SOCIAL HISTORY: The patient denies alcohol, tobacco, and IV drug use. The patient currently lives at home. FAMILY MEDICAL HISTORY: Noncontributory. REVIEW OF SYSTEMS: See admission history and physical. PHYSICAL EXAMINATION: GENERAL: The patient is alert, awake, oriented x3, currently in no acute distress. VITAL SIGNS: Temperature is 98.0, pulse 72, blood pressure is 113/72, and respiratory rate is 16. EXTREMITIES: Lower extremity physical examination; the patient has nonpalpable both dorsalis pedis and posterior tibial pulses to the right lower extremity. There is elevational pallor dependent rubor. Additionally, there is significant edema to the patient's bilateral lower extremities, which is +3 pitting edema. DERMATOLOGIC: Reveals a chronic ulceration on the lateral aspect of the left foot, measured approximately 12 cm x 14 cm. There is serous purulent drainage exuding from the wound. There is localized erythema and increased edema. The wound is basically over the sinus tarsi region lateral 5th metatarsal and lateral ankle. When palpation is performed on the dorsal aspect of the foot as well as over the lateral malleolus, serous purulent drainage exudates from the wound. Orthopedic examination reveals adductovarus rotation of the left foot and ankle. Manual muscle testing is deferred at this time. NEUROLOGIC: The patient has loss of bilaterally. DIAGNOSTIC DATA AND LABS: Sodium 141, chloride 101, BUN 14, potassium 3.3, CO2 is 2.28, creatinine is 0.64, and glucose 132. WBC is 9.68, hemoglobin 9.9, hematocrit is 32.7, and platelet count is 301. ASSESSMENT: 1. Diabetes mellitus with peripheral neuropathy. 2. Chronic wound, left lower extremity. 3. Likely osteomyelitis, left lower extremity. 4. Charcot arthropathy, left lower extremity. 5. Cellulitis, left. 6. Lymphedema. RECOMMENDATIONS: 1. At this point in time, Dr. Oneill has been consulted for below-knee amputation. Additionally, in regards to the wound, we will start with local wound care consisting of Betadine wet-to-dry on a twice daily basis. 2. MRI with and without contrast to be ordered for evaluation of possible osteomyelitis to the left foot and ankle. 3. examination was performed, which reveals aggressive changes to the ankle joint and foot. 4. Charcot joint is noted also. 5. At this point in time, offloading is recommended. Dr. Brooks will follow this patient tomorrow, as she is seeing the patient in the outpatient setting. 6. Agree with vancomycin and Zosyn per Infectious Disease, Dr. Floyd. Dr. Cárdenas, thank you for this consultation. We will be happy to follow this patient with you. Misael LUCA Ley MM/STEVE /[id number]
[2019-11-11] MEDS ORDERED: POTASSIUM CHLORIDE 20 MEQ TAB CR PO NR (19:15)
[2019-11-11] MEDS: ATORVASTATIN 20 MG TAB PO SCH (21:00)
--- NOTE | 2019-11-11 23:03 | Consultation ---
DATE OF CONSULTATION: 11/11/2019 Cardiology Consultation REQUESTING PHYSICIAN: Capo Cárdenas MD. REASON FOR CONSULTATION: Peripheral arterial disease. HISTORY OF PRESENT ILLNESS: This is a 63-year-old woman with diabetes mellitus, hypertension, hyperlipidemia, and congestive heart failure, who presents with complaints of progressively worsening left foot ulcer. The patient is an extremely poor historian and was not able to provide much in the way of significant detail, but reports this wound has been present for the last 7 years. On evaluation in the ER, she was found to have sepsis due to cellulitis and diabetic ulcer of the left foot. Bilateral lower extremity arterial doppler was obtained which suggested presence of peripheral arterial disease. Cardiology is therefore consulted for further evaluation. The patient denies chest pain or palpitations but she does endorse shortness of breath. No further details could be obtained from the patient. REVIEW OF SYSTEMS: Negative except as per HPI. PAST MEDICAL HISTORY: 1. Hypertension. 2. Hyperlipidemia. 3. Diabetes mellitus. 4. Congestive heart failure. 5. Chronic lymphedema. 6. History of TB meningitis. 7. Morbid obesity. 8. Obstructive sleep apnea. PAST SURGICAL HISTORY: 1. Knee surgery. 2. Lumbar spine surgery. 3. Hernia surgery. 4. Appendectomy. ALLERGIES: PLEASE SEE EMR. MEDICATIONS: Please see medication list. SOCIAL HISTORY: Denies tobacco, alcohol, or illicit drugs. FAMILY HISTORY: Pertinent for parents with congestive heart failure. PHYSICAL EXAMINATION: VITAL SIGNS: Temperature 97.7 degrees, pulse 77, respiratory rate 18, blood pressure 149/67, and oxygen saturation 94% on 2 L nasal cannula. GENERAL: Morbidly obese woman, awake and alert, in no acute distress. HEENT: Normocephalic and atraumatic. Pupils are equal. No scleral icterus. NECK: Supple. No thyromegaly or cervical lymphadenopathy. No carotid bruits. LUNGS: Clear to auscultation bilaterally. No wheezes or crackles. CARDIOVASCULAR: Normal rate, regular rhythm. No murmur. Normal S1 and S2. ABDOMEN: Soft and nontender. EXTREMITIES: Lymphedema noted bilaterally with ulcer at the left heel. LABORATORY DATA: WBC 9.68, hemoglobin 9.9, hematocrit 32.7, and platelets 301. Sodium 141, potassium 3.3, chloride 101 of CO2 of 28, BUN 14, and creatinine 0.64. IMPRESSION: 1. Cellulitis and diabetic ulcer of the left foot with concern for osteomyelitis. 2. Peripheral arterial disease suggested by bilateral lower extremity arterial Doppler. 3. Hypertension. 4. Hyperlipidemia. 5. Diabetes mellitus. 6. Congestive heart failure. RECOMMENDATIONS: Antibiotics per Infectious Disease. Continue wound care, gentle diuretics. The patient's echocardiogram revealed normal LVEF with mild concentric LVH and pseudonormal LV filling pattern. Start gentle diuretics IV given her complaint of dyspnea. Continue current cardiac medications, otherwise we would resume home losartan. We will evaluate, the patient is candidate for peripheral angiogram. Thank you for this consult. We will continue to follow. Cici Smalls MD ABS/MODL /[id number]
[2019-11-12] VITALS (8 sets, daily range): BP systolic 109–148; BP diastolic 51–67
[2019-11-12] MEDS: VANCOMYCIN 1GM/NS 250 ML 250 ML IV SCH (02:05)
[2019-11-12] MEDS: PIPER-TAZ 3.375 GM 50 ML IV SCH ×3 (02:05→22:54)
[2019-11-12] MEDS: MORPHINE SULFATE 2 MG/ML SYR 1ML IV PRN ×5 (02:10→23:15)
--- NOTE | 2019-11-12 02:39 | Diagnostic Imaging Report ---
EXAMINATION: CHEST XRAY LINE PLACEMENT INDICATION: ^verify line placement ^[id number] ^[id number] COMPARISON: 11/09/2019 FINDINGS: AP view TUBES and LINES: Interval placement of a left upper extremity PICC. The distal portion of the PICC is curved in the left upper chest, likely in the brachiocephalic vein. LUNGS: Bibasilar atelectasis. Fullness of the pulmonary vasculature. PLEURA: No pleural effusion or pneumothorax. HEART AND MEDIASTINUM: The cardiomediastinal silhouette is mildly enlarged. BONES AND SOFT TISSUES: No acute osseous lesion. Soft tissues are unremarkable. UPPER ABDOMEN: No free air under the diaphragm. IMPRESSION: The distal aspect of the left upper extremity PICC is curved in the left upper chest, likely in the brachiocephalic vein. Repositioning is recommended. Unchanged central pulmonary venous congestion with bibasilar atelectasis. Signed by: Tom Upton MD on 11/12/2019 2:36 AM
[2019-11-12 06:35] LABS: BASOPHILS % 0.4 % (0.0-1.0); EOSINOPHILS # (AUTO) 0.2 (0.0-0.4); EOSINOPHILS % 1.9 % (0.0-6.0); HEMATOCRIT 34.3 % (34.2-44.1); HEMOGLOBIN 10.3 g/dL (12.0-16.0); LYMPHOCYTES # (AUTO) 0.9 (1.0-3.2); LYMPHOCYTES % 8.5 % (18.0-39.1); MEAN CORPUSCULAR HEMOGLOBIN 30.2 pg (28-32); MEAN CORPUSCULAR VOLUME 100.6 fL (81-99); MONOCYTES # (AUTO) 1.1 (0.2-0.8); MONOCYTES % 10.2 % (4.4-11.3); NEUTROPHILS # (AUTO) 8.6 (2.1-6.9); NEUTROPHILS % 78.3 % (38.7-80.0); PLATELET COUNT 307 x10e3/uL (140-360); RED BLOOD COUNT 3.41 x10e6/uL (3.6-5.1); RED CELL DISTRIBUTION WIDTH 14.3 % (11.7-14.4)
[2019-11-12 06:58] LABS: ALANINE AMINOTRANSFERASE 23 IU/L (0-55); ALBUMIN 1.5 g/dL (3.5-5.0); ALBUMIN/GLOBULIN RATIO 0.3 (0.8-2.0); ALKALINE PHOSPHATASE 112 IU/L (40-150); ANION GAP 18.8 mmol/L (8-16); BLOOD UREA NITROGEN 10 mg/dL (7-26); BUN/CREATININE RATIO 15 (6-25); CARBON DIOXIDE 29 mmol/L (22-29); CHLORIDE 97 mmol/L (98-107); CREATININE, SERUM 0.67 mg/dL (0.57-1.11); EST GLOMERULAR FILTRATION RATE > 60 ML/MIN (60-); GLUCOSE 148 mg/dL (74-118); SODIUM 142 mmol/L (136-145)
[2019-11-12 07:00] LABS: POTASSIUM 2.8 mmol/L (3.5-5.1)
[2019-11-12] MEDS: INSULIN REGULAR, HUMAN 100 UNIT/1 ML 3ML VIAL SQ SCH ×4 (07:30→22:53)
[2019-11-12] MEDS ORDERED: POTASSIUM CHLORIDE 20 MEQ TAB CR PO ONE (07:55)
[2019-11-12] MEDS: LOSARTAN POTASSIUM 100 MG TAB PO SCH (09:16)
[2019-11-12] MEDS: POTASSIUM CHLORIDE 20 MEQ TAB CR PO SCH (09:16)
[2019-11-12] MEDS: FUROSEMIDE INJ 10 MG/ML 4 ML VIAL IV SCH (09:16)
[2019-11-12] MEDS: DOCUSATE SODIUM 100 MG CAP PO SCH ×2 (10:45→17:00)
[2019-11-12] MEDS ORDERED: BISACODYL 5 MG TAB EC PO SCH (10:50)
[2019-11-12] MEDS ORDERED: PIPER-TAZ 3.375 GM 50 ML IV SCH (11:00)
--- NOTE | 2019-11-12 12:15 | Progress Note ---
DATE: SUBJECTIVE: The patient is seen and evaluated. Available labs and notes reviewed. Discussed with the nurse in her room. REVIEW OF SYSTEMS: The patient has no complaint of nausea, vomiting, fever, chills, chest pain, shortness of breath, rash, or diarrhea. PHYSICAL EXAMINATION: VITAL SIGNS: Temperature 98.7, pulse is 81, respirations 17, and blood pressure 125/56. GENERAL: Alert and oriented, in no acute distress. CV: S1 and S2. CHEST: Equal expansion. Clear to auscultation. No acute distress. ABDOMEN: Soft and nontender. No distention. HEENT: Moist. No pallor. No JVD. EXTREMITIES: Bilateral lower extremity cellulitis, left worse than right with more swollen than the right. Also, left ankle area lateral side of her foot wound, on local care. MEDICATIONS: Medication list reviewed and as far as Infectious Disease point of view, the patient is on vancomycin q.12 hours at 1 g. LABORATORY STUDIES: White count 11.01, hemoglobin 10.3, and platelets 307. Sodium 142, potassium 2.8, and creatinine 0.67. Serology; coronavirus 11/09/2019, not detected. MICROBIOLOGY: Blood culture MRSA on 11/08, recheck blood culture pending. Left foot culture showed MRSA and strep. Urine culture showed Streptococcus and yeast. RADIOLOGY STUDIES: The patient is status post IV access line placement, PICC line to the left upper extremity on 11/12/2019. ASSESSMENT AND PLAN: 1. Methicillin-resistant Staphylococcus aureus bacteremia. 2. Urine culture with fungus. 3. Cellulitis of bilateral lower extremities. 4. Obesity. 5. Debility. 6. Wounds of lower extremity. Culture showing methicillin-resistant Staphylococcus aureus and strep. 7. Discussed with Dr. Floyd. We will add Diflucan and change vancomycin to 1.5 g IV piggyback b.i.d. We will follow vancomycin trough. Follow up with the labs. Continue with wound care. Continue with PT/OT. I discussed with the nurse. Further management of this patient is based on daily findings on laboratory and physical examination. Please refer to chart for more information. Dictated by Ryland Tatum PA-C (Al) Latanya Floyd MD /MODL /[id number]
[2019-11-12] MEDS: FLUCONAZOLE 400MG/200ML BAG 200 ML IV SCH (13:30)
[2019-11-12] MEDS ORDERED: VANCOMYCIN 1GM/NS 250 ML 250 ML IV SCH ×2 (14:00→17:00)
--- NOTE | 2019-11-12 14:25 | Progress Note ---
DATE: 11/12/2019 SUBJECTIVE: The patient was seen at bedside today, in mild distress. She states that she is having significant amount of pain. Clinically, no changes since previous examination with Dr. Misael Ley. ASSESSMENT: 1. Diabetes mellitus with peripheral neuropathy. 2. Chronic left foot wound bacteremia. 3. Chronic osteomyelitis, left foot. 4. Charcot arthropathy, left foot, cellulitis. 5. Lymphedema. RECOMMENDATIONS: From podiatry standpoint, I agree with Dr. Oneill's recommendation for a limb amputation, about knee versus below knee. Regardless, at this time, continue with the Betadine wet-to-dry dressing daily for nursing. Podiatry will continue to follow with conservative care. I have spent about 15 minutes educating the patient on the facts that the patient is at high risk of mortality due to the bacteremia and the chronic osteomyelitis in the left foot, and I highly recommend her proceeding with surgery with Dr. Oneill. Thank you again for including me in the care of this patient. Eve Brooks DPM [facility]/MODL /[id number]
[2019-11-12] MEDS ORDERED: LORAZEPAM INJ 2 MG/ML VIAL IV SCH (14:50)
[2019-11-12] MEDS: VANCOMYCIN 300 ML IV SCH (15:50)
[2019-11-12] MEDS: ATORVASTATIN 20 MG TAB PO SCH ×2 (21:00→22:54)
[2019-11-13] VITALS (8 sets, daily range): BP systolic 130–150; BP diastolic 63–74
[2019-11-13] MEDS: VANCOMYCIN 300 ML IV SCH ×2 (02:44→15:00)
[2019-11-13] MEDS: MORPHINE SULFATE 2 MG/ML SYR 1ML IV PRN ×3 (04:45→18:00)
[2019-11-13] MEDS: PIPER-TAZ 3.375 GM 50 ML IV SCH ×3 (05:43→20:00)
[2019-11-13 06:05] LABS: BASOPHILS % 0.3 % (0.0-1.0); EOSINOPHILS # (AUTO) 0.1 (0.0-0.4); EOSINOPHILS % 0.7 % (0.0-6.0); HEMOGLOBIN 10.2 g/dL (12.0-16.0); LYMPHOCYTES # (AUTO) 0.9 (1.0-3.2); LYMPHOCYTES % 9.1 % (18.0-39.1); MEAN CORPUSCULAR HEMOGLOBIN 29.8 pg (28-32); MEAN CORPUSCULAR VOLUME 99.4 fL (81-99); MONOCYTES % 9.8 % (4.4-11.3); NEUTROPHILS # (AUTO) 7.7 (2.1-6.9); NEUTROPHILS % 79.1 % (38.7-80.0); PLATELET COUNT 347 x10e3/uL (140-360); RED BLOOD COUNT 3.42 x10e6/uL (3.6-5.1); RED CELL DISTRIBUTION WIDTH 14.1 % (11.7-14.4)
[2019-11-13 06:48] LABS: ALANINE AMINOTRANSFERASE 17 IU/L (0-55); ALBUMIN 1.5 g/dL (3.5-5.0); ALBUMIN/GLOBULIN RATIO 0.3 (0.8-2.0); ALKALINE PHOSPHATASE 94 IU/L (40-150); BLOOD UREA NITROGEN 8 mg/dL (7-26); BUN/CREATININE RATIO 11 (6-25); CALCIUM 8.8 mg/dL (8.4-10.2); CARBON DIOXIDE 29 mmol/L (22-29); CHLORIDE 96 mmol/L (98-107); CREATININE, SERUM 0.76 mg/dL (0.57-1.11); EST GLOMERULAR FILTRATION RATE > 60 ML/MIN (60-); GLUCOSE 180 mg/dL (74-118); MAGNESIUM 1.2 MG/DL (1.3-2.1); SODIUM 144 mmol/L (136-145)
[2019-11-13] MEDS: INSULIN REGULAR, HUMAN 100 UNIT/1 ML 3ML VIAL SQ SCH ×4 (07:30→20:23)
--- NOTE | 2019-11-13 08:33 | Diagnostic Imaging Report ---
TECHNIQUE: Magnetic resonance imaging of the LEFT foot was performed WITHOUT injected contrast. HISTORY: Pain COMPARISON: None available. DISCUSSION: Soft tissue ulceration of the lateral ankle with sinus tract extending to bone. Extensive osteomyelitis of the hindfoot involving the calcaneus, talus, cuboid, lateral navicular, and base of the fifth metatarsal. Probable additional osteomyelitis of the distal tibia and fibula. Probable multifocal septic arthritis and soft tissue abscess, however not well delineated due to lack of intravenous contrast. Diffuse atrophy of the musculature. IMPRESSION: Soft tissue ulceration of the lateral hindfoot with sinus tract and extensive osteomyelitis involving the hindfoot, base of the fifth metatarsal, and probable distal tibia and fibula. Multifocal septic arthritis with probable abscess, however poor delineation due to lack of contrast. Signed by: Dr. Jerry Coyle M.D. on 11/13/2019 8:30 AM
[2019-11-13] MEDS: DOCUSATE SODIUM 100 MG CAP PO SCH ×2 (09:00→17:00)
[2019-11-13] MEDS: FUROSEMIDE INJ 10 MG/ML 4 ML VIAL IV SCH (09:10)
[2019-11-13] MEDS: LOSARTAN POTASSIUM 100 MG TAB PO SCH (09:11)
[2019-11-13] MEDS: POTASSIUM CHLORIDE 20 MEQ TAB CR PO SCH ×2 (09:11→17:38)
[2019-11-13] MEDS: BALSAM PERU/CASTOR OIL 60 GM OINT...G. TP SCH (10:28)
[2019-11-13] MEDS ORDERED: POTASSIUM CHLORIDE 20 MEQ TAB CR PO ONE (10:50)
--- NOTE | 2019-11-13 11:34 | Progress Note ---
DATE: SUBJECTIVE: The patient is seen and evaluated. Available labs and notes reviewed. Discussed with staff. REVIEW OF SYSTEMS: States that she is doing better, however, complains of general weakness. No nausea, vomiting, fever, chills, chest pain, shortness of breath, headache, or rash. PHYSICAL EXAMINATION: VITAL SIGNS: Temperature 97.9, pulse is 75, respiration 20, and blood pressure 130/65. GENERAL: Alert and oriented, seems to be weak, but states that she is doing better overall. CV: S1 and S2. CHEST: Equal expansion. Decreased breath sounds. No acute distress. ABDOMEN: Soft, morbidly obese. No tenderness. Positive bowel sounds. HEENT: Moist. No pallor. No JVD. EXTREMITIES: Cellulitis of left lower extremity with edema. Wound dressed, on local care. MEDICATIONS: Medication list reviewed and as far as Infectious Disease point of view, the patient is on Zosyn, vancomycin, and Diflucan. LABORATORY STUDIES: White count 9.69, improved from 11.01, hemoglobin 10.2, and platelet 347. Sodium 144, potassium 3, and creatinine 0.76. Toxicology; vancomycin trough is 12.9 on 11/12/2019. Serology; coronavirus PCR not detected on 11/08. MICROBIOLOGY: Recheck blood culture from 11/10 is negative. Blood culture on 11/09/2019 was positive for MRSA. RADIOLOGY STUDIES: MRI showed multifocal septic arthritis with probable abscess. Also shows soft tissue ulceration of the lateral hindfoot with sinus tracking extension and extensive osteomyelitis involving the hindfoot base of the 5th metatarsal and probable distal tibial and fibula. ASSESSMENT AND PLAN: 1. Multifocal septic arthritis. 2. Possible abscess, left foot. 3. Osteomyelitis of left foot and possibility of osteomyelitis of tibia and fibula. 4. Methicillin-resistant Staphylococcus aureus bacteremia. 5. Urinary tract infection with fungus. 6. Antibiotic as mentioned above, vancomycin was increased and Diflucan was started yesterday. Continue vancomycin IV, Zosyn, and Diflucan. The patient is seen by General Surgery pending the patient's decision for amputation, most likely end up with the BKA, pending for the patient's decision. Overall guarded prognosis and very ill. Discussed with Dr. Floyd in details. Please refer to chart for more information. Dictated by Ryland Tatum PA-C (Al) MD SALOME Mathews/STEVE /[id number]
[2019-11-13] MEDS: FLUCONAZOLE 400MG/200ML BAG 200 ML IV SCH (11:49)
[2019-11-13] MEDS ORDERED: MIDAZOLAM HCL 2 MG/2 ML VIAL ONE (12:58)
[2019-11-13] MEDS ORDERED: HEPARIN SOD (PORCINE) 1000 UNIT/ML 30ML ONE (12:58)
[2019-11-13] MEDS ORDERED: FENTANYL CITRATE/PF 100MCG/2 ML INJ ONE (12:59)
[2019-11-13] MEDS ORDERED: NITROGLYCERIN/D5W 200 MCG/ML 250 ML ONE (12:59)
[2019-11-13] MEDS ORDERED: HEPARIN SOD/SOD CHLORIDE 2,000 ML ONE (12:59)
[2019-11-13] MEDS ORDERED: IOPAMIDOL 300MG/ML 100 ML INFUS..BTL IV ONE (12:59)
[2019-11-13] MEDS ORDERED: LIDOCAINE HCL 2% LOCAL 20 ML VIAL ONE ×2 (12:59→13:11)
[2019-11-13] MEDS ORDERED: DIPHENHYDRAMINE HCL INJ 50 MG/ML VIAL ONE (13:40)
[2019-11-13] MEDS: ATORVASTATIN 20 MG TAB PO SCH (20:23)
[2019-11-13] MEDS: ACETAMINOPHEN/CODEINE 300MG - 30MG TAB PO PRN (22:07)
[2019-11-14] VITALS (7 sets, daily range): BP systolic 120–145; BP diastolic 57–72
[2019-11-14] MEDS: MORPHINE SULFATE 2 MG/ML SYR 1ML IV PRN (01:19)
[2019-11-14] MEDS: PIPER-TAZ 3.375 GM 50 ML IV SCH ×3 (03:20→22:00)
[2019-11-14] MEDS: VANCOMYCIN 1GM/NS 250 ML 250 ML IV SCH ×2 (03:47→16:10)
--- NOTE | 2019-11-14 04:07 | Progress Note ---
DATE: 11/13/2019 Cardiology Progress Note SUBJECTIVE: Peripheral angiography done today showed no significant PAD. OBJECTIVE: VITAL SIGNS: Temperature afebrile, pulse 74, respiratory rate 18, blood pressure 124/72, and saturating 100% on 2 L nasal cannula. GENERAL: Middle-aged female in no acute distress. CARDIOVASCULAR: Regular rate and rhythm. No murmurs, rubs, or gallops. LUNGS: Clear to auscultation bilaterally. ABDOMEN: Soft, nontender, and nondistended. PSYCH: Alert and oriented to person, place, and time. Normal affect. INPATIENT MEDICATIONS: Reviewed. LABORATORY DATA: Reviewed. TELEMETRY DATA: Reviewed. ASSESSMENT: 1. Cellulitis, diabetic foot ulcer of the left foot. 2. Hypertension. 3. Hyperlipidemia. 4. Diabetes. 5. History of congestive heart failure. RECOMMENDATIONS: Had peripheral angiography done today and has a three-vessel runoff in the left foot. No significant peripheral arterial disease. No intervention needed. Continue CHF medications otherwise. We will continue to follow. MD JASPER Nolen/NEELIMAL /[id number]
[2019-11-14] MEDS: ACETAMINOPHEN/CODEINE 300MG - 30MG TAB PO PRN ×2 (05:22→11:19)
[2019-11-14 06:18] LABS: BASOPHILS % 0.3 % (0.0-1.0); EOSINOPHILS # (AUTO) 0.1 (0.0-0.4); EOSINOPHILS % 1.4 % (0.0-6.0); HEMATOCRIT 30.6 % (34.2-44.1); HEMOGLOBIN 9.3 g/dL (12.0-16.0); LYMPHOCYTES # (AUTO) 1.1 (1.0-3.2); LYMPHOCYTES % 12.9 % (18.0-39.1); MEAN CORPUSCULAR HEMOGLOBIN 29.7 pg (28-32); MEAN CORPUSCULAR HGB CONC 30.4 g/dL (31-35); MEAN CORPUSCULAR VOLUME 97.8 fL (81-99); MONOCYTES % 11.3 % (4.4-11.3); NEUTROPHILS # (AUTO) 6.4 (2.1-6.9); NEUTROPHILS % 73.3 % (38.7-80.0); PLATELET COUNT 349 x10e3/uL (140-360); RED BLOOD COUNT 3.13 x10e6/uL (3.6-5.1); RED CELL DISTRIBUTION WIDTH 14.5 % (11.7-14.4)
[2019-11-14 06:38] LABS: ALANINE AMINOTRANSFERASE 12 IU/L (0-55); ALBUMIN 1.4 g/dL (3.5-5.0); ALBUMIN/GLOBULIN RATIO 0.3 (0.8-2.0); ALKALINE PHOSPHATASE 76 IU/L (40-150); ANION GAP 17.4 mmol/L (8-16); BLOOD UREA NITROGEN 7 mg/dL (7-26); BUN/CREATININE RATIO 9 (6-25); CALCIUM 8.1 mg/dL (8.4-10.2); CARBON DIOXIDE 34 mmol/L (22-29); CHLORIDE 95 mmol/L (98-107); EST GLOMERULAR FILTRATION RATE > 60 ML/MIN (60-); GLUCOSE 152 mg/dL (74-118); POTASSIUM 3.4 mmol/L (3.5-5.1); SODIUM 143 mmol/L (136-145)
[2019-11-14] MEDS: INSULIN REGULAR, HUMAN 100 UNIT/1 ML 3ML VIAL SQ SCH ×4 (07:30→21:00)
[2019-11-14] MEDS: DOCUSATE SODIUM 100 MG CAP PO SCH ×2 (07:33→17:00)
[2019-11-14] MEDS: FUROSEMIDE INJ 10 MG/ML 4 ML VIAL IV SCH (07:33)
[2019-11-14] MEDS: LOSARTAN POTASSIUM 100 MG TAB PO SCH (07:34)
[2019-11-14] MEDS: BALSAM PERU/CASTOR OIL 60 GM OINT...G. TP SCH (07:34)
[2019-11-14] MEDS: POTASSIUM CHLORIDE 20 MEQ TAB CR PO SCH ×2 (07:34→17:45)
[2019-11-14] MEDS: FLUCONAZOLE 400MG/200ML BAG 200 ML IV SCH (13:15)
[2019-11-14] MEDS ORDERED: VANCOMYCIN 1GM/NS 250 ML 250 ML IV SCH (14:00)
[2019-11-14] MEDS: HYDROCODONE/APAP 10MG-325MG TAB PO PRN (15:01)
--- NOTE | 2019-11-14 17:30 | Progress Note ---
DATE: SUBJECTIVE: The patient was seen and evaluated. Available labs and notes reviewed. Discussed with Dr. Floyd. Physical therapy currently in the room, trying to get the patient up and sitting at the edge of the bed. REVIEW OF SYSTEMS: The patient remains weak with general pain. No nausea, no vomiting, no fever, no chills. No chest pain, shortness of breath. OBJECTIVE: VITAL SIGNS: Temperature 97.4, pulse is 72, respirations 18, and blood pressure 145/58. GENERAL: Alert and oriented, no acute distress. CV: S1 and S2. CHEST: Equal expansion, clear to auscultation. No acute distress. ABDOMEN: Soft and nontender. No distention. Morbidly obese. HEENT: Moist. No pallor. No JVD. EXTREMITIES: Left lower extremity cellulitis, edema and some pain and discomfort. The left foot wound is dressed with CLAY wrap. MEDICATIONS: Medication list reviewed. As far as Infectious Disease point of view, the patient is on vancomycin IV q.12 hours and Zosyn q.8., and also on Diflucan IV daily. LABORATORY STUDIES: White blood cells of 8.78, hemoglobin 9.3, and platelet 349. Sodium 143, potassium 3.4, and creatinine 0.8. Vancomycin trough 17.9 today. No new serology studies available. MICROBIOLOGY: Recheck blood cultures are negative on 11/11/19. RADIOLOGY STUDIES: The patient had an angiogram done yesterday with a runoff showing no evidence of significant arterial stenosis on the right, however, had possible evidence of significant arterial stenosis on the left and popliteal, FITNESS SALES CONSULTANT, and JENNIFER. The patient also had echo done on 11/09, showing ejection fraction of 50% to 55% on the left ventricle. ASSESSMENT AND PLAN: 1. Multifocal septic arthritis. 2. Osteomyelitis. 3. Possible abscess of the left foot. 4. Severe PAD of the left lower extremities. 5. Methicillin-resistant Staphylococcus aureus bacteremia with a recheck blood culture negative on 11/10, positive blood culture was on 11/08. 6. Obesity. 7. Debility. 8. Continue with antibiotics at this point. Vancomycin trough is acceptable. The patient may end up with BKA, however, patient has not agreed to this, continue with PT/OT. Continue to monitor the patient clinically and follow with the labs. Monitor renal function and continue wound care. Continue PT/OT. Further management of this patient is based on daily findings on laboratory and physical examination. Guarded prognosis. Please refer to chart for more information. Discussed with Dr. Floyd in detail and also discussed with the attending team, nurse practitioner, Ms. Adriana Bartholomew. Dictated by Ryland Tatum PA-C (Al) Latanya Floyd MD /MODL /[id number]
[2019-11-14] MEDS: CARISOPRODOL 350 MG TAB PO SCH ×2 (17:45→23:58)
[2019-11-14] MEDS: CARBAMAZEPINE 200 MG TAB PO SCH (17:45)
[2019-11-14] MEDS: ATORVASTATIN 20 MG TAB PO SCH (20:10)
[2019-11-15] VITALS (8 sets, daily range): BP systolic 119–136; BP diastolic 53–67
[2019-11-15] MEDS: VANCOMYCIN 1GM/NS 250 ML 250 ML IV SCH ×2 (03:00→17:04)
[2019-11-15] MEDS: PIPER-TAZ 3.375 GM 50 ML IV SCH ×3 (05:45→22:00)
[2019-11-15] MEDS: CARISOPRODOL 350 MG TAB PO SCH ×4 (05:45→23:00)
[2019-11-15 06:36] LABS: BASOPHILS % 0.5 % (0.0-1.0); EOSINOPHILS # (AUTO) 0.2 (0.0-0.4); EOSINOPHILS % 2.1 % (0.0-6.0); HEMATOCRIT 31.7 % (34.2-44.1); HEMOGLOBIN 9.5 g/dL (12.0-16.0); LYMPHOCYTES % 13.2 % (18.0-39.1); MEAN CORPUSCULAR HEMOGLOBIN 30.1 pg (28-32); MEAN CORPUSCULAR VOLUME 100.3 fL (81-99); MONOCYTES # (AUTO) 0.8 (0.2-0.8); MONOCYTES % 10.9 % (4.4-11.3); NEUTROPHILS # (AUTO) 5.5 (2.1-6.9); NEUTROPHILS % 72.5 % (38.7-80.0); PLATELET COUNT 304 x10e3/uL (140-360); RED BLOOD COUNT 3.16 x10e6/uL (3.6-5.1); RED CELL DISTRIBUTION WIDTH 14.4 % (11.7-14.4)
[2019-11-15 07:06] LABS: ANION GAP 16.3 mmol/L (8-16); BLOOD UREA NITROGEN 6 mg/dL (7-26); BUN/CREATININE RATIO 8 (6-25); CALCIUM 7.9 mg/dL (8.4-10.2); CARBON DIOXIDE 37 mmol/L (22-29); CHLORIDE 92 mmol/L (98-107); CREATININE, SERUM 0.75 mg/dL (0.57-1.11); EST GLOMERULAR FILTRATION RATE > 60 ML/MIN (60-); GLUCOSE 156 mg/dL (74-118); POTASSIUM 3.3 mmol/L (3.5-5.1); SODIUM 142 mmol/L (136-145)
[2019-11-15 07:08] LABS: MAGNESIUM 1.1 MG/DL (1.3-2.1)
[2019-11-15] MEDS: INSULIN REGULAR, HUMAN 100 UNIT/1 ML 3ML VIAL SQ SCH ×4 (08:16→20:20)
[2019-11-15] MEDS: DOCUSATE SODIUM 100 MG CAP PO SCH ×2 (09:00→17:00)
[2019-11-15] MEDS: FUROSEMIDE INJ 10 MG/ML 4 ML VIAL IV SCH (09:05)
[2019-11-15] MEDS: LOSARTAN POTASSIUM 100 MG TAB PO SCH (09:06)
[2019-11-15] MEDS: HYDROCODONE/APAP 10MG-325MG TAB PO PRN (09:07)
[2019-11-15] MEDS: CARBAMAZEPINE 200 MG TAB PO SCH ×2 (09:07→17:05)
[2019-11-15] MEDS: POTASSIUM CHLORIDE 20 MEQ TAB CR PO SCH ×2 (09:07→17:05)
[2019-11-15] MEDS: BALSAM PERU/CASTOR OIL 60 GM OINT...G. TP SCH (09:07)
[2019-11-15] MEDS: FLUCONAZOLE 400MG/200ML BAG 200 ML IV SCH (12:11)
--- NOTE | 2019-11-15 12:27 | Progress Note ---
DATE: SUBJECTIVE: The patient is seen and evaluated. Available labs and notes reviewed. REVIEW OF SYSTEMS: No nausea, vomiting, fever, chills, chest pain, shortness of breath, headache, rash, cough, or dysuria. MEDICATIONS: Medication list is reviewed. From Infectious Disease point of view, the patient is on vancomycin IV, Zosyn and Diflucan. LABORATORY STUDIES: White count of 7.63, hemoglobin 9.5, and platelet 304. Sodium 142, potassium 3.2, and creatinine 0.75. MICROBIOLOGY: Blood culture recheck negative. RADIOLOGY STUDIES: No new radiology studies available. PHYSICAL EXAMINATION: VITAL SIGNS: Temperature 97.7, pulse 79, respirations 18, and blood pressure 126/55. GENERAL: Alert and oriented, no acute distress. CV: S1-S2. CHEST: Equal expansion. Clear to auscultation. No acute distress. ABDOMEN: Soft, nontender, obese. Bowel sounds positive. HEENT: Moist. No pallor. No JVD. EXTREMITIES: Cellulitis of bilateral lower extremities with left worse than right, also with wound on the left foot on local care. ASSESSMENT AND PLAN: 1. Multifocal septic arthritis. 2. Osteomyelitis. 3. Left foot abscess. 4. Severe peripheral arterial disease of the left lower extremity. 5. Methicillin-resistant Staphylococcus aureus bacteremia. Recheck blood culture negative. 6. Debility-multifactorial. 7. Obesity. I discussed with the patient and the patient agreed to BKA. She is telling me that she has already discussed with Dr. Oneill and he is aware of her decision. Tentatively BKA scheduled for tomorrow afternoon. We will continue with antibiotics. Monitor the patient clinically. Follow with the labs. Further management of this patient is based on daily findings on laboratory and physical examination. Please refer to chart for more information. MD FARHAN Mathews/STEVE /[id number]
--- NOTE | 2019-11-15 13:58 | Progress Note ---
DATE: SUBJECTIVE: The patient was seen at bedside today, in no acute distress. Dressings are clean, dry, and intact. DVT of left lower extremity. She is scheduled for amputation with Dr. Oneill tomorrow. At this point, Podiatry will sign off. Please reconsult if services are required. She is to follow up with me in clinic after discharge. Thank you again for including me in the care of this patient. Eve Brooks DPM [facility]/MODL /[id number]
--- NOTE | 2019-11-15 14:03 | Progress Note ---
DATE: SUBJECTIVE: The patient was seen at bedside today, in no acute distress. Dressings are clean, dry, and intact. DVT of left lower extremity. She is scheduled for amputation with Dr. Oneill tomorrow. At this point, Podiatry will sign off. Please reconsult if services are required. She is to follow up with me in clinic after discharge. Thank you again for including me in the care of this patient. Eve Brooks DPM [facility]/MODL /[id number]
[2019-11-15] MEDS: ATORVASTATIN 20 MG TAB PO SCH (22:28)
[2019-11-15] MEDS: MORPHINE SULFATE 2 MG/ML SYR 1ML IV PRN (23:48)
[2019-11-16 01:18] VITALS: BP 99/55
[2019-11-16] MEDS: VANCOMYCIN 1GM/NS 250 ML 250 ML IV SCH ×2 (05:00→18:00)
[2019-11-16] MEDS: CARISOPRODOL 350 MG TAB PO SCH ×3 (05:09→18:01)
[2019-11-16 05:44] VITALS: BP 130/61
[2019-11-16] MEDS: PIPER-TAZ 3.375 GM 50 ML IV SCH ×3 (06:00→22:53)
[2019-11-16] MEDS: MORPHINE SULFATE 2 MG/ML SYR 1ML IV PRN ×2 (06:00→13:45)
[2019-11-16 06:35] LABS: BASOPHILS % 0.6 % (0.0-1.0); EOSINOPHILS # (AUTO) 0.1 (0.0-0.4); HEMATOCRIT 32.2 % (34.2-44.1); HEMOGLOBIN 9.8 g/dL (12.0-16.0); LYMPHOCYTES # (AUTO) 0.8 (1.0-3.2); MEAN CORPUSCULAR HEMOGLOBIN 29.8 pg (28-32); MEAN CORPUSCULAR HGB CONC 30.4 g/dL (31-35); MEAN CORPUSCULAR VOLUME 97.9 fL (81-99); MONOCYTES # (AUTO) 0.8 (0.2-0.8); NEUTROPHILS # (AUTO) 5.1 (2.1-6.9); NEUTROPHILS % 73.5 % (38.7-80.0); PLATELET COUNT 297 x10e3/uL (140-360); RED BLOOD COUNT 3.29 x10e6/uL (3.6-5.1); RED CELL DISTRIBUTION WIDTH 14.6 % (11.7-14.4)
[2019-11-16 07:00] LABS: ALANINE AMINOTRANSFERASE 10 IU/L (0-55); ALBUMIN 1.6 g/dL (3.5-5.0); ALBUMIN/GLOBULIN RATIO 0.3 (0.8-2.0); ALKALINE PHOSPHATASE 80 IU/L (40-150); ANION GAP 13.3 mmol/L (8-16); BLOOD UREA NITROGEN 6 mg/dL (7-26); BUN/CREATININE RATIO 8 (6-25); CALCIUM 7.6 mg/dL (8.4-10.2); CHLORIDE 89 mmol/L (98-107); CREATININE, SERUM 0.75 mg/dL (0.57-1.11); EST GLOMERULAR FILTRATION RATE > 60 ML/MIN (60-); GLUCOSE 137 mg/dL (74-118); POTASSIUM 3.3 mmol/L (3.5-5.1); SODIUM 140 mmol/L (136-145)
[2019-11-16 07:03] LABS: CARBON DIOXIDE 41 mmol/L (22-29); MAGNESIUM 1.1 MG/DL (1.3-2.1)
[2019-11-16] MEDS: INSULIN REGULAR, HUMAN 100 UNIT/1 ML 3ML VIAL SQ SCH ×4 (07:30→21:31)
[2019-11-16 08:00] VITALS: BP 133/99
[2019-11-16] MEDS: BALSAM PERU/CASTOR OIL 60 GM OINT...G. TP SCH ×2 (09:00→10:23)
[2019-11-16] MEDS: CARBAMAZEPINE 200 MG TAB PO SCH ×2 (09:00→18:01)
[2019-11-16] MEDS: DOCUSATE SODIUM 100 MG CAP PO SCH ×2 (09:00→17:00)
[2019-11-16] MEDS: LOSARTAN POTASSIUM 100 MG TAB PO SCH (09:00)
[2019-11-16] MEDS: POTASSIUM CHLORIDE 20 MEQ TAB CR PO SCH ×2 (09:00→18:01)
[2019-11-16] MEDS: FUROSEMIDE INJ 10 MG/ML 4 ML VIAL IV SCH (09:09)
--- NOTE | 2019-11-16 09:57 | Progress Note ---
DATE: SUBJECTIVE: The patient is seen and evaluated. Available labs and notes reviewed. Discussed with Dr. Floyd. Discussed with the nurse. Uneventful night. REVIEW OF SYSTEMS: No nausea, vomiting, fever, chills, chest pain, shortness of breath, headache, or rash. PHYSICAL EXAMINATION: VITAL SIGNS: Temperature 97.8, pulse is 75, respirations 22, blood pressure 133/99. GENERAL: Alert and oriented, in no acute distress, morbidly obese, comfortable in bed. CV: S1, S2. CHEST: Equal expansion. Clear to auscultation. No acute distress. ABDOMEN: Soft, nontender. No distention. HEENT: Moist. No pallor. No JVD. EXTREMITIES: Severe cellulitis of the left lower extremity. MEDICATIONS: Reviewed. As far as Infectious Disease point of view, the patient is on vancomycin IV, Zosyn and Diflucan. LABORATORY STUDIES: White count 6.92, hemoglobin 9.8, platelet 297. Sodium 140, potassium 3.3, creatinine 0.75. TOXICOLOGY: Vancomycin trough 15.4, discussed with staff yesterday regarding vancomycin trough. SEROLOGY: Coronavirus PCR 11/09/2019, not detected. Coronavirus PCR 11/15/2019, is pending. MICROBIOLOGY: Blood culture 11/11/2019, negative. IMAGING: No new radiology studies available. ASSESSMENT AND PLAN: 1. Multifocal septic arthritis and probable abscess of the left foot and possible distal tibia and fibula. 2. MRI showed bacteremia-recheck blood culture negative as above. 3. Severe peripheral arterial disease. 4. Morbid obesity. 5. Debility, multifactorial. 6. Continue with antibiotics. Pending BKA, most likely to be done today. I am going to continue monitor the patient clinically. Follow with the labs. Discussed with Dr. Floyd in details. Please refer to chart for more information. Dictated by Ryland Tatum PA-C (Al) Latanya Floyd MD /MODL /[id number]
[2019-11-16] MEDS ORDERED: MAGNESIUM SULFATE 2GM/50ML 50 ML IV ONE (11:30)
[2019-11-16 12:00] VITALS: BP 141/68
[2019-11-16] MEDS: FLUCONAZOLE 400MG/200ML BAG 200 ML IV SCH (12:00)
[2019-11-16] MEDS ORDERED: POTASSIUM CHLORIDE 20MEQ/100ML 100 ML IV ONE ×3 (13:00→20:00)
[2019-11-16] MEDS ORDERED: SUGAMMADEX SODIUM 200 MG/2 ML VIAL IV ONE ×2 (15:47→16:24)
[2019-11-16] MEDS ORDERED: HYDROMORPHONE 1MG/1ML INJ ONE (16:43)
[2019-11-16] MEDS ORDERED: MORPHINE SULFATE 2 MG/ML SYR 1ML ONE (17:05)
[2019-11-16] MEDS ORDERED: LIDOCAINE HCL 2% LOCAL INJ 5 ML SDV VIAL INJ ONE (19:20)
[2019-11-16] MEDS ORDERED: SEVOFLURANE INHAL SOLN 250 ML PEN BTL ONE (19:20)
[2019-11-16] MEDS ORDERED: ONDANSETRON HCL INJ 2MG/ML 2ML 2 MG/ML VIAL ONE (19:20)
[2019-11-16] MEDS ORDERED: PROPOFOL IV EMULSION 10 MG/ML 20 ML VIAL ONE (19:20)
[2019-11-16] MEDS ORDERED: ROCURONIUM BROMIDE 10 MG/ML 5ML VIAL IV ONE (19:20)
[2019-11-16] MEDS ORDERED: EPHEDRINE SULFATE INJ 50 MG/ML VIAL ONE (19:20)
[2019-11-16 20:00] VITALS: BP 106/51
[2019-11-16] MEDS ORDERED: SODIUM CHLORIDE 0.9% 250ML 250 ML ONE (20:08)
[2019-11-16] MEDS: MORPHINE SULFATE INJ 4 MG/ML INJ 1ML IV PRN (20:26)
[2019-11-16] MEDS: ATORVASTATIN 20 MG TAB PO SCH (20:26)
[2019-11-16] MEDS: ONDANSETRON HCL 4 MG ORAL DISINTEGRATING TAB PO PRN (20:26)
[2019-11-16 22:10] VITALS: BP 106/51
--- NOTE | 2019-11-16 22:51 | Operative Report ---
DATE OF PROCEDURE: 11/16/2019 SURGEON: Jose F Oneill MD PREOPERATIVE DIAGNOSIS: Nonhealing ulcer, left foot; osteomyelitis, left foot. POSTOPERATIVE DIAGNOSIS: Nonhealing ulcer, left foot; osteomyelitis, left foot. PROCEDURE: Left above knee amputation. HOME PLANNING CONSULTANT SALESPERSON: None. ANESTHESIA: General. INDICATIONS AND FINDINGS: The patient is a 63-year-old female, who is nonambulatory, admitted to the hospital with sepsis secondary to infection of left foot, found to have osteomyelitis as well as nonhealing wound. At surgery, the patient edema of the thigh, but otherwise tissues all appeared viable. Superficial femoral artery was found to be patent, and there was no venous thrombosis. TECHNIQUE: After adequate general anesthesia, the patient in supine position, the left leg was prepped and draped in a sterile fashion with ChloraPrep solution. A fishmouth incision was made just above the knee, carried down through subcutaneous tissue. The anterior muscles were divided with electrocautery. Saphenous veins divided between clamps. The femur was exposed. It was stripped as periosteum and divided as proximally as possible with Gigli saw. The superficial femoral neurovascular bundle was divided between clamps. The posterior muscles were divided. The sciatic nerve was also divided as proximally as possible. Remaining tissue was divided and the leg was removed. The vessels have been clamped and suture ligated with 2-0 silk and the superficial femoral artery and vein were doubly suture ligated with 2-0 silk. The sciatic nerve also was ligated with 2-0 silk. Hemostasis was seem to be adequate. It was irrigated with saline. Superficial fascia was then closed with interrupted sutures of 2-0 Vicryl and the skin was closed with tonya. Sterile dressing was applied. The patient tolerated the procedure well. Estimated blood loss was 300 mL. There were no complications. All counts were correct and the patient was taken to the recovery room in satisfactory condition. MD JOSIE Perla/NEELIMAL /[id number]
[2019-11-17] VITALS (8 sets, daily range): BP systolic 101–112; BP diastolic 48–67
[2019-11-17] MEDS: MORPHINE SULFATE INJ 4 MG/ML INJ 1ML IV PRN ×3 (00:33→17:06)
[2019-11-17] MEDS: CARISOPRODOL 350 MG TAB PO SCH ×5 (00:33→23:24)
[2019-11-17] MEDS: ONDANSETRON HCL 4 MG ORAL DISINTEGRATING TAB PO PRN (00:34)
[2019-11-17] MEDS: HYDROCODONE/APAP 10MG-325MG TAB PO PRN ×2 (03:13→12:04)
[2019-11-17] MEDS: PIPER-TAZ 3.375 GM 50 ML IV SCH ×3 (05:17→21:01)
[2019-11-17 06:23] LABS: EOSINOPHILS # (AUTO) 0.1 (0.0-0.4); HEMATOCRIT 29.8 % (34.2-44.1); HEMOGLOBIN 8.7 g/dL (12.0-16.0); LYMPHOCYTES # (AUTO) 0.9 (1.0-3.2); MEAN CORPUSCULAR HEMOGLOBIN 30.2 pg (28-32); MEAN CORPUSCULAR HGB CONC 29.2 g/dL (31-35); MEAN CORPUSCULAR VOLUME 103.5 fL (81-99); NEUTROPHILS # (AUTO) 7.1 (2.1-6.9); PLATELET COUNT 263 x10e3/uL (140-360); RED BLOOD COUNT 2.88 x10e6/uL (3.6-5.1)
[2019-11-17 07:18] LABS: ANION GAP 15.7 mmol/L (8-16); BLOOD UREA NITROGEN 11 mg/dL (7-26); BUN/CREATININE RATIO 14 (6-25); CALCIUM 7.4 mg/dL (8.4-10.2); CARBON DIOXIDE 39 mmol/L (22-29); CHLORIDE 89 mmol/L (98-107); CREATININE, SERUM 0.77 mg/dL (0.57-1.11); EST GLOMERULAR FILTRATION RATE > 60 ML/MIN (60-); GLUCOSE 147 mg/dL (74-118); POTASSIUM 3.7 mmol/L (3.5-5.1); SODIUM 140 mmol/L (136-145)
[2019-11-17] MEDS: INSULIN REGULAR, HUMAN 100 UNIT/1 ML 3ML VIAL SQ SCH ×4 (07:30→20:19)
[2019-11-17] MEDS: VANCOMYCIN 1GM/NS 250 ML 250 ML IV SCH ×2 (08:22→17:05)
[2019-11-17] MEDS: DOCUSATE SODIUM 100 MG CAP PO SCH ×2 (09:00→17:05)
[2019-11-17] MEDS: FUROSEMIDE INJ 10 MG/ML 4 ML VIAL IV SCH (09:26)
[2019-11-17] MEDS: POTASSIUM CHLORIDE 20 MEQ TAB CR PO SCH ×2 (09:27→17:05)
[2019-11-17] MEDS: CARBAMAZEPINE 200 MG TAB PO SCH ×2 (09:27→17:05)
[2019-11-17] MEDS: LOSARTAN POTASSIUM 100 MG TAB PO SCH (09:27)
[2019-11-17] MEDS: BALSAM PERU/CASTOR OIL 60 GM OINT...G. TP SCH (09:49)
[2019-11-17] MEDS: FLUCONAZOLE 400MG/200ML BAG 200 ML IV SCH (12:04)
[2019-11-17] MEDS ORDERED: SODIUM CHLORIDE 0.9% 250ML 250 ML ONE (20:16)
[2019-11-17] MEDS: ATORVASTATIN 20 MG TAB PO SCH (20:18)
[2019-11-17 20:21] LABS: PLATELET MORPHOLOGY COMMENT NORMAL
[2019-11-17 20:22] LABS: PLATELET ESTIMATE ADEQUATE; RBC MORPHOLOGY COMMENT NORMAL
[2019-11-18] VITALS (8 sets, daily range): BP systolic 100–126; BP diastolic 58–73
[2019-11-18] MEDS: MORPHINE SULFATE INJ 4 MG/ML INJ 1ML IV PRN (01:38)
[2019-11-18] MEDS: ONDANSETRON HCL 4 MG ORAL DISINTEGRATING TAB PO PRN (01:38)
[2019-11-18] MEDS: VANCOMYCIN 1GM/NS 250 ML 250 ML IV SCH ×2 (04:04→16:45)
[2019-11-18] MEDS: CARISOPRODOL 350 MG TAB PO SCH ×4 (05:50→23:30)
[2019-11-18] MEDS: PIPER-TAZ 3.375 GM 50 ML IV SCH ×3 (05:50→21:00)
[2019-11-18 06:42] LABS: BASOPHILS % 0.6 % (0.0-1.0); EOSINOPHILS # (AUTO) 0.3 (0.0-0.4); EOSINOPHILS % 3.5 % (0.0-6.0); HEMATOCRIT 28.7 % (34.2-44.1); HEMOGLOBIN 8.5 g/dL (12.0-16.0); LYMPHOCYTES # (AUTO) 1.1 (1.0-3.2); LYMPHOCYTES % 14.9 % (18.0-39.1); MEAN CORPUSCULAR HEMOGLOBIN 29.3 pg (28-32); MEAN CORPUSCULAR HGB CONC 29.6 g/dL (31-35); MONOCYTES # (AUTO) 0.9 (0.2-0.8); MONOCYTES % 12.4 % (4.4-11.3); NEUTROPHILS # (AUTO) 4.8 (2.1-6.9); NEUTROPHILS % 67.1 % (38.7-80.0); PLATELET COUNT 307 x10e3/uL (140-360); RED CELL DISTRIBUTION WIDTH 15.3 % (11.7-14.4)
[2019-11-18 07:10] LABS: ALANINE AMINOTRANSFERASE 9 IU/L (0-55); ALBUMIN 1.7 g/dL (3.5-5.0); ALBUMIN/GLOBULIN RATIO 0.4 (0.8-2.0); ALKALINE PHOSPHATASE 72 IU/L (40-150); BLOOD UREA NITROGEN 6 mg/dL (7-26); BUN/CREATININE RATIO 10 (6-25); CALCIUM 7.6 mg/dL (8.4-10.2); CARBON DIOXIDE 39 mmol/L (22-29); CHLORIDE 92 mmol/L (98-107); CREATININE, SERUM 0.62 mg/dL (0.57-1.11); EST GLOMERULAR FILTRATION RATE > 60 ML/MIN (60-); GLUCOSE 122 mg/dL (74-118); SODIUM 139 mmol/L (136-145)
[2019-11-18] MEDS: INSULIN REGULAR, HUMAN 100 UNIT/1 ML 3ML VIAL SQ SCH ×4 (07:30→20:19)
[2019-11-18] MEDS: FUROSEMIDE INJ 10 MG/ML 4 ML VIAL IV SCH (08:43)
[2019-11-18] MEDS: CARBAMAZEPINE 200 MG TAB PO SCH ×2 (08:43→16:45)
[2019-11-18] MEDS: POTASSIUM CHLORIDE 20 MEQ TAB CR PO SCH ×2 (08:43→16:45)
[2019-11-18] MEDS: DOCUSATE SODIUM 100 MG CAP PO SCH ×2 (08:43→16:45)
[2019-11-18] MEDS: HYDROCODONE/APAP 10MG-325MG TAB PO PRN (08:43)
[2019-11-18] MEDS: BALSAM PERU/CASTOR OIL 60 GM OINT...G. TP SCH (08:43)
[2019-11-18] MEDS: LOSARTAN POTASSIUM 100 MG TAB PO SCH (08:43)
[2019-11-18] MEDS: PREGABALIN 75 MG CAP PO SCH ×2 (10:35→16:45)
[2019-11-18 11:25] LABS: PLATELET ESTIMATE ADEQUATE; PLATELET MORPHOLOGY COMMENT NORMAL; RBC MORPHOLOGY COMMENT NORMAL
[2019-11-18] MEDS: FLUCONAZOLE 400MG/200ML BAG 200 ML IV SCH (11:58)
[2019-11-18] MEDS: HYDROMORPHONE 1MG/1ML INJ IV PRN ×2 (11:59→18:08)
--- NOTE | 2019-11-18 18:02 | Progress Note ---
DATE: SUBJECTIVE: Ms. Mccray remains in medical floor. REVIEW OF SYSTEMS: She is just weak. PHYSICAL EXAMINATION: GENERAL: She is currently alert, oriented, does not seem in distress. VITAL SIGNS: Stable, currently afebrile. HEENT: She is not icteric. NECK: Supple. CHEST: Clear. COR: S1, S2. ABDOMEN: Soft. LABORATORY DATA: Her blood cultures are negative. Her white count is 7.16, hemoglobin 8.5, sodium 139, and potassium 4.5. Last vancomycin trough was 12.4. IMPRESSION: The patient is status post left [id number] amputation. The patient is doing well. Can discontinue antibiotics soon. Continue local care. MD FARHAN Mathews/MODL /[id number]
[2019-11-18] MEDS ORDERED: SODIUM CHLORIDE 0.9% 250ML 250 ML ONE (20:27)
[2019-11-18] MEDS: ATORVASTATIN 20 MG TAB PO SCH (20:34)
[2019-11-19] VITALS (8 sets, daily range): BP systolic 92–117; BP diastolic 58–74
[2019-11-19] MEDS: ONDANSETRON HCL 4 MG ORAL DISINTEGRATING TAB PO PRN (03:46)
[2019-11-19] MEDS: HYDROMORPHONE 1MG/1ML INJ IV PRN ×2 (03:46→16:00)
[2019-11-19] MEDS: CARISOPRODOL 350 MG TAB PO SCH ×3 (05:15→18:00)
[2019-11-19] MEDS: PIPER-TAZ 3.375 GM 50 ML IV SCH (05:15)
[2019-11-19 06:04] LABS: BASOPHILS % 0.6 % (0.0-1.0); EOSINOPHILS # (AUTO) 0.3 (0.0-0.4); HEMATOCRIT 28.4 % (34.2-44.1); HEMOGLOBIN 8.4 g/dL (12.0-16.0); LYMPHOCYTES # (AUTO) 1.1 (1.0-3.2); LYMPHOCYTES % 17.2 % (18.0-39.1); MEAN CORPUSCULAR HEMOGLOBIN 29.6 pg (28-32); MEAN CORPUSCULAR HGB CONC 29.6 g/dL (31-35); MONOCYTES # (AUTO) 0.7 (0.2-0.8); MONOCYTES % 11.1 % (4.4-11.3); NEUTROPHILS # (AUTO) 4.3 (2.1-6.9); NEUTROPHILS % 65.4 % (38.7-80.0); PLATELET COUNT 296 x10e3/uL (140-360); RED BLOOD COUNT 2.84 x10e6/uL (3.6-5.1); RED CELL DISTRIBUTION WIDTH 15.6 % (11.7-14.4)
[2019-11-19 06:44] LABS: ALANINE AMINOTRANSFERASE 8 IU/L (0-55); ALBUMIN 1.7 g/dL (3.5-5.0); ALBUMIN/GLOBULIN RATIO 0.4 (0.8-2.0); ALKALINE PHOSPHATASE 68 IU/L (40-150); ANION GAP 12.9 mmol/L (8-16); BLOOD UREA NITROGEN 10 mg/dL (7-26); BUN/CREATININE RATIO 16 (6-25); CALCIUM 7.7 mg/dL (8.4-10.2); CARBON DIOXIDE 37 mmol/L (22-29); CHLORIDE 91 mmol/L (98-107); CREATININE, SERUM 0.61 mg/dL (0.57-1.11); EST GLOMERULAR FILTRATION RATE > 60 ML/MIN (60-); GLUCOSE 109 mg/dL (74-118); POTASSIUM 3.9 mmol/L (3.5-5.1); SODIUM 137 mmol/L (136-145)
[2019-11-19] MEDS ORDERED: HYDROMORPHONE 1MG/1ML INJ IV STA (07:17)
[2019-11-19] MEDS: INSULIN REGULAR, HUMAN 100 UNIT/1 ML 3ML VIAL SQ SCH ×4 (07:30→21:10)
[2019-11-19] MEDS: VANCOMYCIN 1GM/NS 250 ML 250 ML IV SCH ×2 (07:37→17:18)
--- NOTE | 2019-11-19 08:29 | Progress Note ---
DATE: SUBJECTIVE: The patient is seen and evaluated. Available labs and notes reviewed. REVIEW OF SYSTEMS: Complains of a pain in left lower extremity at surgical site. Otherwise, no nausea, vomiting, fever, chills, chest pain, or shortness of breath. MEDICATIONS: Medications reviewed. From Infectious Disease point of view, the patient is on vancomycin IV and Zosyn. LABORATORY DATA: White blood cells 6.57, hemoglobin 8.4, and platelets 296. Sodium 137, potassium 3.9, and creatinine 0.61. Vancomycin trough 16.2. Serology; coronavirus 11/08 negative. Coronavirus 11/14 pending. MICROBIOLOGY: Recheck blood culture negative. RADIOLOGY: No new radiology. PHYSICAL EXAMINATION: VITAL SIGNS: Temperature is 98.8, pulse 86, respirations 16, and blood pressure 147/98. Recheck vital signs are temperature 97.9, pulse is 93, respiration 18, and blood pressure 102/62. GENERAL: Alert, oriented, no acute distress. CV: S1-S2. CHEST: Equal expansion. Clear to auscultation. No acute distress. ABDOMEN: Soft, nontender. No distention. HEENT: Moist. No pallor. No JVD. EXTREMITIES: Left lower extremity AKA dressed. General Surgery noted that the patient did only open the dressing secondary to pain. There is some serosanguineous drainage per General Surgery note. ASSESSMENT AND PLAN: 1. Methicillin-resistant Staphylococcus aureus bacteremia-recheck blood culture negative on 11/10. 2. Cellulitis of the left leg. 3. History of multifocal septic arthritis and probable abscess of the left foot, now status post above-knee amputation. 4. Morbid obesity. 5. Pain. 6. Debility. Remains on vancomycin IV and Zosyn, we will taper antibiotics soon, discussed with Dr. Floyd. Please refer to chart for more information. Dictated by Ryland Tatum PA-C (Al) Latanya Floyd MD /MODL /[id number]
[2019-11-19] MEDS: DOCUSATE SODIUM 100 MG CAP PO SCH ×2 (09:02→17:00)
[2019-11-19] MEDS: FUROSEMIDE INJ 10 MG/ML 4 ML VIAL IV SCH (09:02)
[2019-11-19] MEDS: LOSARTAN POTASSIUM 100 MG TAB PO SCH (09:02)
[2019-11-19] MEDS: CARBAMAZEPINE 200 MG TAB PO SCH ×2 (09:03→17:19)
[2019-11-19] MEDS: BALSAM PERU/CASTOR OIL 60 GM OINT...G. TP SCH (09:03)
[2019-11-19] MEDS: POTASSIUM CHLORIDE 20 MEQ TAB CR PO SCH ×2 (09:03→17:18)
[2019-11-19] MEDS: PREGABALIN 75 MG CAP PO SCH ×2 (09:03→17:18)
[2019-11-19 12:22] LABS: HYPOCHROMASIA SLIGHT; PLATELET ESTIMATE ADEQUATE; PLATELET MORPHOLOGY COMMENT PLATELET SATELITE; RBC MORPHOLOGY COMMENT NORMAL
[2019-11-19] MEDS: ATORVASTATIN 20 MG TAB PO SCH (21:10)
[2019-11-20] VITALS: BP_SYST 107; BP_SYST 110; BP_DIAS 59; BP_DIAS 61
[2019-11-20] MEDS: HYDROMORPHONE 1MG/1ML INJ IV PRN ×3 (00:55→17:40)
[2019-11-20] MEDS: VANCOMYCIN 1GM/NS 250 ML 250 ML IV SCH ×2 (05:34→16:15)
[2019-11-20] MEDS: CARISOPRODOL 350 MG TAB PO SCH ×4 (05:35→18:00)
[2019-11-20 06:11] LABS: BASOPHILS # (AUTO) 0.1 (0.0-0.1); BASOPHILS % 0.8 % (0.0-1.0); EOSINOPHILS # (AUTO) 0.2 (0.0-0.4); EOSINOPHILS % 2.8 % (0.0-6.0); LYMPHOCYTES # (AUTO) 1.4 (1.0-3.2); LYMPHOCYTES % 21.4 % (18.0-39.1); MEAN CORPUSCULAR HEMOGLOBIN 30.9 pg (28-32); MEAN CORPUSCULAR VOLUME 103.1 fL (81-99); MONOCYTES % 14.9 % (4.4-11.3); NEUTROPHILS # (AUTO) 3.7 (2.1-6.9); NEUTROPHILS % 58.2 % (38.7-80.0); PLATELET COUNT 213 x10e3/uL (140-360); RED BLOOD COUNT 2.91 x10e6/uL (3.6-5.1); RED CELL DISTRIBUTION WIDTH 16.2 % (11.7-14.4)
[2019-11-20 06:24] LABS: ALANINE AMINOTRANSFERASE 8 IU/L (0-55); ALBUMIN 1.7 g/dL (3.5-5.0); ALBUMIN/GLOBULIN RATIO 0.3 (0.8-2.0); ALKALINE PHOSPHATASE 65 IU/L (40-150); ANION GAP 17.3 mmol/L (8-16); BLOOD UREA NITROGEN 14 mg/dL (7-26); BUN/CREATININE RATIO 21 (6-25); CALCIUM 7.6 mg/dL (8.4-10.2); CARBON DIOXIDE 29 mmol/L (22-29); CHLORIDE 95 mmol/L (98-107); CREATININE, SERUM 0.66 mg/dL (0.57-1.11); EST GLOMERULAR FILTRATION RATE > 60 ML/MIN (60-); GLUCOSE 133 mg/dL (74-118); POTASSIUM 4.3 mmol/L (3.5-5.1); SODIUM 137 mmol/L (136-145)
[2019-11-20] MEDS: INSULIN REGULAR, HUMAN 100 UNIT/1 ML 3ML VIAL SQ SCH ×3 (07:30→16:30)
[2019-11-20 08:18] VITALS: BP 115/63
[2019-11-20] MEDS: LOSARTAN POTASSIUM 100 MG TAB PO SCH (08:55)
[2019-11-20] MEDS: CARBAMAZEPINE 200 MG TAB PO SCH ×2 (08:55→17:14)
[2019-11-20] MEDS: FUROSEMIDE INJ 10 MG/ML 4 ML VIAL IV SCH (08:55)
[2019-11-20] MEDS: PREGABALIN 75 MG CAP PO SCH ×2 (08:55→17:14)
[2019-11-20] MEDS: DOCUSATE SODIUM 100 MG CAP PO SCH ×2 (08:55→17:00)
[2019-11-20] MEDS: POTASSIUM CHLORIDE 20 MEQ TAB CR PO SCH ×2 (08:56→17:00)
--- NOTE | 2019-11-20 11:13 | Progress Note ---
DATE: SUBJECTIVE: The patient is seen and evaluated. Available labs and notes reviewed. REVIEW OF SYSTEMS: No nausea, vomiting, fever, chills, chest pain, or shortness of breath. No complications with antibiotics. No rash. No cough. The patient is anxious to get with physical therapy. PHYSICAL EXAMINATION: VITAL SIGNS: Temperature 96.6, pulse is 69, respiration 20, and blood pressure 115/63. GENERAL: Alert and oriented, no acute distress. CV: S1 and S2. CHEST: Equal expansion. Clear to auscultation. No acute distress. ABDOMEN: Soft, morbidly obese, and nontender. Bowel sounds positive. HEENT: Moist. No pallor. No JVD. EXTREMITIES: Moves all, status post AKA of the left. Surgical site remains with stable. No obvious sign of dehiscence or erythema or drainage. No acute finding on AKA on the left. MEDICATIONS: Antibiotics were tapered down to vancomycin IV yesterday. LABORATORY STUDIES: White count 6.37, hemoglobin 9, and platelet 213. Sodium 137, potassium 4.3, and creatinine 0.66. Serology; coronavirus PCR 11/08 and 11/14, not detected. MICROBIOLOGY: Blood culture from 11/10, negative. Previous blood culture from 11/08 is positive for MRSA. RADIOLOGY STUDIES: No new radiology study is available. ASSESSMENT AND PLAN: 1. Methicillin-resistant Staphylococcus aureus bacteremia. Recheck blood cultures negative. Continue with vancomycin as ordered. 2. Osteomyelitis/abscess/septic joint of left lower extremity, status post AKA now. Continue with local care. 3. Morbid obesity. 4. Debility. 5. Pain seems to be improved. 6. Continue with wound care, continue with vancomycin IV. The patient is in aggressive rehab. Continue to monitor the patient clinically. Follow up with the labs. Discussed with Dr. Floyd in details. Please refer to chart for more information. Dictated by Ryland Tatum PA-C (Al) Latanya Floyd MD /MODL /[id number]
[2019-11-20] MEDS: BALSAM PERU/CASTOR OIL 60 GM OINT...G. TP SCH (11:15)
--- NOTE | 2019-11-20 11:45 | Progress Note ---
DATE: Cardiology Progress Note SUBJECTIVE: The patient reports her pain is much improved this morning. Denies any chest pain. Does endorse some shortness of breath. OBJECTIVE: VITAL SIGNS: Temperature 97.6, pulse 71, respiratory rate 19, blood pressure 110/66, oxygen saturation 95% on 2 L nasal cannula. GENERAL: Alert and oriented x3. Resting comfortably in the bed. Does not appear to be in any acute distress. LUNGS: Diminished breath sounds anterior lower lobes. Otherwise, clear to auscultation. No wheezing. No rhonchi or crackles. CARDIOVASCULAR: Regular rate and rhythm. Normal S1 and S2. ABDOMEN: Soft and nontender. EXTREMITIES: Lower extremity 2+ pedal pulses to the right lower leg with also some edema noted. Left leg [id number] amputation with site covered with dressing. CARDIOVASCULAR MEDICATIONS: Potassium chloride 20 mEq p.o. b.i.d., Lasix 40 mg IV daily, losartan 50 mg p.o. daily, atorvastatin 20 mg p.o. at bedtime. LABORATORY DATA: WBC 6.57, hemoglobin 8.4, hematocrit 28.4, platelets 296. Sodium 137, potassium 3.9, BUN 10, creatinine 0.61, GFR greater than 60. Glucose 109. TELEMETRY: Normal sinus rhythm. IMPRESSION: 1. Diabetic foot ulcer of the left foot, now status post amputation. 2. Cellulitis. 3. Hypertension. 4. Hyperlipidemia. 5. Diabetes mellitus. 6. History of congestive heart failure. RECOMMENDATIONS: Continue with our medical therapy of the above conditions. Recent peripheral angiogram with three-vessel runoff to the left foot and no significant peripheral arterial disease noted. We will continue to follow this patient postoperatively. Continue to maintain on telemetry. Dictated by Flory Cobos NP MD [facility] [employer]/STEVE /[id number]
[2019-11-20 11:58] VITALS: BP 113/62
[2019-11-20 15:54] VITALS: BP 107/58
[2019-11-20] MEDS ORDERED: ACETAMINOPHEN325 M1 PO (17:07)
[2019-11-20] MEDS ORDERED: DEXTROSE 50%-WA50 M1 IV (17:07)
[2019-11-20] MEDS ORDERED: HYDRALAZIN20 MG/1 ML IV (17:07)
[2019-11-20] MEDS ORDERED: FUROSEMIDE10 MG/1 M1 IV (17:07)
[2019-11-20] MEDS ORDERED: CALCIUM + VITA1 EACH PO (17:07)
[2019-11-20] MEDS ORDERED: LYRICA75 MG PO (17:07)
[2019-11-20] MEDS ORDERED: HUMULIN R100 UNIT/2 SQ (17:07)
[2019-11-20] MEDS ORDERED: COLACE100 MG PO (17:07)
[2019-11-20] MEDS ORDERED: MAGNESIUM OXID400 MG PO (17:07)
[2019-11-20] MEDS ORDERED: VANCOMYCIN1 GM/2001 IV (17:07)
[2019-11-20] MEDS ORDERED: ZINC SULFATE220 MG PO (17:07)
[2019-11-20] MEDS ORDERED: Ondansetron Oral Disintegratin PO (17:07)
[2019-11-20] MEDS ORDERED: VITAMIN C500 M2 PO (17:07)
[2019-11-20] MEDS ORDERED: VENELEX OINTMEN60 GM TP (17:07)
[2019-11-20] MEDS ORDERED: MULTIVITAMINS1 EAC6 PO (17:07)
[2019-11-20] MEDS ORDERED: KLOR-CON M2020 MEQ PO (17:07)
[2019-11-20] MEDS ORDERED: Hydromorphone 1MG/1ML Inj IV (17:07)
--- NOTE | 2019-11-20 19:41 | Discharge Summary ---
PRIMARY CARE PHYSICIAN: Cherry Fairchild MD CONSULTING PHYSICIANS: 1. Dr. Vivian Terry with Pain Management. 2. Dr. Latanya Floyd with Infectious Disease. 3. Dr. Andrew Mcdonald with Podiatry. 4. Dr. Jose F Oneill with Surgery. 5. Dr. Basim Huertas with Cardiology. CHIEF COMPLAINT: Left foot wound. HISTORY OF PRESENT ILLNESS: The patient is a 63-year-old female, who admitted with complaints of chronic left lower extremity wound. She was following up with Dr. Floyd had altered mental status and continued to repeat the same thing over and over at the time of admission. She was a poor historian. Per documentation, she said that the wound had been present for the last 7 years. On evaluation in the emergency department, she was found to have sepsis due to cellulitis and diabetic ulcer of the left foot. Bilateral lower extremity arterial Doppler was obtained, which suggested presence of peripheral arterial disease. More specifically arterial Doppler ultrasound on 11/11/2019, showed possible evidence of significant arterial stenosis in the popliteal, INTEGRITY ASSESSOR and JENNIFER, FA mid and distal was non-visualized. PAST MEDICAL HISTORY: Hypertension, hyperlipidemia, diabetes mellitus, congestive heart failure, chronic lymphedema, TB meningitis, morbid obesity, obstructive sleep apnea, insomnia, anxiety, peripheral arterial disease. PAST SURGICAL HISTORY: Appendectomy, knee surgery, lumbar spine surgery, hernia surgery. ALLERGIES: ALBUTEROL, LISINOPRIL, TOPIRAMATE. SOCIAL HISTORY: Denied tobacco, alcohol, or illicit drugs. FAMILY HISTORY: Parents had congestive heart failure. ADMITTING DIAGNOSES: 1. Left foot ulcer/peripheral artery disease. 2. Type 2 diabetes mellitus. 3. Hypertension with chronic congestive heart failure. 4. Hyperlipidemia. 5. Insomnia. 6. Chronic congestive heart failure. DISCHARGE DIAGNOSES: 1. Chronic left foot osteomyelitis/Charcot right foot, status post left [id number] amputation on 11/16/2019. 2. Methicillin-resistant Staphylococcus aureus bacteremia, POA. 3. Methicillin-resistant Staphylococcus aureus bacteriuria/candiduria. 4. Hypertension with chronic systolic congestive heart failure, controlled. 5. Chronic systolic congestive heart failure. 6. Ambulatory dysfunction. HOSPITAL COURSE: Echocardiogram done on 11/11/2019, showed estimated ejection fraction of 55% with trace tricuspid regurgitation and mitral regurgitation, cLVH and LAE. On admission WBCs 15.97. PT 16.1, INR 1.21. Sodium 136, potassium 2.6, chloride 94, CO2 of 27, BUN 14, creatinine 0.76. Estimated GFR greater than 60, glucose 209, lactic acid 2.9, calcium 8.0, AST 59, ALT 19, alkaline phosphatase 95. B-type natriuretic peptide 97.2. Total protein 7.2, albumin 1.6. Urinalysis; showed 2+ glucose, small amount of bilirubin, negative for leukocyte esterase, rbc's 6 to 10, wbc's 6 to 10, rare urine bacteria. Coronavirus PCR was not detected on 11/09/2019 as well as on 11/15/2019. On 11/09/2019, blood culture showed no growth, after 5 days another blood culture showed Staphylococcus aureus MRSA. On 11/10/2019, left foot wound culture showed MRSA, and strep agalactiae group B. Urine culture obtained on 11/10/2019, showed Staphylococcus aureus MRSA as well as Christine albicans. Blood cultures x2 on 11/11/2019, have shown no growth after 5 days, this is a final report. Admission chest x-ray was limited, showed enlarged cardiomediastinal silhouette and central vascular congestion extenuated by low lung volumes. Left middle lower lung field linear opacities unchanged from prior exam. Foot x-ray showed diffuse soft tissue swelling, especially in the hindfoot and ankle area. Large soft tissue defect seen in the lateral aspect of the hindfoot with underlying erosive changes at the base of the 5th metatarsal and lateral tarsal bones. Ankle x-ray showed no definite evidence of acute displaced fracture. Subtalar and tarsometatarsal joints were obscured consistent with Charcot arthropathy. MRI of the left foot on 11/13/2019, showed soft tissue ulceration of the lateral hindfoot with sinus tract and extensive osteomyelitis involving the hindfoot base of the 5th metatarsal and probable distal tibia and fibula, multifocal septic arthritis with probable abscess, however, poor delineation due to lack of contrast. She had a peripheral angiogram with 3-vessel runoff to the left foot with no significant peripheral arterial disease noted, which was completed on 11/13/2019. She was treated with vancomycin and Zosyn. Vancomycin trough level on 11/12/2019, was 12.9; on 11/14/2019 was 17.9; 11/19/2019 was 16.2. Hemoglobin A1c was 8.3%. The patient obtained transfer training from physical therapy. LABORATORY DATA: Today, WBC 6.37. WBC has been below 10 since 11/13/2019. Hemoglobin 9.0, hematocrit 30.0, and platelets 213. Sodium 137, potassium 4.3, chloride 95, CO2 of 29, BUN 14, creatinine 0.66. Estimated GFR greater than 60. Glucose 133. Fingerstick blood glucose levels today 132, 134, and 128. Calcium 7.6, total bilirubin 0.3, AST 16, ALT 8, alkaline phosphatase 65, total protein 6.7, albumin 1.7. The patient is to continue on ADA diet. Activity level as tolerated with support from physical therapy. The patient is concerned about her pain in transferring to the other facility. She has chosen [facility]. She had a large bowel movement today. PHYSICAL EXAMINATION: GENERAL: She is lying supine, in no apparent distress. LUNGS: Clear to auscultation. She is on 2 L of oxygen via nasal cannula, humidified. HEENT: EOMI. NECK: Supple. CARDIOVASCULAR: Regular rate and rhythm. No murmur. She has a left upper extremity PICC line. ABDOMEN: Bowel sounds positive. Soft, morbidly obese. Positive bowel sounds. EXTREMITIES: Left BKA with Kerlix dressing covering with some serosanguineous drainage. NEUROLOGICAL: GCS 15, nonfocal. FOLLOWUP: Follow up with accepting physician at [facility]. The patient to follow up with surgery and other consulting physicians as directed. Dictated by Eliazar Granger, NIXON Capo Cárdenas MD HWP/MODL /[id number]
[2019-11-20 20:01] VITALS: BP 117/66
== END 2019-11-20 20:13 | DRG 853 ==
LOC: ER 16:48 → ERHOLD 18:43 → UNDODISIN 20:16 → MED/SURG3 20:31
PROVIDERS: ADMIT Internal Medicine; ATTEND Internal Medicine
PROC: 02HV33Z Insertion of Infusion Device into Superior Vena Cava, Percutaneous Approach (ICD-10-PCS; 2019-11-09)
PROC: 0Y6D0Z1 Detachment at Left Upper Leg, High, Open Approach (ICD-10-PCS; principal; 2019-11-16 14:00)
DX: A41.9 Sepsis, unspecified organism (principal); G93.41 Metabolic encephalopathy; I50.22 Chronic systolic (congestive) heart failure; Z68.43 Body mass index [BMI] 50.0-59.9, adult; L03.115 Cellulitis of right lower limb; L03.116 Cellulitis of left lower limb; M00.872 Arthritis due to other bacteria, left ankle and foot; B37.49 Other urogenital candidiasis; Z68.42 Body mass index [BMI] 45.0-49.9, adult; M86.8X7 Other osteomyelitis, ankle and foot; I11.0 Hypertensive heart disease with heart failure; E11.51 Type 2 diabetes mellitus with diabetic peripheral angiopathy without gangrene; Z79.4 Long term (current) use of insulin; G47.00 Insomnia, unspecified; B95.62 Methicillin resistant Staphylococcus aureus infection as the cause of diseases classified elsewhere; E11.610 Type 2 diabetes mellitus with diabetic neuropathic arthropathy; E66.01 Morbid (severe) obesity due to excess calories; G47.33 Obstructive sleep apnea (adult) (pediatric); I89.0 Lymphedema, not elsewhere classified; E11.621 Type 2 diabetes mellitus with foot ulcer; L97.524 Non-pressure chronic ulcer of other part of left foot with necrosis of bone; E11.69 Type 2 diabetes mellitus with other specified complication; E78.5 Hyperlipidemia, unspecified; E87.6 Hypokalemia; G89.18 Other acute postprocedural pain
CPT/HCPCS: 36415; 71045; 75630; 80048; 80053; 80061; 80202; 81001; 82550; 82553; 82948; 83036; 83605; 83735; 83880; 84443; 84484; 85007; 85025; 85027; 85610; 85730; 87040; 87071; 87086; 87186; 87205; 87635; 88307; 88311; 93306; 93925; 97139; 99152; 99153; 99251; 99284; C1769; J1170; J1200; J1450; J1644; J1817; J1940; J2001; J2060; J2250; J2270; J2405; J2543; J3010; J3370; J3475; J3480; J7030; J7050; Q0162; Q9967

== ENCOUNTER 2022-07-23 05:05 | Observation (INO) | payer MEDICARE ==
[~2022-07-23] VITALS: Ht 170.2 cm; Wt 144.7 kg
[~2022-07-23 05:05] MED LIST changes: +ACETAMINOPHEN325 M1 PO; +CALCIUM + VITA1 EACH PO; +COLACE100 MG PO; +DEXTROSE 50%-WA50 M1 IV; +FUROSEMIDE10 MG/1 M1 IV; +HUMULIN R100 UNIT/2 SQ; +HYDRALAZIN20 MG/1 ML IV; +Hydromorphone 1MG/1ML Inj IV; +KLOR-CON M2020 MEQ PO; +LYRICA75 MG PO; +MAGNESIUM OXID400 MG PO; +MULTIVITAMINS1 EAC6 PO; +Ondansetron Oral Disintegratin PO; +VANCOMYCIN1 GM/2001 IV; +VENELEX OINTMEN60 GM TP; +VITAMIN C500 M2 PO; +ZINC SULFATE220 MG PO
[2022-07-23 05:45] LABS: BASOPHILS % 0.4 % (0.0-1.0); EOSINOPHILS # (AUTO) 0.1 (0.0-0.4); EOSINOPHILS % 1.6 % (0.0-6.0); HEMOGLOBIN 11.8 g/dL (12.0-16.0); LYMPHOCYTES % 14.8 % (18.0-39.1); MEAN CORPUSCULAR HEMOGLOBIN 33.1 pg (28-32); MEAN CORPUSCULAR HGB CONC 30.3 g/dL (31-35); MEAN CORPUSCULAR VOLUME 109.6 fL (81-99); MONOCYTES # (AUTO) 0.6 (0.2-0.8); MONOCYTES % 8.8 % (4.4-11.3); NEUTROPHILS # (AUTO) 5.2 (2.1-6.9); NEUTROPHILS % 74.1 % (38.7-80.0); PLATELET COUNT 179 x10e3/uL (140-360); RED BLOOD COUNT 3.56 x10e6/uL (3.6-5.1); RED CELL DISTRIBUTION WIDTH 14.1 % (11.7-14.4)
[2022-07-23 06:18] LABS: ALBUMIN/GLOBULIN RATIO 0.7 (0.8-2.0); ANION GAP 13.4 mmol/L (8-16); CALCIUM 8.9 mg/dL (8.4-10.2); CREATININE, SERUM 1.01 mg/dL (0.57-1.11); POTASSIUM 4.4 mmol/L (3.5-5.1)
[2022-07-23 06:28] LABS: CREATINE KINASE MB 1.1 ng/mL (0-5.0)
[2022-07-23] MEDS ORDERED: Morphine 4mg INJECTION 4 MG/ML INJ IV PRN (07:15)
[2022-07-23] MEDS ORDERED: ONDANSETRON HCL INJ 2MG/ML 2ML 2 MG/ML VIAL IV PRN (07:15)
[2022-07-23] MEDS ORDERED: ASPIRIN 81 MG CHEW TAB PO ONE (07:15)
[2022-07-23] MEDS ORDERED: ZOLPIDEM TARTRATE 10 MG TAB PO PRN (07:45)
[2022-07-23] MEDS ORDERED: ACETAMINOPHEN 325 MG TAB PO PRN (07:45)
[2022-07-23] MEDS ORDERED: DEXTROSE 50% SYRINGE 50 ML IV PRN (08:00)
[2022-07-23] MEDS ORDERED: PREGABALIN 75 MG CAP PO SCH (09:00)
[2022-07-23] MEDS ORDERED: DOCUSATE SODIUM 100 MG CAP PO SCH (09:00)
[2022-07-23] MEDS: MULTIVITAMINS/MINERALS TAB PO SCH (09:00)
[2022-07-23] MEDS ORDERED: CARBAMAZEPINE 200 MG TAB PO SCH (09:00)
[2022-07-23] MEDS ORDERED: MAGNESIUM OXIDE 400 MG TAB PO SCH (09:00)
[2022-07-23] MEDS: OYST-CAL-D 500MG TABLET PO SCH ×3 (09:00→21:10)
[2022-07-23] MEDS: LOSARTAN POTASSIUM 25 MG TAB PO SCH (09:00)
[2022-07-23 10:15] VITALS: BP 130/89
[2022-07-23 11:25] VITALS: BP 130/89
[2022-07-23] MEDS ORDERED: ASPIRIN81 MG PO (11:45)
[2022-07-23] MEDS ORDERED: GLIPIZIDE5 MG PO (11:45)
[2022-07-23] MEDS ORDERED: NEURONTIN300 MG PO (11:45)
[2022-07-23] MEDS ORDERED: CARISOPRODOL 350 MG TAB PO SCH (12:00)
[2022-07-23] MEDS ORDERED: PROMETHAZINE HCL 25 MG TAB PO PRN (12:00)
[2022-07-23] MEDS: INSULIN REGULAR, HUMAN 100 UNIT/1 ML SQ SCH ×3 (12:05→21:00)
[2022-07-23 12:29] LABS: CLARITY,URINE TURBID (CLEAR); COLOR,URINE YELLOW (YELLOW); KETONES,URINE NEGATIVE (NEGATIVE); LEUKOCYTE ESTERASE ,URINE SMALL (NEGATIVE); NITRITE,URINE POSITIVE (NEGATIVE); PROTEIN,URINE DIPSTICK 1+ (NEGATIVE); URINE UROBILINOGEN 0.2 mg/dL (0.2 - 1)
[2022-07-23 12:43] LABS: BACTERIA,URINE MANY /HPF; EPITHELIAL CELLS,URINE RARE /LPF; RBC,URINE 0-5 /HPF (0-5); WBC,URINE (MAN) 21-50 /HPF (0-5)
[2022-07-23 14:52] LABS: CREATINE KINASE MB 1.4 ng/mL (0-5.0)
[2022-07-23 15:25] VITALS: BP 138/60
[2022-07-23 20:00] VITALS: BP 133/51
[2022-07-23] MEDS ORDERED: GABAPENTIN 300 MG CAP PO SCH (21:00)
[2022-07-23] MEDS ORDERED: ATORVASTATIN 20 MG TAB PO SCH (21:00)
[2022-07-23] MEDS: DOCUSATE SODIUM 100 MG CAP PO SCH (21:08)
[2022-07-23] MEDS: MAGNESIUM OXIDE 400 MG TAB PO SCH (21:09)
[2022-07-23] MEDS: CARBAMAZEPINE 200 MG TAB PO SCH (21:10)
[2022-07-24] MEDS: HYDROCODONE/APAP 10MG-325MG TAB PO PRN ×2 (00:31→06:54)
[2022-07-24 00:46] VITALS: BP 144/59
[2022-07-24 05:53] VITALS: BP 148/63
[2022-07-24 06:42] LABS: BASOPHILS % 0.6 % (0.0-1.0); EOSINOPHILS # (AUTO) 0.1 (0.0-0.4); EOSINOPHILS % 1.8 % (0.0-6.0); HEMATOCRIT 31.1 % (34.2-44.1); HEMOGLOBIN 9.9 g/dL (12.0-16.0); LYMPHOCYTES # (AUTO) 1.3 (1.0-3.2); LYMPHOCYTES % 24.6 % (18.0-39.1); MEAN CORPUSCULAR HGB CONC 31.8 g/dL (31-35); MEAN CORPUSCULAR VOLUME 103.7 fL (81-99); MONOCYTES # (AUTO) 0.6 (0.2-0.8); MONOCYTES % 11.2 % (4.4-11.3); NEUTROPHILS # (AUTO) 3.4 (2.1-6.9); NEUTROPHILS % 61.4 % (38.7-80.0); PLATELET COUNT 153 x10e3/uL (140-360); RED CELL DISTRIBUTION WIDTH 14.7 % (11.7-14.4)
[2022-07-24] MEDS ORDERED: ATORVASTATIN CA20 MG PO (06:47)
[2022-07-24 06:59] LABS: ANION GAP 13.4 mmol/L (8-16); CALCIUM 8.8 mg/dL (8.4-10.2); CREATININE, SERUM 0.87 mg/dL (0.57-1.11); POTASSIUM 4.4 mmol/L (3.5-5.1)
[2022-07-24 07:08] LABS: CREATINE KINASE MB 0.7 ng/mL (0-5.0)
[2022-07-24] MEDS ORDERED: GLIPIZIDE 5 MG TAB PO SCH (07:30)
[2022-07-24 07:59] VITALS: BP 137/78
[2022-07-24 08:00] VITALS: BP 137/78
[2022-07-24] MEDS: MAGNESIUM OXIDE 400 MG TAB PO SCH (08:57)
[2022-07-24] MEDS: MULTIVITAMINS/MINERALS TAB PO SCH (08:57)
[2022-07-24] MEDS: CARBAMAZEPINE 200 MG TAB PO SCH (08:57)
[2022-07-24] MEDS: DOCUSATE SODIUM 100 MG CAP PO SCH (08:57)
[2022-07-24] MEDS: OYST-CAL-D 500MG TABLET PO SCH (08:57)
[2022-07-24] MEDS: LOSARTAN POTASSIUM 25 MG TAB PO SCH (08:58)
[2022-07-24] MEDS: INSULIN REGULAR, HUMAN 100 UNIT/1 ML SQ SCH (08:59)
[2022-07-24] MEDS ORDERED: ASPIRIN 81 MG CHEW TAB PO SCH (09:00)
== END 2022-07-24 12:37 | disposition home or self-care (01) ==
LOC: ER 05:10 → ERHOLD 07:10 → MED/SURG2 09:43
PROVIDERS: ADMIT Internal Medicine; ATTEND Internal Medicine
DX: R07.89 Other chest pain (principal); F41.9 Anxiety disorder, unspecified; S81.811A Laceration without foreign body, right lower leg, initial encounter; U07.1 COVID-19; E66.01 Morbid (severe) obesity due to excess calories; Z68.42 Body mass index [BMI] 45.0-49.9, adult; E11.9 Type 2 diabetes mellitus without complications; I73.9 Peripheral vascular disease, unspecified; M86.9 Osteomyelitis, unspecified; J98.11 Atelectasis; G62.9 Polyneuropathy, unspecified; I11.0 Hypertensive heart disease with heart failure; I50.40 Unspecified combined systolic (congestive) and diastolic (congestive) heart failure; E78.5 Hyperlipidemia, unspecified; X58.XXXA Exposure to other specified factors, initial encounter; Z88.8 Allergy status to other drugs, medicaments and biological substances; Z89.612 Acquired absence of left leg above knee; Z79.82 Long term (current) use of aspirin; Z79.4 Long term (current) use of insulin; Z79.84 Long term (current) use of oral hypoglycemic drugs; Z79.899 Other long term (current) drug therapy; Z86.14 Personal history of Methicillin resistant Staphylococcus aureus infection; Z87.440 Personal history of urinary (tract) infections
CPT/HCPCS: 12002; 36415 ×2; 71045; 80048; 80053; 80061; 81001; 82550 ×2; 82553 ×2; 82948 ×2; 83036; 83880; 84484 ×2; 85025 ×2; 93005; 93306; 94799; 97161; 97530; 99252; 99285; G0378 ×2; J1817; U0002